=== PATIENT | male | born 1955 | race Caucasian/White ===

== ENCOUNTER → 2020-12-30 14:44 | Outpatient (BNVA) | payer OTHER, SELFPAY | PROVIDERS: PCP Internal Medicine; Visit Provider Urology ==

== ENCOUNTER → 2021-05-04 08:29 | Outpatient (BNVA) | payer OTHER, SELFPAY | PROVIDERS: PCP Internal Medicine; Visit Provider Urology ==

== ENCOUNTER → 2022-08-09 11:35 | Outpatient (BNVA) | payer OTHER, SELFPAY | PROVIDERS: PCP Internal Medicine; Visit Provider Psychiatry & Neurology Psychiatry | DX: Z13.89 Encounter for screening for other disorder (principal) ==

== ENCOUNTER 2022-09-06 22:18 | Emergency (ER) | payer OTHER, SELFPAY ==
--- NOTE | ~2022-09-06 | XR_ITS ---
EXAMINATION: XR HAND, LEFT CLINICAL INFORMATION: Trauma. COMPARISON: None available. TECHNIQUE: PA, lateral, and oblique views of the left hand. FINDINGS: Comminuted fracture of the first distal phalanx. Surrounding soft tissue thickening. No other fractures. No unexpected radiopaque foreign bodies. XR/XR hand LT min 3V IMPRESSION: Comminuted fracture of the first distal phalanx.
[2022-09-06 22:27] VITALS: BP 149/75; PULSE 84; RESP 16; TEMP 37.2; O2SAT 98; BMI 23.6
--- NOTE | 2022-09-07 00:47 | ED.EXTPRO ---
HPI - Extremity Problem General Chief complaint: Extremity Injury, Upper Stated complaint: left thumb injury Time Seen by Provider: 09/07/22 00:46 Source: patient Mode of arrival: ambulatory Limitations: no limitations History of Present Illness HPI Narrative: Patient accidentally smashed his left thumb and trunk door comes here with subungual hematoma and swelling of the left thumb no other injury patient is on aspirin Related Data Home Medications Medication Instructions Recorded Confirmed dexlansoprazole 60 mg 60 mg PO DAILY 11/02/21 08/09/22 capsule,biphase delayed release (Dexilant) ketoconazole 2 % topical cream 1 appl topical 11/02/21 08/09/22 lidocaine 5 % topical patch 1 patch topical DAILY 11/02/21 08/09/22 nortriptyline 10 mg capsule 10 mg PO BID 11/02/21 08/09/22 atorvastatin 10 mg tablet 10 mg PO DAILY 08/09/22 08/09/22 rimegepant 75 mg disintegrating 75 mg PO Q OTHER DAY 08/09/22 08/09/22 tablet (Nurtec ODT) tizanidine 2 mg capsule 2 mg PO DAILY 08/09/22 08/09/22 topiramate 50 mg tablet 50 mg PO DAILY 08/09/22 08/09/22 Previous Rx's Medication Instructions Recorded trazodone 100 mg tablet 100 mg PO BEDTIME #90 tabs 04/16/22 duloxetine 30 mg capsule,delayed 30 mg PO BID #14 caps 08/15/22 release Allergies Allergy/AdvReac Type Severity Reaction Status Date / Time No Known Allergies Allergy Verified 09/07/22 00:28 Review of Systems Review of Systems: Yes all other systems are reviewed and are negative PMFSH Social History Social History Smoked in Last 30 Days: No Use of substances other than those prescribed or required for medical reasons: No Advance Directives: No Advance Directives Information Provided: Yes Physical Exam Vital Signs: Vital Signs: Last Vital Signs Temp 98.9 F 09/06/22 22:27 Pulse 84 09/06/22 22:27 Resp 20 09/07/22 01:58 BP 149/75 H 09/06/22 22:27 Pulse Ox 98 09/06/22 22:27 O2 Del Method Room Air 04/20/23 22:27 BMI result Body Mass Index 23.6 Extrem: Hand/finger images: 1. Subungual hematoma with swelling of the thumb neurovascular intact Procedures Nail Trephination Location (finger): left and thumb Method of drainage: nail cautery Procedure successful: Yes Patient tolerated procedure: No Complications Discharge Plan Discharge Clinical Impression: Fracture of thumb, left, closed, Hematoma, subungual, thumb, left Patient Disposition: Home, Self-Care Instructions: Finger Fracture (ED) Additional Instructions: Local care as advised Wear the splint for support for 4-6 weeks Follow-up with orthopedic Ibuprofen of pain Prescriptions: No Action trazodone 100 mg tablet 100 mg PO BEDTIME Qty: 90 1RF duloxetine 30 mg capsule,delayed release(DR/EC) 30 mg PO BID Qty: 14 0RF lidocaine 5 % adhesive patch,medicated 1 patch topical DAILY nortriptyline 10 mg capsule 10 mg PO BID ketoconazole 2 % cream 1 appl topical dexlansoprazole [Dexilant] 60 mg capsule,biphase delayed releas 60 mg PO DAILY atorvastatin 10 mg tablet 10 mg PO DAILY topiramate 50 mg tablet 50 mg PO DAILY Nurtec ODT 75 mg tablet,disintegrating 75 mg PO Q OTHER DAY tizanidine 2 mg capsule 2 mg PO DAILY Referrals: Karen Trujillo MD [Physician] - 1 week Interventions: ED Discharge Assessment Last Done: 09/07/22 02:00 Discharge Date/Time: 09/07/22 02:01
[2022-09-07 01:58] VITALS: RESP 20
--- NOTE | 2022-09-07 01:58 | PC.NURSE ---
Pt a&o, no sob or chest pain, reviewed discharge instructions with pt, pt verbalized understanding, finger wrapped, positive cms, pulses.
== END 2022-09-07 02:01 | disposition home or self-care (01) ==
PROVIDERS: Emergency Provider Internal Medicine; PCP Internal Medicine
DX: S60.112A Contusion of left thumb with damage to nail, initial encounter (principal); S62.522A Displaced fracture of distal phalanx of left thumb, initial encounter for closed fracture; W23.0XXA Caught, crushed, jammed, or pinched between moving objects, initial encounter; Y93.9 Activity, unspecified; Y92.9 Unspecified place or not applicable; Y99.9 Unspecified external cause status
CPT/HCPCS: 11740; 73130; 99283; 99284

== ENCOUNTER 2022-09-11 07:10 | Outpatient (REF) | payer OTHER, SELFPAY ==
--- NOTE | ~2022-09-11 | XR_ITS ---
EXAMINATION: XR HAND, LEFT CLINICAL INFORMATION: Pain COMPARISON: Hand radiographs 09/07/2022 TECHNIQUE: PA, lateral, and oblique views of the left hand. FINDINGS: Again seen is a comminuted minimally displaced fracture of the first proximal phalanx, with minimal volar angulation. No new fracture or dislocation. Similar soft tissue swelling about the first digit. Joint spaces are maintained. XR/XR hand LT min 3V IMPRESSION: Again seen is a comminuted minimally displaced fracture of the first proximal phalanx, with minimal volar angulation. Similar soft tissue swelling about the first digit.
== END 2022-09-11 07:11 | disposition home or self-care (01) ==
LOC: HO.HOSX 07:10
PROVIDERS: Visit Provider Physician Assistant
DX: S62.522B Displaced fracture of distal phalanx of left thumb, initial encounter for open fracture (principal)
CPT/HCPCS: 73130

== ENCOUNTER → 2022-11-02 10:26 | Outpatient (BNVA) | payer MEDICARE, SELFPAY | PROVIDERS: PCP Internal Medicine; Visit Provider Urology | DX: R97.20 Elevated prostate specific antigen [PSA] (principal) | CPT/HCPCS: 51798; 99212 ==

== ENCOUNTER 2022-12-04 17:07 | Emergency (ER) | payer MEDICARE, SELFPAY ==
--- NOTE | ~2022-12-04 | XR_ITS ---
EXAMINATION: XR HAND, LEFT CLINICAL INFORMATION: Injury left fifth digit. COMPARISON: None available. TECHNIQUE: PA, lateral, and oblique views of the left hand. FINDINGS: Comminuted fracture of the distal tuft of the fifth finger. Fracture fragments mildly displaced. Associated soft tissue laceration and bandage over the distal fifth finger. No radiopaque foreign body. XR/XR hand LT 2V IMPRESSION: Comminuted fracture of the distal tuft of the fifth finger.
--- NOTE | 2022-12-04 17:51 | ED_ITS ---
HPI - Extremity Injury (Upper) General Chief Complaint: Extremity Injury, Upper Stated Complaint: left hand finger injury Time Seen by Provider: 12/04/22 19:11 Source: patient Mode of arrival: ambulatory History of Present Illness HPI narrative: 67-year-old male up-to-date on tetanus crush his left 5th finger tip between 2 logs. Related Data Home Medications Medication Instructions Recorded Confirmed dexlansoprazole 60 mg 60 mg PO DAILY 11/02/21 11/02/22 capsule,biphase delayed release (Dexilant) ketoconazole 2 % topical cream 1 appl topical 11/02/21 11/02/22 lidocaine 5 % topical patch 1 patch topical DAILY 11/02/21 11/02/22 nortriptyline 10 mg capsule 10 mg PO BID 11/02/21 11/02/22 atorvastatin 10 mg tablet 10 mg PO DAILY 08/09/22 11/02/22 tizanidine 2 mg capsule 2 mg PO DAILY 08/09/22 11/02/22 topiramate 50 mg tablet 50 mg PO DAILY 08/09/22 11/02/22 Previous Rx's Medication Instructions Recorded trazodone 100 mg tablet 100 mg PO BEDTIME #90 tabs 09/27/22 duloxetine 30 mg capsule,delayed 30 mg PO BID #14 caps 11/26/22 release amoxicillin 875 mg-potassium 1 tab PO BID 5 days #10 tabs 12/04/22 clavulanate 125 mg tablet Allergies Allergy/AdvReac Type Severity Reaction Status Date / Time No Known Allergies Allergy Verified 11/02/22 10:34 Review of Systems Review of Systems: Pertinent positives and negatives as stated in HPI [facility] Past Medical History Source: nursing notes reviewed Medical History Chronic headache disorder Dysthymia (or depressive neurosis) Generalized anxiety disorder History of GI bleed Social History Social History Advance Directives: No Advance Directives Information Provided: No Current occupational status: employed 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 GENERAL: Well developed, well nourished, in no acute distress. HEAD: Normocephalic/atraumatic EYES: PERRLA, EOMI LUNGS: Normal breath sounds. No adventitious sounds or accessory muscle use. SpO2<99> CARDIOVASCULAR: Regular rate and rhythm without noted murmurs ABDOMEN: Soft, non-tender, non-distended with bowel sounds. MUSCULOSKELETAL: No tenderness, deformities, or effusions noted on gross inspection. EXTREMITIES: No cyanosis, clubbing or edema; LEFT 5TH DIGIT: There is crust tissue but tip of finger is intact, there does not appear to be any nail involvement. SKIN: Inspection of the skin reveals no rashes NEUROLOGIC: Alert and oriented x 4. Strength and sensation to light touch were grossly intact x 4. Course Course Course Narrative: This is a rapid medical exam. Deferred additional HPI, ROS, PE to primary provider. 67 yo male right hand dominant here with complaints of crush injury to left 5th finger which occurred while working. On exam patient has a laceration to the distal volar aspect of the 5th digit on the left hand that will need suture repair. Will check x-ray due to crush injury. His tetanus up-to-date. Vital stable Reevaluation(s) Reevaluation #1: This laceration was closed in conjunction with [facility]. See procedure note. Medical Decision Making Medical Decision Making MDM Narrative: 67-year-old male with history and clinical presentation consistent with crush laceration to the distal tip of the left 5th digit, on review of x-ray there is a small tuft fracture, will close with sutures and discharged with a short course of antibiotics, no tetanus vaccine at this time as patient is up-to-date. Procedures Laceration Laceration 1: Site: hand (left 5th digit ) Side (If applicable): left Size (cm): 2 Description: flap and irregular Pre-repair: wound explored and irrigated extensively (1L NS ) Skin layer closed with: vicryl Size (cm): 5-0 Number of sutures: 6 Technique: simple, interrupted Laceration 2: Site: hand (left 5th digit ) Side (If applicable): left Size (cm): 1.5 Description: flap and irregular Depth: simple, single layer Pre-repair: wound explored and irrigated extensively (1L NS) Skin layer closed with: vicryl Size (cm): 5-0 Number of sutures: 3 Technique: simple, interrupted Nerve Block Nerve Block 1: Time out performed: Yes Local Anesthetic: lidocaine 1% Amount of anesthesia used (mL): 4 Side: left Nerve Blocks: digital Procedure Successful: Yes Patient Tolerated Procedure: well Complications: none Discharge Plan Discharge Clinical Impression: Laceration of finger of left hand, Closed fracture of tuft of distal phalanx of finger Patient Disposition: Home, Self-Care Instructions: Care For Your Stitches (ED), Laceration (ED), Finger Fracture (ED) Additional Instructions: 1. Resume all home medications as prescribed. Complete the course of antibiotics as prescribed. 2. Recommend [id number] Tylenol/ibuprofen as needed for pain control. Keep finger elevated when possible. 3. Return for suture removal in 7 days Return to the ER for any worsening symptoms. Prescriptions: New amoxicillin-pot clavulanate 875-125 mg tablet 1 tab PO BID 5 Days Qty: 10 0RF No Action trazodone 100 mg tablet 100 mg PO BEDTIME Qty: 90 1RF duloxetine 30 mg capsule,delayed release(DR/EC) 30 mg PO BID Qty: 14 0RF lidocaine 5 % adhesive patch,medicated 1 patch topical DAILY nortriptyline 10 mg capsule 10 mg PO BID ketoconazole 2 % cream 1 appl topical dexlansoprazole [Dexilant] 60 mg capsule,biphase delayed releas 60 mg PO DAILY atorvastatin 10 mg tablet 10 mg PO DAILY topiramate 50 mg tablet 50 mg PO DAILY tizanidine 2 mg capsule 2 mg PO DAILY Referrals: Nawaf Willams MD [Primary Care Provider] -
[2022-12-04 17:52] VITALS: BP 155/99; PULSE 68; RESP 18; TEMP 36.6; O2SAT 99; BMI 25.1
[2022-12-04 19:20] VITALS: BP 144/87; PULSE 66; RESP 14
--- NOTE | 2022-12-04 19:28 | PC.NURSE ---
Patient presents to ED with complaints of left 5th digit pain. Around 17:00 patient was chopping wood and dropped a log on his left hand. Patient states that his finger feels cold. Bandage removed by this nurse, bleeding has stopped at this time, lacerations to medial and lateral sides of finger. +sensation and movement. Alert and oriented x3, speaking clear full sentences, resp even and unlabored, skin warm dry intact.
--- OUTSIDE RECORDS SUMMARY | 2022-12-04 19:33 | XMS_ITS | Patient Health Record ---
Author Name Unknown Organization [facility] Address [address] [place] [address] Care Team Providers Care Infantryman Name Role Phone Arnaldo Archer Primary Care Provider Nawaf Willams Unavailable Unavailable Lauren Tomlin Unavailable Slime Churchill Unavailable [phone] ALLERGIES No Known Allergies REASON FOR REFERRAL No Information MEDICATIONS Medication SIG (Take, Route, Frequency, Duration) Notes Start Date End Date Status Ubrelvy 100 MG 1 tab along with 2 ibuprofen Orally at onset of migraine. May repeat once after 2 hrs if headache returns. for 30 days 10/23/2022 04/20/2023 Active Vitamin B-2 100 MG 2 tablets Orally Twice a day with meals for 30 days 04/29/[address] 30 MG CAP 60 1 qam 04/28/2020 Not-Taking Eletriptan Hydrobromide 40 MG 1 tablet Orally at onset of migraine. May repeat dose after 2 hours if migraine recurs. for 30 days Active Sildenafil Citrate 50 MG 1 tablet as nee ded Orally Once a day for 30 days 04/28/2020 Active GLUCOSAMINE-CHONDROITIN LIQ 1,500-1,200 MG/30 ML 0 1 qhs for 30 04/28/[address] 60 MG CAPSULE 0 1 qam for 30 0 Active Nurtec 75 MG 1 tablet on the tongue and allow to dissolve Orally Not-Taking tiZANidine HCl 2 MG 1 capsule as needed Orally At time of sleep for 90 days Active traZODone HCl 100 MG 1 tablet at bedtime Orally Once a day Active DULoxetine HCl 30 MG 2 capsules Orally a t bedtime for 30 days 03/08/2022 Active LOMOTIL 2.5-0.025 MG TABLET 0 1 tab prn for 30 04/28/2020 Active VITAMIN D3 1,000 UNIT SOFTGEL 25 MCG (1,000 UNIT) 0 1 qam for 30 04/28/2020 Active ring relief 0 1 qhs for tinnitus for 30 04/28/2020 Active Nortriptyline HCl 10 MG 2 capsule by daniel th at bedtime for 30 days Active Topiramate 50 MG 1 tablet Orally Once a day for 90 days Active SOCIAL HISTORY Sex Assigned At : Social History Observation Description Sex Assigned At Unknown PROBLEMS Problem Type ICD Code Onset Dates Problem Status W/U Status Risk SNOMED Code Notes Problem Chronic migraine without aura, not intractable, without status migrainosus (G43.709) Active confirmed Problem Chronic migraine without aura, intractable, with status migrainosus (G43.711) Active confirmed Chronic intractable migraine without aura ([id number]) VITAL SIGNS Heart Rate 66 /min 10/23/2022 Blood pressure diastolic 87 mm Hg 10/23/2022 Weight-kg 76.79 kg 10/23/2022 Height 69 in 10/23/2022 Blood pressure systolic 133 mm Hg 10/23/2022 Weight 169.3 lbs 10/23/2022 BMI 25 kg/m2 10/23/2022 Encounters Encounter Location Date [facility] [address] [place] [id number] 03/08/2022 Lauren Tomlin Chronic migrai ne without aura, intractable, with status migrainosus G43.711 [facility] [address] [address] 08/20/2022 Slime Zhao Chronic migraine without aura, intractable, with status migrainosus G43.711 [facility] [address] [address] 10/23/2022 Slime Zhao Chronic migraine without aura, not intractable, without status migrainosus G43.709 [facility] [address] [place] [id number] 12/05/2021 Arnaldo Méndezley [facility] [address] [address] 12/28/2021 Arnaldo Archer [facility] [address] [address] 11/19/2022 Slime Churchill [facility] [address] [address] 12/03/2022 Slime Churchill ASSESSMENTS Encounter Date Diagnosis Assessment Notes Treatment Notes Treatment Clinical Notes 03/08/2022 Chronic migraine without aura, intractable, with status migrainosus (ICD-10 - G43.711) Increase Duloxetine, 30mg tablets sent, take total of 90mg a day for 1 week, then increase to 120mg a day. Follow up in 3-4 months or sooner as needed Patient agrees with the plan. All questions were answered. Patient instructed to call with any questions or concerns. Patient instructed to keep headache logs. Reviewed worrisome signs and when to call- change in headache pattern, worsening headache, headache that awakens, dizziness, vision changes, balance changes, changes with speech, worst headache of life. Medication reconciliation completed. Previous office visit note reviewed. 08/20/2022 Chronic migraine without aura, intractable, with status migrainosus (ICD-10 - G43.711) Patient given Ublelvy samples in office to trial. Continue current medications as prescribed. Follow up in 2 months or sooner as needed. Patient agrees with plan. All questions and concerns addressed. Patient instructed to maintain headache logs. Patient advised to contact office for any change in headache pattern, increase in frequency, duration, or severity of headaches. Medication reconciliation completed. Previous office visit note reviewed. 10/23/2022 Chronic migraine without aura, not intractable, without status migrainosus (ICD-10 - G43.709) Continue current medications as prescribed. Follow up in 4 months or sooner as needed. Patient agrees with plan. All questions and concerns addressed. Patient instructed to maintain headache logs. Patient advised to contact office for any change in headache pattern, increase in frequency, duration, or severity of headaches. Medication reconciliation completed. Previous office visit note reviewed. PLAN OF TREATMENT Next Appt Details Provider Name:Slime Huston is, 02/20/2023 09:00:00 AM, [address], [address], [place], [address], Insurance Providers Payer Name Payer Address Payer Phone Subscriber Number Group Number Insured Name Patient Relationship to Insured Coverage Start Date Coverage End Date [facility] [address] [place] [id number] Samuel Mcdonnell Self - patient is the insured 3 MEDICAL (GENERAL) HISTORY Medical History History ICD Code Headaches Anxiety GERD GI bleed Erectile Dysfunction Sleep disturbance HLD Surgical History Surgery Date(Month/Year) left elbow surgery appendectomy Hospitalization History Reason Date(Month/Year) Broken left hand 09/2022
== END 2022-12-04 21:47 | disposition home or self-care (01) ==
PROVIDERS: Emergency Provider Student in an Organized Health Care Education/Training Program; PCP Internal Medicine
DX: S62.637B Displaced fracture of distal phalanx of left little finger, initial encounter for open fracture (principal); W23.0XXA Caught, crushed, jammed, or pinched between moving objects, initial encounter; Y93.9 Activity, unspecified; Y92.9 Unspecified place or not applicable; Y99.9 Unspecified external cause status
CPT/HCPCS: 12002; 73120; 99283

== ENCOUNTER 2023-01-23 11:42 | Outpatient (AMB) | payer MEDICARE, SELFPAY ==
--- NOTE | 2023-01-23 11:51 | MHC.OFFVISPS ---
Intake Intake Visit Reasons: depression Allergies No Known Allergies Allergy (Verified 11/02/22 10:34) Medication List - Last Reconciled 01/23/23 by Ricky Meraz MD amoxicillin-pot clavulanate 875-125 mg 1 tab PO BID 5 days atorvastatin 10 mg PO DAILY dexlansoprazole (Dexilant) 60 mg PO DAILY duloxetine 30 mg PO BID ketoconazole 2% 1 appl topical lidocaine 5% 1 patch topical DAILY nortriptyline 10 mg PO BID tizanidine 2 mg PO DAILY topiramate 50 mg PO DAILY trazodone 100 mg PO BEDTIME HPI- Psychiatric Chief Complaint: depression HPI Narrative: Pt seen in f/u has some degree chronic anxiety can get quite stressed long hx of chronic daily [facility] in [place] does pressure pt relaxation skills on nortrip 10 bid cymbalta 30 bid topamax 50 mg . Quality of life generally okay does have chronic mild anxiety dysphoria seems to do better when stays on Cymbalta Past Psychiatric History: hyx chronic anxiety and depression Mental Status Exam Mental Status Exam Narrative: Mental Status Exam Narrative: Appearance: Casually dressed Behavior: Cooperative appropriate psychomotor: Within normal limits Speech: Normal volume and prosody Thought proccess logical and goal-directed Thought content: Future oriented focused on mother aging issues Mood: Some anxiety mild dysphoria Affect: Appropriate to mood full affect SI:denies HI:denies VH/AH:none Delusions: None Insight/judgment: Good insight and judgment Memory/cog: Intact Assessment and Plan Assessment & Plan (1) Generalized anxiety disorder: Status: Acute Code(s): F41.1 - Generalized anxiety disorder (2) Dysthymia (or depressive neurosis): Status: Acute Code(s): F34.1 - Dysthymic disorder (3) Chronic headache disorder: Status: Acute Code(s): R51.9 - Headache, unspecified; G89.29 - Other chronic pain Plan Generally improved on duloxetine does better on 60 mg dose continue trazodone chronic recommendations for stress management relaxation techniques breathing Medications: Changed From duloxetine 30 mg PO BID 14 caps 0RF To duloxetine 30 mg PO BID 180 caps 1RF 3 months Refilled trazodone 100 mg PO BEDTIME 90 tabs 1RF Counseling and coordination of Care Details-Self Mgmt counseling: Issues related to chronic headache and management aging issues intermediate issues related to his mother and other aging process Details: I spent [] minutes reviewing the record, seeing the patient and documenting in the medical record. Counseling provided to the patient/caregiver as outlined below. Addressed patient/caregiver concerns regarding current medication regime including effective adherence. Addressed patient/caregiver concerns regarding diagnosis and prognosis including accuracy of diagnosis, prognosis over time, impact of diagnosis. Addressed patient/caregiver concerns regarding impact of recent stressors. 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
== END 2023-01-23 12:11 | disposition home or self-care (01) ==
LOC: HO.HOP 11:42
PROVIDERS: PCP Internal Medicine; Visit Provider Psychiatry & Neurology Psychiatry
DX: F41.1 Generalized anxiety disorder (principal); F34.1 Dysthymic disorder; R51.9 Headache, unspecified; G89.29 Other chronic pain
CPT/HCPCS: 99214

== ENCOUNTER → 2023-01-23 11:42 | Outpatient (BNVA) | payer MEDICARE, SELFPAY | PROVIDERS: PCP Internal Medicine; Visit Provider Psychiatry & Neurology Psychiatry | DX: F34.1 Dysthymic disorder (principal); F41.1 Generalized anxiety disorder; G89.29 Other chronic pain; R51.9 Headache, unspecified; Z79.899 Other long term (current) drug therapy | CPT/HCPCS: 99212 ==

== ENCOUNTER 2023-07-02 12:01 | Outpatient (AMB) | payer MEDICARE, SELFPAY ==
--- NOTE | 2023-07-02 11:26 | MHC.OFFVISPS ---
Intake Intake Visit Reasons: depression Allergies No Known Allergies Allergy (Verified 11/02/22 10:34) HPI- Psychiatric Chief Complaint: depression HPI Narrative: Pt decreased cymbalta to 30 mg secondary to sexual side effects he has not noticed a significant difference regarding his mood or headaches patient has a general chronic low level of dissatisfaction he does continue to work some difficulty dealing with the aging process and issues related to pain lack of energy at times Past Psychiatric History: hyx chronic anxiety and depression Mental Status Exam Mental Status Exam Narrative: Mental Status Exam Narrative: Appearance: Casually dressed Behavior: Cooperative appropriate psychomotor: Within normal limits Speech: Normal volume and prosody Thought proccess logical and goal-directed Thought content: Future oriented focused on aging issues Mood: Some anxiety mild dysphoria Affect: Appropriate to mood full affect SI:denies HI:denies VH/AH:none Delusions: None Insight/judgment: Good insight and judgment patient knows that he needs to maintain some structure would have difficulty with full group home Memory/cog: Intact Assessment and Plan Assessment & Plan (1) Dysthymia (or depressive neurosis): Status: Acute Code(s): F34.1 - Dysthymic disorder (2) Chronic headache disorder: Status: Acute Code(s): R51.9 - Headache, unspecified; G89.29 - Other chronic pain (3) Generalized anxiety disorder: Status: Acute Code(s): F41.1 - Generalized anxiety disorder Plan Patient has been having some degree of erectile dysfunction discuss discussed with him that this could be a sign vascular disease we discussed trying to taper off of Cymbalta and see if that has been a significant contributing factor. Patient has already decreased Cymbalta to 30 mg will try in use every other day for a few weeks and then discontinue. Patient explained possibility of withdrawal symptoms and possible need to lowered at 20 mg. We also discussed option to try an alternative with less propensity for erectile dysfunction. Also discussed use of Flomax possibly for improvement of sleep with question of prostatic hypertrophy patient to discuss this with his primary care or with Dr. White he continues on Topamax 50 mg trazodone 100 mg at bedtime patient does use light box follow-up 3-4 months patient call if withdrawal symptoms were worsening depressive symptoms Counseling and coordination of Care Pt. Self Management counseling: Breathing, Exercise and Behavior activation Medication management counseling: Effectiveness and Side effects Diagnosis and Prognosis Counseling: Impact of diagnosis on life functions and Adequacy of current interventions Details: I spent [42] minutes reviewing the record, seeing the patient and documenting in the medical record. Counseling provided to the patient/caregiver as outlined below. Addressed patient/caregiver concerns regarding current medication regime including effective adherence. Addressed patient/caregiver concerns regarding diagnosis and prognosis including accuracy of diagnosis, prognosis over time, impact of diagnosis. Addressed patient/caregiver concerns regarding impact of recent stressors. 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
== END 2023-07-02 15:32 | disposition home or self-care (01) ==
LOC: HO.HOP 12:01
PROVIDERS: PCP Internal Medicine; Visit Provider Psychiatry & Neurology Psychiatry
DX: F34.1 Dysthymic disorder (principal); R51.9 Headache, unspecified; G89.29 Other chronic pain; F41.1 Generalized anxiety disorder
CPT/HCPCS: 90833; 99213

== ENCOUNTER → 2023-07-02 12:01 | Outpatient (BNVA) | payer MEDICARE, SELFPAY | PROVIDERS: PCP Internal Medicine; Visit Provider Psychiatry & Neurology Psychiatry | DX: F34.1 Dysthymic disorder (principal); F41.1 Generalized anxiety disorder; R51.9 Headache, unspecified; G89.29 Other chronic pain | CPT/HCPCS: 99212 ==

== ENCOUNTER 2023-10-30 08:14 | Outpatient (AMB) | payer MEDICARE, SELFPAY ==
--- NOTE | 2023-10-30 08:21 | MHC.OFFVIS ---
Intake Visit Reasons: 1y PSA(Set) Intake Note: Patient is Present for Follow Up PSA Urology Medication: None Antibiotic Allergies:None Blood Thinners:None Last PVR: Low 11ml Patient denies any urinary issues at this time. Hedge Fund Principal Required: No Allergies No Known Allergies Allergy (Verified 10/30/23 08:22) HPI Comments Details: Samuel is a pleasant male. He is a patient of Dr. Willams. He is referred for the following urologic conditions - elevated PSA - erectile dysfunction - hot flashes Yearly review Stable PSA GLORIA normal Effective voiding parameters with good emptying and stream PCPT 6% high risk - at threshold for MRI/biopsy Erectile dysfunction Progressive Has been on SSRIs Noted to have hot flashes 03:00 in the morning Trial daily tadalafil with three-month follow-up testosterone and estrogen labs - Neurologist called william moon Elevated PSA Reports prior PSA had been upper end normal range Minimal issues with urination GLORIA normal No family history prostate cancer Has been given instructions optimized PSA testing PSA 03/09 3.9, 10/08 3.6, 10/09 3.6, 08/10 4.1 Repeat in 12 months [facility] Medical History Generalized anxiety disorder Dysthymia (or depressive neurosis) History of GI bleed Chronic headache disorder Social History Current occupational status: employed 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 Review of Systems Const Denies chills and Denies fever(s) Card Reports no additional complaints and Denies syncope Resp Denies cough GI Denies abdominal pain and Denies heartburn Reports as per HPI and Denies change in libido Neuro Denies syncope Psych Denies change in libido Endo Denies change in libido Physical Exam Const General: cooperative, healthy appearing, comfortable and no acute distress Orientation/consciousness: patient oriented x3 HEENT Face and sinus: Yes normal facial exam Mouth: moist mucous membranes Neck Neck: Yes normal visual inspection, Yes full ROM and Yes trachea midline Chest Chest palpation & inspection: normal inspection of the chest Resp Effort & Inspection: normal respiratory effort, able to speak in complete sentences and no respiratory distress GI Inspection: Yes normal to inspection Back/Spine/Pelvis Cervical Spine: normal cervical lordosis Thoracic/Lumbar Spine: thoracic and lumbar spine normal to inspection Skin General skin exam: no rashes or lesions noted Neuro General: patient oriented x3, gait normal, tone normal and moves all extremities Extrem General: Yes normal to inspection and Yes capillary refill normal Assessment & Plan Assessment & Plan (1) Hot flashes: Code(s): R23.2 - [place] Category: Medical (2) Erectile dysfunction: Code(s): N52.9 - Male erectile dysfunction, unspecified Category: Medical (3) Elevated PSA: Code(s): R97.20 - Elevated prostate specific antigen [PSA] Category: Medical Plan Three-month follow-up labs Trial tadalafil Orders: Orders Estradiol Ultra Sensitive 3 Months E29.1 - Testicular hypofunction, R23.2 - [place] Prostate Specific Antigen 3 Months R97.20 - Elevated prostate specific antigen [PSA] Testosterone, Free/Total 3 Months R23.2 - [place] Medications: New tadalafil 5 mg PO DAILY 90 days 90 tabs 0RF sexual activity N52.9 - Male erectile dysfunction, unspecified Patient Instructions: Imaging studies, laboratory and physical exam results were discussed and reviewed in detail. No major barriers to patient understanding were identified. An opportunity to ask questions regarding the treatment plan was provided. All questions were answered. The patient expressed understanding and agreement with the above treatment plan. The patient is aware they should contact our office by phone for worsening of their current condition or the appearance of new urologic symptoms. Compliance is encouraged with any medications and followup testing that is ordered. It is a privilege to participate in the urologic care of your patient. If you have any questions or concerns regarding treatment for the above conditions, or other urologic issues, please do not hesitate to contact me. The office telephone contact is [phone]. This note is constructed using voice recognition software. While every effort has been made to ensure accuracy city supervisor errors may have been included. Yours sincerely, Dr Johnny White MD, [facility] - Urology Providers of Expert, Compassionate Care for the Genitourinary System Coding Level of Care Code Est Pt Level 4 (92834) Diagnoses Hot flashes R23.2 Erectile dysfunction N52.9 Elevated PSA R97.20
== END 2023-10-30 08:50 | disposition home or self-care (01) ==
PROVIDERS: PCP Internal Medicine; Visit Provider Urology
DX: R23.2 Flushing (principal); N52.9 Male erectile dysfunction, unspecified; R97.20 Elevated prostate specific antigen [PSA]
CPT/HCPCS: 99213

== ENCOUNTER → 2023-10-30 08:14 | Outpatient (BNVA) | payer MEDICARE, SELFPAY | PROVIDERS: PCP Internal Medicine; Visit Provider Urology | DX: R23.2 Flushing (principal); N52.9 Male erectile dysfunction, unspecified; R97.20 Elevated prostate specific antigen [PSA] | CPT/HCPCS: 99212 ==

== ENCOUNTER 2023-12-19 11:37 | Outpatient (AMB) | payer MEDICARE, SELFPAY ==
--- NOTE | 2023-12-19 11:39 | A.OFFPSYCH_ITS ---
Intake Intake Visit Reasons: depression Allergies No Known Allergies Allergy (Verified 10/30/23 08:22) HPI- Psychiatric Chief Complaint: depression HPI Narrative: Pt is a 68 yo male mother 97 yo living [place] she grew up with certain level of desperation mother worked many hrs in the past .Pt has been dealing with stress related to dealing with his mother's demands lack of appreciation and difficulty that he has in setting limits feeling somewhat guilty at times and how he is feeling. Patient did go off duloxetine did not feel significantly better Past Psychiatric History: hyx chronic anxiety and depression Mental Status Exam Mental Status Exam Narrative: Mental Status Exam Narrative: Appearance: Casually dressed Behavior: Cooperative appropriate psychomotor: Within normal limits Speech: Normal volume and prosody Thought proccess logical and goal-directed Thought content: Future oriented focused on issues with his mother aging issues Mood: Some anxiety Affect: Appropriate to mood full affect SI:denies HI:denies VH/AH:none Delusions: None Insight/judgment: Good insight and judgment patient knows that he needs to maintain some structure would have difficulty with full senior living Memory/cog: Intact Assessment and Plan Assessment & Plan (1) Dysthymia (or depressive neurosis): Status: Acute Code(s): F34.1 - Dysthymic disorder (2) Chronic headache disorder: Status: Acute Code(s): R51.9 - Headache, unspecified; G89.29 - Other chronic pain Plan Continue trazodone duloxetine discontinued monitor response to duloxetine discontinuation would consider spravato TMS continue trazodone patient with chronic tension/migraine headache he is being followed by a specialty Center have discussed his overuse of nonnarcotic pain medication and risks there of Medications: Refilled trazodone 100 mg PO BEDTIME 90 tabs 1RF Discontinued duloxetine Discontinued Reason: Change Referral Type 30 mg PO BID 3 months 180 caps 1RF Counseling and coordination of Care Details-Self Mgmt counseling: Issues related to aging issues related to dealing with narcissistic parent Details: I spent [] minutes reviewing the record, seeing the patient and documenting in the medical record. Counseling provided to the patient/caregiver as outlined below. Addressed patient/caregiver concerns regarding current medication regime including effective adherence. Addressed patient/caregiver concerns regarding diagnosis and prognosis including accuracy of diagnosis, prognosis over time, impact of diagnosis. Addressed patient/caregiver concerns regarding impact of recent stressors. 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
== END 2023-12-19 12:15 | disposition home or self-care (01) ==
LOC: HO.HOP 11:37
PROVIDERS: PCP Internal Medicine; Visit Provider Psychiatry & Neurology Psychiatry
DX: F34.1 Dysthymic disorder (principal); R51.9 Headache, unspecified; G89.29 Other chronic pain
CPT/HCPCS: 99213

== ENCOUNTER → 2023-12-19 11:37 | Outpatient (BNVA) | payer MEDICARE, SELFPAY | PROVIDERS: PCP Internal Medicine; Visit Provider Psychiatry & Neurology Psychiatry ==

== ENCOUNTER 2024-01-27 09:33 | Outpatient (REF) | payer MEDICARE, SELFPAY ==
[2024-01-27 14:10] LABS: Prostate Specific Antigen 3.66 ng/mL (<0.05-4.0)
[2024-01-31 21:28] LABS: Testosterone, Free 19.8 pg/mL (35.0-155.0); Testosterone, Total 367 ng/dL (250-1100)
[2024-02-04 23:38] LABS: Estradiol Ultra Sensitive 13 pg/mL (< OR = 29)
== END 2024-01-27 09:34 | disposition home or self-care (01) ==
LOC: HO.HMGCLDS 09:33
PROVIDERS: PCP Internal Medicine; Visit Provider Urology
DX: E29.1 Testicular hypofunction (principal); R23.2 Flushing; R97.20 Elevated prostate specific antigen [PSA]; Z12.5 Encounter for screening for malignant neoplasm of prostate
CPT/HCPCS: 36415; 82670; 84153; 84402; 84403

== ENCOUNTER 2024-02-27 10:26 | Outpatient (AMB) | payer MEDICARE, SELFPAY ==
--- NOTE | 2024-02-27 10:28 | A.OFFVIS_ITS ---
Intake Visit Reasons: PSA/Testosterone(set) Intake Note: Patient is Present for Telephone Follow Up PSA/Testosterone Urology Med: Tadalafil Antibiotic Allergy:None Blood Thinner:None Allergies No Known Allergies Allergy (Verified 10/30/23 08:22) HPI Comments Details: Samuel is a pleasant male. He is a patient of Dr. Willams. He is referred for the following urologic conditions - elevated PSA - erectile dysfunction - hot flashes Telemedicine Evaluation 15 min Consultation [employer] [facility] Video Three-month follow-up Still with hot flashes Did not notice much benefit with 5 mg tadalafil Testosterone total normal however free is low Estradiol 13 which is a little low for males Increase tadalafil daily to 10 mg and repeat lab work in 2 months Stable PSA GLORIA normal Effective voiding parameters with good emptying and stream PCPT 6% high risk - at threshold for MRI/biopsy Erectile dysfunction Progressive - Has been on SSRIs Noted to have hot flashes 03:00 in the morning Trial daily tadalafil with three-month follow-up testosterone and estrogen labs - Neurologist called william moon Elevated PSA Reports prior PSA had been upper end normal range Minimal issues with urination GLORIA normal No family history prostate cancer Has been given instructions optimized PSA testing PSA 03/09 3.9, 10/08 3.6, 10/09 3.6, 08/10 4.1, 02/10 T 367 F 19 Repeat in 12 months [facility] Medical History Generalized anxiety disorder Dysthymia (or depressive neurosis) History of GI bleed Chronic headache disorder Social History Current occupational status: employed 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 Review of Systems Const All systems reviewed & are unremarkable except as noted in HPI and below Reports no additional complaints Resp Reports no additional complaints GI Reports no additional complaints Reports as per HPI Musc Reports no additional complaints Physical Exam Telemedicine evaluation Appropriate responses Regular breathing rate and rhythm HEENT Head: Yes normal to inspection Ears: hearing grossly normal bilaterally Eyes General: appearance normal, both eyes and all related structures Neck Neck: Yes normal visual inspection Chest Chest palpation & inspection: normal inspection of the chest Resp Effort & Inspection: normal respiratory effort and able to speak in complete sentences Telehealth Telehealth Location of provider rendering services: practice address Location of patient: address on file Patient Identification confirmed using: Name, : Yes Telehealth method: voice only Patient verbally consented to treatment: Yes Patient verbally consented to billing insurance company: Yes Patient informed of any privacy concerns related to visit: Yes Assessment & Plan Assessment & Plan (1) Hot flashes: Code(s): R23.2 - [place] Category: Medical (2) Erectile dysfunction: Code(s): N52.9 - Male erectile dysfunction, unspecified Category: Medical Plan Increased tadalafil 10 mg Consider progesterone Repeat lab work Orders: Orders Sex Hormone Binding Globulin 2 Months N52.9 - Male erectile dysfunction, unspecified Follicle Stimulating Hormone 2 Months N52.9 - Male erectile dysfunction, unspecified Estradiol Ultra Sensitive 2 Months E29.1 - Testicular hypofunction, N52.9 - Male erectile dysfunction, unspecified Testosterone, Free/Total 2 Months N52.9 - Male erectile dysfunction, unspecified TSH reflex Free T4 2 Months N52.9 - Male erectile dysfunction, unspecified Lutenizing Hormone 2 Months N52.9 - Male erectile dysfunction, unspecified Medications: Changed From tadalafil 5 mg PO DAILY 90 days 90 tabs 0RF sexual activity N52.9 - Male erectile dysfunction, unspecified To tadalafil 10 mg PO DAILY 90 tabs 0RF sexual activity 90 days N52.9 - Male erectile dysfunction, unspecified Patient Instructions: Imaging studies, laboratory and physical exam results were discussed and reviewed in detail. No major barriers to patient understanding were identified. An opportunity to ask questions regarding the treatment plan was provided. All questions were answered. The patient expressed understanding and agreement with the above treatment plan. The patient is aware they should contact our office by phone for worsening of their current condition or the appearance of new urologic symptoms. Compliance is encouraged with any medications and followup testing that is ordered. It is a privilege to participate in the urologic care of your patient. If you have any questions or concerns regarding treatment for the above conditions, or other urologic issues, please do not hesitate to contact me. The office telephone contact is [phone]. This note is constructed using voice recognition software. While every effort has been made to ensure accuracy hotel or motel cleaning supervisor errors may have been included. Yours sincerely, Dr Johnny White MD, [facility] - Urology Providers of Expert, Compassionate Care for the Genitourinary System Coding Level of Care Code Tele Est Pt Level 3 (02003) Diagnoses Hot flashes R23.2 Erectile dysfunction N52.9
== END 2024-02-27 11:02 | disposition home or self-care (01) ==
LOC: HO.HUSH 10:26
PROVIDERS: PCP Internal Medicine; Visit Provider Urology
DX: R23.2 Flushing (principal); N52.9 Male erectile dysfunction, unspecified
CPT/HCPCS: 99442

== ENCOUNTER → 2024-02-27 10:26 | Outpatient (BNVA) | payer MEDICARE, SELFPAY | PROVIDERS: PCP Internal Medicine; Visit Provider Urology ==

== ENCOUNTER 2024-03-26 12:56 | Outpatient (AMB) | payer MEDICARE, SELFPAY ==
--- NOTE | 2024-03-26 13:12 | A.OFFPSYCH_ITS ---
Intake Intake Visit Reasons: depression Allergies No Known Allergies Allergy (Verified 10/30/23 08:22) HPI- Psychiatric Chief Complaint: depression HPI Narrative: Pt seen in psych f/u mood has been down has been off cymbalta taking trazadone 100 hs .Pt has chronic manning bilateral goes to [facility] headaches last all day x days often topamax depakote not helpful has tinnitus takes riboflavin has been off cymbalta x 6 months seems like he may be in more of a low mood lack of energy tends to cycle down this time your unclear if related to being off of Cymbalta . Patient with chronic daily headache Past Psychiatric History: hyx chronic anxiety and depression Mental Status Exam Mental Status Exam Narrative: Mental Status Exam Narrative: Appearance: Casually dressed Behavior: Cooperative appropriate psychomotor: Within normal limits Speech: Normal volume and prosody Thought proccess logical and goal-directed Thought content: Future oriented focused on issues with his work possibly cutting back issues regarding to having chronic headache Mood: Some anxiety dysphoria Affect: Appropriate to mood full affect SI:denies HI:denies VH/AH:none Delusions: None Insight/judgment: Good insight and judgment patient knows that he needs to maintain some structure would have difficulty with full usp This continues to be true Memory/cog: Intact Assessment and Plan Assessment & Plan (1) Dysthymia (or depressive neurosis): Status: Acute Code(s): F34.1 - Dysthymic disorder (2) Generalized anxiety disorder: Status: Acute Code(s): F41.1 - Generalized anxiety disorder (3) Chronic headache disorder: Status: Acute Code(s): R51.9 - Headache, unspecified; G89.29 - Other chronic pain Plan restart light box muse headband recommended [facility] headache ctr migralief restart duloxetine 30 mg daily encourage daily meditation question of chronic tension headache patient also remains on nortriptyline 25 b.i.d. by has headache specialist Counseling and coordination of Care Pt. 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 Counseling provided to the patient/caregiver as outlined below. Addressed patient/caregiver concerns regarding current medication regime including effective adherence. Addressed patient/caregiver concerns regarding diagnosis and prognosis including accuracy of diagnosis, prognosis over time, impact of diagnosis. Addressed patient/caregiver concerns regarding impact of recent stressors. 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
== END 2024-03-26 13:41 | disposition home or self-care (01) ==
LOC: HO.HOP 12:56
PROVIDERS: PCP Internal Medicine; Visit Provider Psychiatry & Neurology Psychiatry
DX: F34.1 Dysthymic disorder (principal); F41.1 Generalized anxiety disorder; R51.9 Headache, unspecified; G89.29 Other chronic pain
CPT/HCPCS: 90833; 99213

== ENCOUNTER → 2024-03-26 12:56 | Outpatient (BNVA) | payer MEDICARE, SELFPAY | PROVIDERS: PCP Internal Medicine; Visit Provider Psychiatry & Neurology Psychiatry | DX: R51.9 Headache, unspecified (principal); G89.29 Other chronic pain; F34.1 Dysthymic disorder; F41.1 Generalized anxiety disorder | CPT/HCPCS: 99212 ==

== ENCOUNTER 2024-05-21 13:55 | Outpatient (REF) | payer MEDICARE, SELFPAY ==
--- OUTSIDE RECORDS SUMMARY | 2024-05-21 15:18 | XMS_ITS ---
[facility] Address [address] [place] [address] Care Team Providers Care Formula Checker Name Role Phone Arnaldo Archer Primary Care [...] Ubrelvy 100 MG TAKE 1 TABLET BY ALONG WITH 2 IBUPROFEN AT ONSET OF [...] 08/29/2023 Encounters Encounter Location Date [facility] [address] [place] [address] 08/29/2023 Arnaldo Archer Chronic migraine wit hout [...] Notes * Samuel SPARKSDOB:1954 (69 yo M)Acc No.[id number]:08/29/2023 Progress Notes Patient:?Samuel SPARKS Provider:?Arnaldo Archer MD :1955???Age:68 Y???Sex:Male Francisco e:08/29/2023 Address:[address] [place] [address], [facility] Subjective: * Chief Complaints: * ??? * Medical History:? * Medications:?Taking traZODon e HCl 100 MG Tablet 1 tablet at [...] day , stop date 09/12/2023 Objective: * Vitals:?BP:120/80mm Hg, HR:7 0/min, Wt:170.4lbs, Wt-k.29 kg, Ht: 69 in, BMI:25.16Index, Body Surface Area: 1.94. Assessment: * Assessment: 1.?Chronic migraine without aura, intractable, without status migrainosus - G43.719 (Primary)??? Plan: * Treatment: * Follow Up:?2 Months * Billing Information: * Visit Code:? 54474 OFFICE VISIT,EST PT,LEVEL 4. * Procedure Codes:? * Electronic signature of Franco Archer MD on 05/21/2024 at 03:18 PM EST Sign off status: Pending * Provider:?Arnaldo Archer MD Date:?08/18 Generated for Rachelle guzman/Yannick/eTransmitting on:?05/21/2024 03:18 PM EST
--- OUTSIDE RECORDS SUMMARY | 2024-05-21 15:18 | XMS_ITS ---
[facility] Organization [facility] Address [address] [place] [address] Care Team Providers Care Automotive Sales Professional Name Role Phone Arnaldo Archer Primary Care [...] Encounter Location Date Provider Diagnosis [facility] [address] [place] [address] 10/31/2023 Arnaldo Archer Chronic migraine wit hout aura, intractable, without status migrainosus G43.719 Assessments Encounter Date Diagnosis (ICD Code) Assessment Notes Treatment Notes Treatment Clinical Notes Section Notes 10/31/2023 Chronic migraine without aura, intractable, without status migrainosus (ICD-10 - G43.719) Plan Of Treatment No Information Progress Notes * Samuel SPARSKDOB:1954 (69 yo M)Acc No.[id number]:10/31/2023 Progress Notes Patient:?Samuel SPARKS Provider:?Arnaldo Archer MD :1955???Age:68 Y???Sex:Male Francisco e:10/31/2023 Address:[address] [place] [address], [facility] Subjective: * Chief Complaints: * ??? * Medical History:? * Medications:?Taking Cialis 1 0 MG Tablet 1 tablet Orally Once a [...] and allow to dissolve Orally Objective: * Vitals:?BP:135/85mm Hg, HR:6 5/min, Wt:166.5lbs, Wt-k.52 kg, Ht: 69 in, BMI:24.59Index, Body Surface Area: 1.92. Assessment: * Assessment: 1.?Chronic migraine without aura, intractable, without status migrainosus - G43.719 (Primary)??? Plan: * Treatment: * Billing Information: * Visit Code:? 05162 OFFICE VISIT,EST PT,LEVEL 4. * Procedure Codes:? * Electronic signature of Franco Archer MD on 05/21/2024 at 03:18 PM EST Sign off status: Pending * Provider:?Arnaldo Archer MD Date:?10/18 Generated for Rachelle guzman/Yannick/eTalexismitting on:?05/21/2024 03:18 PM EST
--- OUTSIDE RECORDS SUMMARY | 2024-05-21 15:19 | XMS_ITS ---
Author Organization [facility] Address [address] [facility] [place] [address] Care Team Providers Care Bulk Sealer Name Role Phone Nawaf Willams MD Primary Care Provider UnavailClaudia Salgado [phone] REASON FOR VISIT Formula 7 Encounters Encounter Location Date Provider Diagnosis [address] [place] [address] 04/22/2023 Claudia Osei Plan Of Treatment No Information Progress Notes * Samuel SPARKS TDOB:[birth year] (68 yo M)Acc No.[id number]:04/22/2023 Patient:?Samuel Sparks :1955???Age:68 Y???Sex:Male Address:[address] [place], [place] [address] [address] * true * Date:? Generated for Rachelle guzman/Yannick/eTransmitting on:?05/21/2024 03:18 PM EST
--- OUTSIDE RECORDS SUMMARY | 2024-05-21 15:19 | XMS_ITS | Patient Health Record ---
Author Organization [facility] [place] Address [address] [facility] [place] [address] Care Team Providers Care Scientific Informatics Project Leader Name Role Phone Nawaf Willams MD Primary Care Provider Claudia Griffin Unavailable [phone] Allergies No Known Allergies Reason For Referral No Information Medications Medication SIG (Take, Route, Frequency, Duration) Notes Start Date End Date Status Topamax 50 MG 1 tablet Orally Once a day Active tiZANidine HCl 2 MG 1 tablet as needed O rally Three times a day Active traZODone HCl 100 MG 1 tablet at bedtime Orally Once a day Active Dexilant 60 MG 1 capsule Orally Onc e a day Active Cymbalta 30 MG 1 capsule Orally Onc e a day for 30 day(s) 02/15/2023 Active Sildenafil Citrate 100 MG 1 tablet as ne eded Orally Once a day Active Relpax 40 MG 1 tablet Orally Once a day Active Nortriptyline HCl Ac tive Social History Tobacco Use: Social History Observation Description Date Details (start date - stop date) Never Smoker NA - NA Tobacco Use/Smoking Question Answer Notes Are you a: nonsmoker Additional Findings: Tobacco Non-User Current no n-smoker Alcohol Screen Question Answer Notes Did you have a drink contain ing alcohol in the past year? Yes How often did you have a dri nk containing alcohol in the past year? 2 to 3 times a week (3 points) Points 3 Interpretation Negative Tobacco use other than smoking: Question Answer Notes Are you an other tobacco user? No Encounters Encounter Location Date Provider Diagnosis [facility] [address] [place] [address] 01/22/2024 Claudia Farnaz Plan Of Treatment No Information Insurance Providers Payer Name Payer Address Payer Phone Subscriber Number Group Number Insured Name Patient Relationship to Insured Coverage Start Date Coverage End Date [facility] [address] [place] [address] [id number] Samuel Mcdonnell Self - patient is the insured 3 [employer] [address] [facility] [place] [address] [id number] Samuel Mcdonnell Self - patient is the insured 3 Medical (General) History Medical History History ICD Code Anxiety CAD (Cholesterol) covid-19 Headaches Stomach ulcer Joint implants/screws Surgical History Surgery Date(Month/Year) tendon 2012 & 2022
--- OUTSIDE RECORDS SUMMARY | 2024-05-21 15:19 | XMS_ITS ---
[facility] Address [address] [facility] [place] [address] Care Team Providers Care Revenue Integrity Analyst Name Role Phone Imer SYLVESTER, Nawaf Primary Care Provider Claudia Griffin [phone] REASON FOR VISIT r/s for sooner apt Encounters Encounter Location Date Provider Diagnosis [facility] [address] [place] [address] 03/12/2023 Claudia Osei Plan Of Treatment No Information Progress Notes * Samuel SPARKS TDOB:[birth year] (69 yo M)Acc No.[id number]:03/12/2023 Progress Notes Patient:?Samuel SPARKS Provider:?Claudia Osei DPM :1955???Age:68 Y???Sex:Male Francisco e:03/12/2023 Address:[address] [place] [address], [id number] Pcp:Nawaf Willams MD Subjective: * Chief Complaints: * ???1. R/s for sooner apt. * Medical History:? Objective: * Vitals:? Assessment: Plan: * Treatment: * Images: * The named appointment provid er may or may not be the originator of this progress note, and it is not deemed complete until electronically signed by the appointment provider. Sign off status: Pending * Provider:?Claudia Osei DPM Date:? Generated for Rachelle guzman/Yannick/Ortega on:?05/21/2024 03:19 PM EST
--- OUTSIDE RECORDS SUMMARY | 2024-05-21 15:19 | XMS_ITS ---
Author Organization [facility] Address [address] [facility] [place] [address] Care Team Providers Care Vehicle Assembler Name Role Phone Nawaf Willams MD Primary Care Provider Unavaila Claudia Queen Unavailable [phone] REASON FOR VISIT BUY Formula 7 Encounters Encounter Location Date Provider Diagnosis [address] [place] [address] 01/22/2024 Claudia Osei Plan Of Treatment No Information Progress Notes * Samuel SPARKS TDOB:[birth year] (69 yo M)Acc No.[id number]:01/22/2024 Patient:?Samuel Sparks :1955???Age:69 Y???Sex:Male Address:[address] [place], [place] [address] [address] * Addendum: * ? true * Date:? Generated for Rachelle guzman/Yannick/eTransmitting on:?05/21/2024 03:18 PM EST
--- OUTSIDE RECORDS SUMMARY | 2024-05-21 15:19 | XMS_ITS | Patient Health Record ---
Author Organization [facility] Address [address] [place] [address] Care Team Providers Care Acid Polymerization Operator Name Role Phone Arnaldo Archer Primary Care Provider Nawaf Willams Unavailable Unavailable Slime Churchill Unavailable [phone] Allergies No Known Allergies Reason For Referral No Information Medications Medication SIG (Take, Route, Frequency, Duration) Notes Start Date End Date Status Cialis 10 MG 1 tablet Orally Once a day 10/31/[address] 30 MG CAP 60 1 qam 04/28/2020 Not-Taking Nurtec 75 MG 1 tablet on the [...] if migraine recurs. for 30 days Active GLUCOSAMINE-CHONDROITIN LIQ 1,500-1,200 MG/30 ML 0 1 qhs for 30 04/28/2020 A ctive ring relief 0 1 qhs for tinnitus for 30 04/28/2020 Active traZODone HCl 100 MG 1 tablet at bedtime Orally Once a day Active DEXILANT DR 60 MG CAPSULE 0 1 qam for 30 0 Active Ubrelvy 100 MG TAKE 1 TABLET BY SOURAV ALONG WITH 2 IBUPROFEN AT ONSET OF MIGRAINE. MAY REPEAT 1 TIME AFTER 2 HOURS IF HEADACHE RETURNS for 90 days Active Problems Problem Type SNOMED Code ICD Code Onset Dates Problem Status W/U Status Risk Notes Problem Chronic migraine without aura, non-intractable (270515560050342 ) Chronic migraine without aura, not intractable, without status migrainosus (G43.709) Active confirmed Problem Chronic intractable migraine without aura (340960861751309 ) Chronic migraine without aura, intractable, with status migrainosus (G43.711) Active confirmed Problem Chronic intractable migraine without aura (089841395548605 ) Chronic migraine without aura, intractable, without status migrainosus (G43.719) Active confirmed Vital Signs Heart Rate 65 /min 10/31/2023 Blood pressure diastolic 85 mm Hg 10/31/2023 Weight-kg 75.52 kg 10/31/2023 Height 69 in 10/31/2023 Blood pressure systolic 135 mm Hg 10/31/2023 Weight 166.5 lbs 10/31/2023 BMI 24.59 kg/m2 10/31/2023 Encounters Encounter Location Date Provider Diagnosis [facility] [address] [place] [phone] 08/29/2023 Arnaldo Archer Chronic migraine wit hout aura, intractable, without status migrainosus G43.719 [facility] [address] [place] [phone] 10/31/2023 Arnaldo Archer Chronic migraine wit hout aura, intractable, without status migrainosus G43.719 [facility] [address] [place] [phone] 05/29/2023 Slime [place] Chronic migraine wit hout aura, intractable, without status migrainosus G43.719 [facility] [address] [place] [phone] 05/27/2023 Arnaldo Archer [facility] [address] [place] [phone] 02/13/2024 Arnaldo Archer Chronic migraine wit h aura, intractable, without status migrainosus G43.E19 Assessments Encounter Date Diagnosis (ICD Code) Assessment Notes Treatment Notes Treatment Clinical Notes Section Notes 05/29/2023 Chronic migraine without aura, intractable, without status migrainosus (ICD-10 - G43.719) Continue current medications as prescribed. Patient will resume Qulipta daily fo prevention. We will evaluate headache journals for efficacy at next visit. Follow up in 3 months or sooner as needed. Patient agrees with plan. All questions and concerns addressed. Patient instructed to maintain headache logs. Patient advised to contact office for any change in headache pattern, increase in frequency, duration, or severity of headaches. Medication reconciliation completed. Previous office visit note reviewed. 08/29/2023 Chronic migraine without aura, intractable, without status migrainosus (ICD-10 - G43.719) 10/31/2023 Chronic migraine without aura, intractable, without status migrainosus (ICD-10 - G43.719) 02/13/2024 Chronic migraine with aura, intractable, without status migrainosus (ICD-10 - G43.E19) Plan Of Treatment No Information Insurance Providers Payer Name Payer Address Payer Phone Subscriber Number Group Number Insured Name Patient Relationship to Insured Coverage Start Date Coverage End Date [facility] [address] [place], [place] [id number] Samuel Mcdonnell Self - patient is the insured 4 Medical (General) History Medical History History ICD Code Headaches Anxiety GERD GI bleed Erectile Dysfunction Sleep disturbance HLD Tinnitus Surgical History Surgery Date(Month/Year) left elbow surgery appendectomy Bilat elbow surgery 12/11/22 Hospitalization History Reason Date(Month/Year) Stitches L hand Broken left hand 09/2022
[2024-05-21 16:49] LABS: Prostate Specific Antigen 3.73 ng/mL (<0.05-4.0)
[2024-05-21 16:50] LABS: TSH reflex Free T4 0.99 uIU/mL (0.32-4.0)
[2024-05-22 20:13] LABS: Sex Hormone Binding Globulin 92 nmol/L (22-77)
[2024-05-22 20:24] LABS: Follicle Stimulating Hormone 26.4 mIU/mL (1.4-12.8); Lutenizing Hormone 38.6 mIU/mL (1.6-15.2)
[2024-05-25 03:39] LABS: Estradiol Ultra Sensitive 12 pg/mL (< OR = 29)
[2024-05-28 16:48] LABS: Testosterone, Free 18.1 pg/mL (35.0-155.0); Testosterone, Total 255 ng/dL (250-1100)
== END 2024-05-21 13:56 | disposition home or self-care (01) ==
LOC: HO.HMGCLDS 13:55
PROVIDERS: PCP Internal Medicine; Visit Provider Urology
DX: E29.1 Testicular hypofunction (principal); N52.9 Male erectile dysfunction, unspecified; R97.20 Elevated prostate specific antigen [PSA]; Z12.5 Encounter for screening for malignant neoplasm of prostate
CPT/HCPCS: 36415; 82670; 83001; 83002; 84153; 84270; 84402; 84403; 84443

== ENCOUNTER 2024-05-29 09:59 | Outpatient (AMB) | payer MEDICARE, SELFPAY ==
--- OUTSIDE RECORDS SUMMARY | 2024-05-29 10:09 | XMS_ITS ---
[facility] Organization [facility] Address [address] [place] [address] Care Team Providers Care Wet Process Assistant Head Miller Name Role Phone Arnaldo Archer Primary Care [...] 08/29/2023 Encounters Encounter Location Date [facility] [address] [place] [address] 08/29/2023 Arnaldo Archer Chronic migraine wit hout [...] Notes * Samuel SPARKSDOB:1954 (69 yo M)Acc No.[id number]:08/29/2023 Progress Notes Patient:?Samuel SPARKS Provider:?Arnaldo Archer MD :1955???Age:68 Y???Sex:Male Francisco e:08/29/2023 Address:[address] [place] [address], [facility] Subjective: * Chief Complaints: * ??? * [...] Months * Billing Information: * Visit Code:? 37786 OFFICE VISIT,EST PT,LEVEL 4. * Procedure Codes:? * Electronic signature of Franco Archer MD on 05/29/2024 at 10:09 AM EST Sign off status: Pending * Provider:?Arnaldo Archer MD Date:?08/18 Generated for Rachelle guzman/Yannick/eTransmitting on:?05/29/2024 10:09 AM EST
--- OUTSIDE RECORDS SUMMARY | 2024-05-29 10:09 | XMS_ITS ---
Author Organization [facility] Address [address] [place] [address] Care Team Providers Care Engraver Steel Plate Name Role Phone Arnaldo Archer Primary Care Provider Nawaf Willams Unavailable Unavailable Medications Medication SIG (Take, Route, Fr equency, Duration) Notes Start Date End Date Status Ubrelvy 100 MG TAKE 1 TABLET BY SOURAV TH ALONG WITH 2 IBUPROFEN AT ONSET OF MIGRAINE. MAY REPEAT 1 TIME AFTER 2 HOURS IF HEADACHE RETURNS for 90 days Act david Encounters Encounter Location Date Provider Diagnosis [facility] [address] [place] [phone] 02/13/2024 Arnaldo Archer Chronic migraine wit h aura, intractable, without status migrainosus G43.E19 Assessments Encounter Date Diagnosis (ICD Code) Assessment Notes Treatment Notes Treatment Clinical Notes Section Notes 02/13/2024 Chronic migraine with aura, intractable, without status migrainosus (ICD-10 - G43.E19) Plan Of Treatment Medication Medication Name Sig Start Date Stop Date Notes Ubrelvy 100 MG TAKE 1 TABLET BY SOURAV TH ALONG WITH 2 IBUPROFEN AT ONSET OF MIGRAINE. MAY REPEAT 1 TIME AFTER 2 HOURS IF HEADACHE RETURNS for 90 days Progress Notes * Samuel SPARKSDOB:1954 (69 yo M)Acc No.[id number]:02/13/2024 Patient:?Samuel SPARKS :1955???Age:69 Y???Sex:Male Address:[address] [place] [address], [facility] [place], [address] * Refills? Refill Ubrelvy Tablet, 100 MG, 48 Tablet, TAKE 1 TABLET BY MOUTH ALONG WITH 2 IBUPROFEN AT ONSET OF MIGRAINE. MAY REPEAT 1 TIME AFTER 2 HOURS IF HEADACHE RETURNS, 90 days, Refills=3 * true * Date:? Generated for Rachelle guzman/Yannick/Justineitting on:?05/29/2024 10:09 AM EST
--- OUTSIDE RECORDS SUMMARY | 2024-05-29 10:09 | XMS_ITS ---
Author Organization [facility] Address [address] [place] [address] Care Team Providers Care Audit Machine Operator Name Role Phone Arnaldo Archer Primary [...] Encounter Location Date Provider Diagnosis [facility] [address] [place] [address] 10/31/2023 Arnaldo Archer Chronic migraine wit hout aura, intractable, without status migrainosus G43.719 Assessments Encounter Date Diagnosis (ICD Code) Assessment Notes Treatment Notes Treatment Clinical Notes Section Notes 10/31/2023 Chronic migraine without aura, intractable, without status migrainosus (ICD-10 - G43.719) Plan Of Treatment No Information Progress Notes * Samuel SPARKSDOB:1954 (69 yo M)Acc No.[id number]:10/31/2023 Progress Notes Patient:?Samuel SPARKS Provider:?Arnaldo Archer MD :1955???Age:68 Y???Sex:Male Francisco e:10/31/2023 Address:[address] [place] [address], [facility] Subjective: * Chief Complaints: * ??? * [...] Treatment: * Billing Information: * Visit Code:? 77410 OFFICE VISIT,EST PT,LEVEL 4. * Procedure Codes:? * Electronic signature of Franco Archer MD on 05/29/2024 at 10:09 AM EST Sign off status: Pending * Provider:?Arnaldo Archer MD Date:?10/18 Generated for Rachelle guzman/Yannick/eTalexismitting on:?05/29/2024 10:09 AM EST
--- OUTSIDE RECORDS SUMMARY | 2024-05-29 10:10 | XMS_ITS | Patient Health Record ---
Author Organization [facility] Keagan clari Champlain Address [address] [place] [address] Care Team Providers Care High School Social Science Teacher Name Role Phone Nawaf Willams MD Primary Care Provider Claudia Griffin Unavailable [phone] Allergies No Known Allergies Reason For Referral [...] No Encounters Encounter Location Date Provider Diagnosis [facility] [address] [place] [address] 01/22/2024 Claudia Farnaz Plan Of Treatment No Information Insurance Providers Payer Name Payer Address Payer Phone Subscriber Number Group Number Insured Name Patient Relationship to Insured Coverage Start Date Coverage End Date [facility] [address] [place] [address] [phone] [id number] Samuel Mcdonnell Self - patient is the insured 3 [employer] [address] [place] [address] [id number] Samuel Mcdonnell Self - patient is the insured 3 Medical (General) History Medical History History ICD Code Anxiety CAD (Cholesterol) covid-19 Headaches Stomach ulcer Joint implants/screws Surgical History Surgery Date(Month/Year) tendon 2012 & 2022
--- OUTSIDE RECORDS SUMMARY | 2024-05-29 10:10 | XMS_ITS ---
Author Organization [facility] Priyasai Mccainley Address [address] [facility] [place] [address] Care Team Providers Care Talent Recruiter Name Role Phone Nawaf Willams MD Primary Care Provider Unavaila Claudia Queen [phone] REASON FOR VISIT BUY Formula 7 Encounters Encounter Location Date Provider Diagnosis [address] [place] [address] 01/22/2024 Claudia Osei Plan Of Treatment No Information Progress Notes * Samuel SPARKS TDOB:[birth year] (69 yo M)Acc No.[id number]:01/22/2024 Patient:?Samuel Sparks :1955???Age:69 Y???Sex:Male Address:[address] [place], [place] [address] [address] * Addendum: * ? true * Date:? Generated for Rachelle guzman/Yannick/eTransmitting on:?05/29/2024 10:09 AM EST
--- OUTSIDE RECORDS SUMMARY | 2024-05-29 10:10 | XMS_ITS ---
[facility] Address [address] [facility] [place] [address] Care Team Providers Care Appliance Service Representative Name Role Phone Imer SYLVESTER, Nawaf Primary Care Provider Claudia Griffin [phone] REASON FOR VISIT r/s for sooner apt Encounters Encounter Location Date Provider Diagnosis [facility] [address] [place] [address] 03/12/2023 Claudia Osei Plan Of Treatment No Information Progress Notes * Samuel SPARKS TDOB:[birth year] (69 yo M)Acc No.[id number]:03/12/2023 Progress Notes Patient:?Samuel SPARKS Provider:?Claudia Osei DPM :1955???Age:68 Y???Sex:Male Francisco e:03/12/2023 Address:[address] [place] [address], [place] Pcp:Nawaf Willams MD Subjective: * Chief Complaints: [...] Osei DPM Date:? Generated for Rachelle guzman/Yannick/Ortega on:?05/29/2024 10:09 AM EST
--- OUTSIDE RECORDS SUMMARY | 2024-05-29 10:10 | XMS_ITS | Patient Health Record ---
Author Organization [facility] Address [address] [place] [address] Care Team Providers Care Drying And Winding Supervisor Name Role Phone Arnaldo Archer Primary Care Provider [phone] Nawaf Willams Unavailable Unavailable Slime Churchill Unavailable [phone] Allergies No Known Allergies Reason For Referral [...] Notes Problem Chronic migraine without aura, non-intractable (677587084995583 ) Chronic migraine without aura, not intractable, without status migrainosus (G43.709) Active confirmed Problem Chronic intractable migraine without aura (500121127214121 ) Chronic migraine without aura, intractable, with status migrainosus (G43.711) Active confirmed Problem Chronic intractable migraine without aura (683116631320718 ) Chronic migraine without aura, intractable, without status migrainosus (G43.719) Active confirmed Vital Signs Heart Rate 65 /min 10/31/2023 Blood pressure diastolic 85 mm Hg 10/31/2023 Weight-kg 75.52 kg 10/31/2023 Height 69 in 10/31/2023 Blood pressure systolic 135 mm Hg 10/31/2023 Weight 166.5 lbs 10/31/2023 BMI 24.59 kg/m2 10/31/2023 Encounters Encounter Location Date [facility] [address] [place] [phone] 08/29/2023 Arnaldo Méndezley Chronic migraine wit hout aura, intractable, without status migrainosus G43.719 [facility] [address] [place] [address] 10/31/2023 Arnaldo Archer Chronic migraine wit hout aura, intractable, without status migrainosus G43.719 [facility] [address] [place] [address] 05/29/2023 Slime Estelline Chronic migraine wit hout aura, intractable, without status migrainosus G43.719 [facility] [address] [place] [phone] 02/13/2024 Arnaldo Archer Chronic migraine wit h [...] Insured Coverage Start Date Coverage End Date [facility] [address] [place] [id number] Samuel Mcdonnell Self - patient is the insured 4 Medical (General) History Medical History History ICD Code Headaches Anxiety GERD GI bleed Erectile Dysfunction Sleep disturbance HLD Tinnitus Surgical History Surgery Date(Month/Year) left elbow surgery appendectomy Bilat elbow surgery 12/11/22 Hospitalization History Reason Date(Month/Year) Stitches L hand Broken left hand 09/2022
--- OUTSIDE RECORDS SUMMARY | 2024-05-29 10:10 | XMS_ITS ---
Author Organization [facility] [place] Address [address] [facility] [place] [address] Care Team Providers Care Reserve Operator Name Role Phone Nawaf Willams MD Primary Care Provider UnavailClaudia Salgado [phone] REASON FOR VISIT Formula 7 Encounters Encounter Location Date Provider Diagnosis [address] [place] [address] 04/22/2023 Claudia Osei Plan Of Treatment No Information Progress Notes * Samuel SPARKS TDOB:[birth year] (68 yo M)Acc No.[id number]:04/22/2023 Patient:?Samuel Sparks :1955???Age:68 Y???Sex:Male Address:[address] [place], [place] [address] [address] * true * Date:? Generated for Rachelle guzman/Yannick/eTransmitting on:?05/29/2024 10:09 AM EST
--- NOTE | 2024-05-29 10:12 | MHC.OFFVIS ---
Intake Visit Reasons: Labs(Pending) Intake Note: Pt presents to the office today for a 3 month follow up labs. Allergies No Known Allergies Allergy (Verified 05/29/24 10:12) HPI Comments Details: Samuel is a pleasant male. He is a patient of Dr. Willams. He is referred for the following urologic conditions - elevated PSA - erectile dysfunction - hot flashes Two month follow-up Repeat lab work shows borderline to low total testosterone Low free testosterone Elevated FSH and LH consistent with testicular failure Suggest initiating testosterone Prescription provided Stable PSA GLORIA normal Effective voiding parameters with good emptying and stream PCPT 6% high risk - at threshold for MRI/biopsy Erectile dysfunction Progressive - Has been on SSRIs Noted to have hot flashes 03:00 in the morning Trial daily tadalafil with three-month follow-up testosterone and estrogen labs - Neurologist called william - sarai Elevated PSA Reports prior PSA had been upper end normal range Minimal issues with urination GLORIA normal No family history prostate cancer Has been given instructions optimized PSA testing PSA 03/09 3.9, 10/08 3.6, 10/09 3.6, 08/10 4.1, 02/10 T 367 F 19 Repeat in 12 months [facility] Medical History Generalized anxiety disorder Dysthymia (or depressive neurosis) History of GI bleed Chronic headache disorder Social History Current occupational status: employed 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 Review of Systems Const Denies chills and Denies fever(s) Card Reports no additional complaints and Denies syncope Resp Denies cough GI Denies abdominal pain and Denies heartburn Reports as per HPI and Denies change in libido Neuro Denies syncope Psych Denies change in libido Endo Denies change in libido Physical Exam Const General: cooperative, healthy appearing, comfortable and no acute distress Orientation/consciousness: patient oriented x3 HEENT Face and sinus: Yes normal facial exam Mouth: moist mucous membranes Neck Neck: Yes normal visual inspection, Yes full ROM and Yes trachea midline Chest Chest palpation & inspection: normal inspection of the chest Resp Effort & Inspection: normal respiratory effort, able to speak in complete sentences and no respiratory distress GI Inspection: Yes normal to inspection Back/Spine/Pelvis Cervical Spine: normal cervical lordosis Thoracic/Lumbar Spine: thoracic and lumbar spine normal to inspection Skin General skin exam: no rashes or lesions noted Neuro General: patient oriented x3, gait normal, tone normal and moves all extremities Extrem General: Yes normal to inspection and Yes capillary refill normal Assessment & Plan Assessment & Plan (1) Hypogonadism in male: Code(s): E29.1 - Testicular hypofunction Category: Medical (2) Acquired testicular failure: Code(s): E29.1 - Testicular hypofunction Category: Medical Plan Trial testosterone replacement Orders: Orders Testosterone, Total 3 Months E29.1 - Testicular hypofunction Medications: New testosterone Apply to shoulder and rub in until dry 1 packet transdermal DAILY 30 days 150 grams 5RF E29.1 - Testicular hypofunction Patient Instructions: Imaging studies, laboratory and physical exam results were discussed and reviewed in detail. No major barriers to patient understanding were identified. An opportunity to ask questions regarding the treatment plan was provided. All questions were answered. The patient expressed understanding and agreement with the above treatment plan. The patient is aware they should contact our office by phone for worsening of their current condition or the appearance of new urologic symptoms. Compliance is encouraged with any medications and followup testing that is ordered. It is a privilege to participate in the urologic care of your patient. If you have any questions or concerns regarding treatment for the above conditions, or other urologic issues, please do not hesitate to contact me. The office telephone contact is [phone]. This note is constructed using voice recognition software. While every effort has been made to ensure accuracy cooker cleaner errors may have been included. Yours sincerely, Dr Johnny White MD, [facility] - Urology Providers of Expert, Compassionate Care for the Genitourinary System Coding Level of Care Code Est Pt Level 4 (49272) Diagnoses Hypogonadism in male E29.1 Acquired testicular failure E29.1
== END 2024-05-29 10:33 | disposition home or self-care (01) ==
PROVIDERS: PCP Internal Medicine; Visit Provider Urology
DX: E29.1 Testicular hypofunction (principal)
CPT/HCPCS: 99214

== ENCOUNTER → 2024-05-29 09:59 | Outpatient (BNVA) | payer MEDICARE, SELFPAY | PROVIDERS: PCP Internal Medicine; Visit Provider Urology | DX: E29.1 Testicular hypofunction (principal) | CPT/HCPCS: 99212 ==

== ENCOUNTER 2024-08-04 11:45 | Outpatient (AMB) | payer MEDICARE, SELFPAY ==
--- NOTE | 2024-08-04 12:12 | A.OFFPSYCH_ITS ---
Intake Intake Visit Reasons: DEPRESSION Allergies No Known Allergies Allergy (Verified 05/29/24 10:12) Medication List - Last Reconciled 08/09/24 by Ricky Meraz MD atorvastatin 10 mg PO DAILY dexlansoprazole (Dexilant) 60 mg PO DAILY duloxetine 60 mg PO DAILY ketoconazole 2% 1 appl topical lidocaine 5% 1 patch topical DAILY nortriptyline 10 mg PO BID tacrolimus 0.1% 1 appl topical BID tadalafil 10 mg PO DAILY 90 days testosterone 1 packet transdermal DAILY 30 days tizanidine 2 mg PO DAILY topiramate 50 mg PO DAILY trazodone 100 mg PO BEDTIME ubrogepant (Ubrelvy) mg PO HPI- Psychiatric Chief Complaint: DEPRESSION HPI Narrative: Pt seen in f/u mood flat brother had foot eventually removed sec to diabetes the patient generally has been doing okay chronic low-level dysthymia chronic intermittent headaches this has been longstanding problem. He is looking again at doing some Botox injections. 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 No new medical concerns he continues on Cymbalta 60 mg daily does get nortriptyline 10 b.i.d. from his headache neurologist no complaints of side effects Past Psychiatric History: hyx chronic anxiety and depression Mental Status Exam Mental Status Exam Narrative: Mental Status Exam Narrative: Appearance: Casually dressed Behavior: Cooperative appropriate psychomotor: Within normal limits Speech: Normal volume and prosody Thought proccess logical and goal-directed Thought content: Future oriented focused on issues with his work possibly cutting back issues regarding to having chronic headache This continues some concerns about slowing down Mood: Some anxiety mild dysphoria Affect: Appropriate to mood full affect SI:denies HI:denies VH/AH:none Delusions: None Insight/judgment: Good insight and judgment patient knows that he needs to maintain some structure would have difficulty with full shelter discontinues to be true ongoing Memory/cog: Intact Assessment and Plan Assessment & Plan (1) Dysthymia (or depressive neurosis): Status: Acute Code(s): F34.1 - Dysthymic disorder (2) Generalized anxiety disorder: Status: Acute Code(s): F41.1 - Generalized anxiety disorder (3) Chronic headache disorder: Status: Acute Code(s): R51.9 - Headache, unspecified; G89.29 - Other chronic pain Plan Continue plan of care no change indicated at this time patient stable on Cymbalta 60 mg trazodone at HS does not feel overly sedated in the morning Medications: New duloxetine 60 mg PO DAILY 90 caps 1RF Refilled trazodone 100 mg PO BEDTIME 90 tabs 1RF Counseling and coordination of Care Details-Self Mgmt counseling: Discussed issues related to work dealing with chronic headache issues related to transition Medication management counseling: Effectiveness, Side effects and Dosing range Diagnosis and Prognosis Counseling: Impact of diagnosis on life functions and Adequacy of current interventions Details: I spent [] minutes reviewing the record, seeing the patient and documenting in the medical record. Counseling provided to the patient/caregiver as outlined below. Addressed patient/caregiver concerns regarding current medication regime including effective adherence. Addressed patient/caregiver concerns regarding diagnosis and prognosis including accuracy of diagnosis, prognosis over time, impact of diagnosis. Addressed patient/caregiver concerns regarding impact of recent stressors. 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
--- OUTSIDE RECORDS SUMMARY | 2024-08-04 14:13 | XMS_ITS ---
Author Organization [facility] Keagan clari MccainIdeal Address [address] [place] [address] Care Team Providers Care Teacher Education Instructor Name Role Phone Nawaf Willams MD Primary Care Provider Unavaila Claudia Queen [phone] REASON FOR VISIT BUY Formula 7 Encounters Encounter Location Date Provider Diagnosis [address] [place] [address] 07/31/2024 Claudia Osei Plan Of Treatment No Information Progress Notes * Samuel SPARKS TDOB:[birth year] (69 yo M)Acc No.[id number]:07/31/2024 Patient:?Samuel SPARKS :1955???Age:69 Y???Sex:Male Address:[address] [place], [place] [address] [address] * true * Date:? Generated for Rachelle guzman/Yannick/eTransmitting on:?08/04/2024 02:13 PM EDT
--- OUTSIDE RECORDS SUMMARY | 2024-08-04 14:13 | XMS_ITS | Patient Health Record ---
Author Organization [facility] Keagan [place] Address [address] [place] [address] Care Team Providers Care Communications Technologist Name Role Phone Nawaf Willams MD Primary Care Provider Claudia Griffin Unavailable [phone] Allergies No Known Allergies Reason For Referral No Information Medications Medication SIG (Take, Route, Frequency, Duration) Notes Start Date End Date Status Dexilant 60 MG 1 capsule Orally Onc e a day Active Cymbalta 30 MG 1 capsule Orally Onc e a day for 30 day(s) 02/15/2023 Active Sildenafil Citrate 100 MG 1 tablet as ne eded Orally Once a day Active Relpax 40 MG 1 tablet Orally Once a day Active traZODone HCl 100 MG 1 tablet at bedtime Orally Once a day Active Topamax 50 MG 1 tablet Orally Once a day Active Nortriptyline HCl Ac tive tiZANidine HCl 2 MG 1 tablet as needed O rally Three times a day Active Testosterone Active Social History Tobacco Use: Social History Observation [...] Are you an other tobacco user? No Vital Signs Blood pressure diastolic 78 mm Hg 07/31/2024 Height 5ft9in in 07/31/2024 Blood pressure systolic 120 mm Hg 07/31/2024 Weight 172 lbs 07/31/2024 BMI 25.4 kg/m2 07/31/2024 Encounters Encounter Location Date Provider Diagnosis [address] [address] 07/31/2024 Claudia Osei Ingrown nail L60.0 ; Fungal infection of nail B35.1 ; Pain in toe of left foot M79.675 and Pain in toe of right foot M79.[address] [address] 01/22/2024 Claudia Osei [address] [address] 07/31/2024 Claudia Osei Assessments Encounter Date Diagnosis (ICD Code) Assessment Notes Treatment Notes Treatment Clinical Notes Section Notes 07/31/2024 Ingrown nail (ICD-10 - L60.0) 07/31/2024 Fungal infection of nail (ICD-10 - B35.1) 07/31/2024 Pain in toe of left foot (ICD-10 - M79.675) 07/31/2024 Pain in toe of right foot (ICD-10 - M79.674) Plan Of Treatment No Information Insurance Providers Payer Name Payer Address Payer Phone Subscriber Number Group Number Insured Name Patient Relationship to Insured Coverage Start Date Coverage End Date [facility] [address] [place] [address] [id number] Samuel Mcdonnell Self - patient is the insured 3 [employer] [address] [place] [address] [id number] Samuel Mcdonnell Self - patient is the insured 3 Medical (General) History Medical History History ICD Code Anxiety CAD (Cholesterol) covid-19 Headaches Stomach ulcer Joint implants/screws Surgical History Surgery Date(Month/Year) tendon 2012 & 2022
--- OUTSIDE RECORDS SUMMARY | 2024-08-04 14:13 | XMS_ITS | Clinical Summary ---
Author Organization [address] [address] Phone Care Team Providers Care Piece Marker Small Arms Name Role Phone Unavailable Primary Care Provider Unavailabl e Social History Tobacco Use Types Packs/Day Years Used Date Smoking Tobacco: Never Assessed Sex and Gender Information Value Date Recorded Sex Assigned at Not on file Legal Sex Male 1:17 PM EDT Gender Identity Not on file Sexual Orientation Not on file Plan of Treatment Health Maintenance Due Date Last Done Comments HIV screening 1970 Hepatitis C screening 1975 Tetanus adult (Td q 10,TDAP once) 1977 Lipid disorder screening 1997 Colon cancer screening, Colonoscopy 2002 Diabetes screening 2002 Shingles vaccine (Shingrix) (1 of 2 - Shingrix (RZV) 2 Dose Standard Series) 2007 Pneumococcal Vaccine (50+ ye ars) (1 of 1 - PCV) 2022 Influenza vaccine 12/19/2023 Covid-19 vaccine series ( - season) 2024 RSV Discussion (1 - 1-dose 7 5+ series) 01/13/2032 Meningococcal Vaccine Aged Out No yaneli jesica eligible based on patient's age to complete this topic
--- OUTSIDE RECORDS SUMMARY | 2024-08-04 14:13 | XMS_ITS | Patient Health Record ---
Author Organization [facility] Address [address] [place] [address] Care Team Providers Care Computer Systems Auditor Name Role Phone Arnaldo Archer Primary Care Provider Nawaf Willams Unavailable Unavailable Allergies No Known Allergies Reason For Referral No Information Medications Medication SIG (Take, Route, Frequency, Duration) Notes Start Date End Date Status Cialis 10 MG 1 tablet Orally Once a day 10/31/[address] 30 MG CAP 60 1 qam 04/28/2020 Not-Taking Nurtec 75 MG 1 tablet on the tongue and allow to dissolve Orally Not-Taking Ubrelvy 100 MG TAKE 1 TABLET BY MOUTH ALONG WITH 2 IBUPROFEN AT ONSET OF MIGRAINE. MAY REPEAT 1 TIME AFTER 2 HOURS IF HEADACHE RETURNS for 90 days 05/29/2025 Active Nortriptyline HCl 10 MG TAKE 2 CAPSULES BY MOUTH AT BEDTIME for 90 days Active Topiramate 50 MG TAKE 1 TABLET BY MOUTH ONCE DAILY for 90 Active VITAMIN D3 1,000 UNIT SOFTGEL 25 [...] 0 1 qam for 30 0 Active Problems Problem Type SNOMED Code ICD Code Onset Dates Problem Status W/U Status Risk Notes Problem Chronic migraine without aura, non-intractable (508405296178842 ) Chronic migraine without aura, not intractable, without status migrainosus (G43.709) Active confirmed Problem Chronic intractable migraine without aura (474928501337190 ) Chronic migraine without aura, intractable, with status migrainosus (G43.711) Active confirmed Problem Chronic intractable migraine without aura (119755606422211 ) Chronic migraine without aura, intractable, without status migrainosus (G43.719) Active confirmed Vital Signs Heart Rate 65 /min 10/31/2023 Blood pressure diastolic 85 mm Hg 10/31/2023 Weight-kg 75.52 kg 10/31/2023 Height 69 in 10/31/2023 Blood pressure systolic 135 mm Hg 10/31/2023 Weight 166.5 lbs 10/31/2023 BMI 24.59 kg/m2 10/31/2023 Encounters Encounter Location Date [email or web address] [address] [place] [address] 08/29/2023 Arnaldo Méndezley Chronic migraine wit hout aura, intractable, without status migrainosus G43.719 [facility]aging[facility] [address] [place] [address] 10/31/2023 Arnaldo Archer Chronic migraine wit hout aura, intractable, without status migrainosus G43.719 [facility] [address] [place] [address] 02/13/2024 Arnaldo Archer Chronic migraine wit h aura, intractable, without status migrainosus G43.E19 [facility] [address] [place] [address] 06/03/2024 Arnaldo Archer Chronic migraine wit h aura, intractable, without status migrainosus G43.E19 Assessments Encounter Date Diagnosis (ICD Code) Assessment Notes Treatment Notes Treatment Clinical Notes Section Notes 08/29/2023 Chronic migraine without aura, intractable, without status migrainosus (ICD-10 - G43.719) 10/31/2023 Chronic migraine without aura, intractable, without status migrainosus (ICD-10 - G43.719) 02/13/2024 Chronic migraine with aura, intractable, without status migrainosus (ICD-10 - G43.E19) 06/03/2024 Chronic migraine with aura, intractable, without status migrainosus (ICD-10 - G43.E19) Plan Of Treatment No Information Insurance Providers Payer Name Payer Address Payer Phone Subscriber Number Group Number Insured Name Patient Relationship to Insured Coverage Start Date Coverage End Date [facility] [address] [place], [place] [id number] Samuel Mcdonnell Self - patient is the insured 4 Medical (General) History Medical History History ICD Code Headaches Anxiety GERD GI bleed Erectile Dysfunction Sleep disturbance HLD Tinnitus Surgical History Surgery Date(Month/Year) left elbow surgery appendectomy Bilat elbow surgery 12/11/22 Hospitalization History Reason Date(Month/Year) Stitches L hand Broken left hand 09/2022
--- OUTSIDE RECORDS SUMMARY | 2024-08-04 14:13 | XMS_ITS ---
Author Organization [facility] Priyasai Mccainley Address [address] [facility] [place] [address] Care Team Providers Care Supervisor Particleboard Name Role Phone Nawaf Willams MD Primary Care Provider Unavaila Claudia Queen [phone] REASON FOR VISIT BUY Formula 7 Encounters Encounter Location Date Provider Diagnosis [facility] [address] [place] [address] 01/22/2024 Claudia Osei Plan Of Treatment No Information Progress Notes * Samuel SPARKS TDOB:[birth year] (69 yo M)Acc No.[id number]:01/22/2024 Patient:?Samuel Sparks :1955???Age:69 Y???Sex:Male Address:[address] [place], [place] [address] [address] * Addendum: * ? true * Date:? Generated for Meccai megan/Yannick/eTransmitting on:?08/04/2024 02:13 PM EDT
--- OUTSIDE RECORDS SUMMARY | 2024-08-04 14:13 | XMS_ITS ---
Author Organization [facility] Address [address] [place] [address] Care Team Providers Care Postpartum Nurse Name Role Phone Arnaldo Archer Primary Care Provider Nawaf Willams Unavailable Unavailable REASON FOR VISIT Refills Medications Medication SIG (Take, Route, Fr equency, Duration) Notes Start Date End Date Status Ubrelvy 100 MG TAKE 1 TABLET BY SOURAV TH ALONG WITH 2 IBUPROFEN AT ONSET OF MIGRAINE. MAY REPEAT 1 TIME AFTER 2 HOURS IF HEADACHE RETURNS for 90 days 05/29/2025 Act david Encounters Encounter Location Date [facility] [address] [place] [phone] 06/03/2024 Arnaldo Archer Chronic migraine wit h aura, intractable, without status migrainosus G43.E19 Assessments Encounter Date Diagnosis (ICD Code) Assessment Notes Treatment Notes Treatment Clinical Notes Section Notes 06/03/2024 Chronic migraine with aura, intractable, without status migrainosus (ICD-10 - G43.E19) Plan Of Treatment Medication Medication Name Sig Start Date Stop Date Notes Ubrelvy 100 MG TAKE 1 TABLET BY SOURAV TH ALONG WITH 2 IBUPROFEN AT ONSET OF MIGRAINE. MAY REPEAT 1 TIME AFTER 2 HOURS IF HEADACHE RETURNS for 90 days 05/29/2025 Progress Notes * Samuel SPARKSDOB:1954 (69 yo M)Acc No.[id number]:06/03/2024 Patient:?Samuel SPARKS :1955???Age:69 Y???Sex:Male Address:[address] [place] [address], [facility] [place], [address] * Refills? Refill Ubrelvy Tablet, 100 MG, 48 Tablet, TAKE 1 TABLET BY MOUTH ALONG WITH 2 IBUPROFEN AT ONSET OF MIGRAINE. MAY REPEAT 1 TIME AFTER 2 HOURS IF HEADACHE RETURNS, 90 days, Refills=3 * true * Date:? Generated for Rachelle guzman/Yannick/Monicasmitting on:?08/04/2024 02:12 PM EDT
--- OUTSIDE RECORDS SUMMARY | 2024-08-04 14:13 | XMS_ITS ---
Author Organization [facility] [place] Address [address] [place] [address] Care Team Providers Care Assessment Director Name Role Phone Nawaf Willams MD Primary Care Provider Claudia Griffin Unavailable [phone] Allergies No Known Allergies REASON FOR VISIT Ingrown Nail, Fungal Nails Medications Medication SIG (Take, Route, Frequency, Duration) Notes Start Date End Date Status Dexilant 60 MG 1 capsule Orally Onc e a day Active Cymbalta 30 MG 1 capsule Orally Onc e a day for 30 day(s) 02/15/2023 Active Sildenafil Citrate 100 MG 1 tablet as ne eded Orally Once a day Active Relpax 40 MG 1 tablet Orally Once a day Active Topamax 50 MG 1 tablet Orally Once a day Active traZODone HCl 100 MG 1 tablet at bedtime Orally Once a day Active Nortriptyline HCl Ac tive tiZANidine HCl 2 MG 1 tablet as needed O rally Three times a day Active Testosterone Active Social History Tobacco Use: Social History Observation Description Date Details (start date - stop date) Never Smoker NA - NA Tobacco Use/Smoking Question Answer Notes Are you a: nonsmoker Additional Findings: Tobacco Non-User Current no n-smoker Tobacco use other than smoking: Question Answer Notes Are you an other tobacco user? No Vital Signs Height 5ft9in in 07/31/2024 Weight 172 lbs 07/31/2024 BMI 25.4 kg/m2 07/31/2024 Blood pressure systolic 120 mm Hg 08/01/19 25 Blood pressure diastolic 78 mm Hg 025 Encounters Encounter Location Date Provider Diagnosis [facility] [address] [place] [address] 07/31/2024 Claudia Farnaz Ingrown nail L60.0 ; Fungal infection of nail B35.1 ; Pain in toe of left foot M79.675 and Pain in toe of right foot M79.674 Assessments Encounter Date Diagnosis (ICD Code) Assessment Notes Treatment Notes Treatment Clinical Notes Section Notes 07/31/2024 Ingrown nail (ICD-10 - L60.0) 07/31/2024 Fungal infection of nail (ICD-10 - B35.1) 07/31/2024 Pain in toe of left foot (ICD-10 - M79.675) 07/31/2024 Pain in toe of right foot (ICD-10 - M79.674) Plan Of Treatment Next Appt Details Follow Up: prn, Reason: Procedure Notes * Category Sub-Category Detail Notes Nail Avulsion Procedure A fine sterile e levator was placed between the eponychium, nail fold, and nail plate to separate the the structures. A sterile nail splitter, and/or sterile 316 blade, was then used to longitudinally section the nail along its entire length through the eponychium to the area under the nail fold. The offending portion of each nail was from the nail bed with a rolling action and then removed with a hemostat. No underlying bone was identified. There was minimal bleeding as hemostasis was achieved through use of either a digital tournaquet or the aforementioned local with epinephrine. A bacitracin sterile dressing was applied. Local wound aftercare instructions were discussed and dispensed. The patient was informed of both conservative and future surgical procedures to prevent recurrence - 18125/32 Anesthesia 6cc of 1 percent Lid ocaine Plain local anesthesic utilizing aseptic technique Location Medial nail border, T5, Lateral nail border, TA Progress Notes * Samuel SPARKS TDOB:[birth year] (69 yo M)Acc No.[id number]:07/31/2024 Progress Note Patient:?Samuel SPARKS T Provider:?Claudia Osei DPM :1955???Age:69 Y???Sex:Male Francisco e:07/31/2024 Address:[address] [place] [address] Rd, [facility] [place], [id number] Pcp:Nawaf Willams MD Subjective: * Chief Complaints: * ???Ingrown NailFungal Nails * HPI: ???Painful Nails:?Nature:?aching, tender, discolored, thick.?Location:?Great toe , Both feet.?Course:?, improved.?Aggravated by:?shoegear causing difficulty standing/walking.?Treatments:?, Formula 7 topical solution.? * ROS:?General/Constitutional:?Nausea?denies.?Vomiting?denies.?Hunger Thirst?denies.?Loss appetite?denies.?Chills?denies.?Fatigue?denies.?Fever?denies.?Night Sweats?denies.?Unexplained weight loss?denies.?Unexplained weight gain?denies.?HEENTM:?Dentures?denies.?Dizziness?denies.?Glasses/contacts?admits.?Retinopathy?de nies.?Blurred/double vision?denies.?TMJ?denies.?Discharge/drainage?denies.?Implants?denies.?Sore throat?denies.?Dental implants?denies.?Hard of hearing ?denies.?Difficulty chewing/swallowing/speaking?denies.?Nose bleeds?denies.?Sore mouth?denies.?Respiratory:?On Oxygen?denies.?Pneumonia/pleurisy?denies.?Bronchitis?denies.?Emphysema?denies.?C oughing?denies.?Cough blood?denies.?Shortness of breath?denies.?Wheezing?denies.?Cardiovascular:?Pacemaker?denies.?MVP?denies.?WPW?denies.?CHF?denies.?Heart attack?denies.?Septal defect?denies.?Rapid beat?denies.?Chest pain ?denies.?Atrial Fib.?denies.?Murmur/Palpitations?denies.?Gastrointestinal:?Hemorrhoids?admits.?Stomach/Abdominal pain?denies.?Dark blood stool?denies.?Irritable bowel ?admits.?Constipation?admits.?Diarrhea?denies.?Hematology:?Swelling?denies.?Clots?denies.?Varicose Veins?denies.?Bruising?denies.?Bleeding problem?denies.?Genitourinary:?Blood urine?denies.?Frequent/Painfu/urination/bladder control?denies.?Kidney stones?denies.?Infection (UTI)?denies.?Nephropathy?denies.?sex trans dis (STD)?denies.?Prostate?denies.?Musculoskeletal:?Hammertoes?denies.?Bunions?denies.?Back Pain?admits.?Muscle Cramps/ Resting?denies.?Muscle cramps / walking?denies.?Generalized aches and pains?denies.?Weakness?denies.?Integ.:?Rivera?denies.?Scars?denies.?Corns/calluses?denies.?Ingrown nails?admits.?Painful nails?denies.?Open Sores?denies.?Rashes?denies.?Neurologic:?Difficulty sleeping?denies.?Brain disorder?denies.?Numbness?denies.?Balance trouble?denies.?Confusion?denies.?Fainting/blackouts?denies.?Tingling?denies.?Tr emors?denies.? * Medical History:? * Surgical History:?tendon 201 & 2022 * Hospitalization/Major Diagno stic Procedure:?Denies Past Hospitalization * Family History:?Mother: dece ased.?Father: alive, stroke, foot problems.? * Social History:?Tobacco Use:?Tobacco Use/Smoking?Are you a:?nonsmoker ?Additional Findings: Tobacco Non-User?Current non-smoker ?Tobacco use other than smoking?Are you an other tobacco user??No ???Miscellaneous:?Caffeine: no. ?Children: no. ?Exercise: no. ?Marital status: . 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 * Medications:?TakingTestoster one Nortriptyline HCl tiZANidine HCl 2 MG Tablet 1 tablet as needed Orally Three times a day traZODone HCl 100 MG Tablet 1 tablet at bedtime Orally Once a day Topamax 50 MG Tablet 1 tablet Orally Once a day Sildenafil Citrate 100 MG Tablet 1 tablet as needed Orally Once a day Relpax 40 MG Tablet 1 tablet Orally Once a day Dexilant 60 MG Capsule Delayed Release 1 capsule Orally Once a day Cymbalta 30 MG Capsule Delayed Release Particles 1 capsule Orally Once a day Medication List reviewed and reconciled with the patientTaking Testosterone Taking Nortriptyline HCl Taking tiZANidine HCl 2 MG Tablet 1 tablet as needed Orally Three times a day Taking traZODone HCl 100 MG Tablet 1 tablet at bedtime Orally Once a day Taking Topamax 50 MG Tablet 1 tablet Orally Once a day Taking Sildenafil Citrate 100 MG Tablet 1 tablet as needed Orally Once a day Taking Relpax 40 MG Tablet 1 tablet Orally Once a day Taking Dexilant 60 MG Capsule Delayed Release 1 capsule Orally Once a day Taking Cymbalta 30 MG Capsule Delayed Release Particles 1 capsule Orally Once a day Medication List reviewed and reconciled with the patient * Allergies:?N.K.D.A.yes[Aller gies Verified] Objective: * Vitals:?Ht: 5ft9in, Wt:172, BMI:25.4, Shoe size: 10, BP:120/78mm Hg, Ht-cm: 175.26 cm, Wt-k.02 kg. * Examination: ???Ingrown Nail: ?INSPECTION:?Reveals nail incurvation, pain on palpation, groove hypertrophy , Reveals mild nail incurvation, minimal pain on palpation, groove hypertrophy , Medial nail border, T5, Lateral nail border, TA.?Nails: ?NAILS are:?Elongated, overgrown, dystrophic, lytic, greater than 3mm thick, discolored and friable with crumbly malodorous subungual debris, with pain on palpation, proximal clearing of nail approximately 90 percent.?General Examination: ?GENERAL APPEARANCE:?Reveals a pleasant, alert, well-nourished, well- developed, well hydrated individual, who demonstrates proper attention to hygiene/body habitus, and is in no acute distress, Pt serves as own?historian for office visit today.?ORIENTED:?person, place, and time.?Neurological: ?SENSORY:?Neurological exam reveals intact sensorium, pain sensation normal, vibration sensation intact, pinprick sensation is normal in the lower extremities, Pt denies, anesthesia, burning, paresthesia, tingling, B/L.?Vascular: ?DP PULSES (B):?3/4, B/L.?PT PULSES (B):?3/4, B/L.?CAPILLARY FILL TIME:?immediate, all digits, B/L.?TROPHIC CONDITION-TEXTURE/ELASTICITY/TURGOR/HAIR GROWTH (B):?normal, B/L.?TEMPERTURE GRADIENT (C):?warm to cool, proximal to distal, B/L.?PIGMENTATION:?normal, B/L.?EDEMA (C):?absent, B/L.?Dermatologic: ?SKIN FINDINGS:?Skin exam reveals normal texture, elasticity, and turgor. There are no masses. The interspaces are clear.?Orthopedic: ?MUSCLE STRENGTH:?5/5 all groups in a symmetrical fashion , B/L.? Assessment: * Assessment: 1.?Ingrown nail - L60.0 (Diamond ferrer)???2.?Fungal infection of nail - B35.1???3.?Pain in toe of left foot - M79.675???4.?Pain in toe of right foot - M79.674??? Plan: * Treatment: * Procedures:?Nail Avulsion:?Location?Medial nail border, T5, Lateral nail border, TA.?Anesthesia?6cc of 1 percent Lidocaine Plain local anesthesic utilizing aseptic technique.?Procedure?A fine sterile elevator was placed between the eponychium, nail fold, and nail plate to separate the the structures. A sterile nail splitter, and/or sterile 316 blade, was then used to longitudinally section the nail along its entire length through the eponychium to the area under the nail fold. The offending portion of each nail was from the nail bed with a rolling action and then removed with a hemostat. No underlying bone was identified. There was minimal bleeding as hemostasis was achieved through use of either a digital tournaquet or the aforementioned local with epinephrine. A bacitracin sterile dressing was applied. Local wound aftercare instructions were discussed and dispensed. The patient was informed of both conservative and future surgical procedures to prevent recurrence - 66082/32.? * Procedure Codes:?19472 Avuls ion Plate, Modifiers: XS , [id number] Avulsion Plate Each Additional, Modifiers: XS , TA * Preventive Medicine:? ??Counseling:?Discussion:?-13: Office or other outpatient visit for the evaluation and management of an established patient, which required a medically appropriate history and/or examination and LOW level of DECISION MAKING for: 1 STABLE ACUTE UNCOMPLICATED PROBLEM, 2 OR MORE MINOR PROBLEMS, OR 1 STABLE CHRONIC PROBLEM, THAT POSE(S) A LOW RISK FOR MORBIDITY/MORTALITY. The visit on the day of the encounter encompassed interpreting the data and educating the patient as to the nature of their condition, treatment options available according to their individual PMH, meds, allergies, and overall health/living conditions, as well as any potential risks or complications that may occur from a failure to adhere to, and participate in, the recommended course of therapy. The discussion included a complete verbal, and/or written explanation of the examination results, any x-rays taken, the proposed diagnosis, and outline of the treatment plan. A schedule for future care needs was also explained. The patient verbalized an understanding of the instructions at this time and agreed to be an active participant in their treatment. If the patient should think of any questions or concerns after the visit, I have encouraged the patient to call the office, .?F/U Fungal nails:?Reviewed with the patient the time needed before we start seeing results with the topical medication. Discussed the results that we hope to see . We discussed the duration of time needed to see results..? * Follow Up:?prn * Images: * Sign off status: Completed true * Provider:?Claudia Osei DPM Date:? Generated for Rachelle guzman/Yannick/Ortega on:?08/04/2024 02:13 PM EDT History and Physical Notes * HPI (History of Present Illness) Category Sub-Category Detail Notes Category Not es Painful Nails Aggravated by: shoegear causing difficulty standing/walking Course: , improved Location: Great toe , Both fee t Nature: aching, tender, disc olored, thick Treatments: , Formula 7 topical solution Examination Category Sub-Category Detail Notes Category Not es Ingrown Nail INSPECTION: Reveals nail inc urvation, pain on palpation, groove hypertrophy , Reveals mild nail incurvation, minimal pain on palpation, groove hypertrophy , Medial nail border, T5, Lateral nail border, TA Neurological SENSORY: Neurological exa m reveals intact sensorium, pain sensation normal, vibration sensation intact, pinprick sensation is normal in the lower extremities, Pt denies, anesthesia, burning, paresthesia, tingling, B/L Dermatologic SKIN FINDINGS: Skin exam reveal s normal texture, elasticity, and turgor. There are no masses. The interspaces are clear Orthopedic MUSCLE STRENGTH: 5/5 all groups in a symmetrical fashion , B/L General Examination GENERAL APPEARANCE: Reveals a pleasant, alert, well-nourished, well-developed, well hydrated individual, who demonstrates proper attention to hygiene/body habitus, and is in no acute distress, Pt serves as own historian for office visit today ORIENTED: person, place, and t kaylene Vascular DP PULSES (B): 3/4, B/L PT PULSES (B): 3/4, B/L CAPILLARY FILL TIME: immediate, all digi ts, B/L TEMPERTURE GRADIENT (C): warm to cool, p roximal to distal, B/L TROPHIC CONDITION-TEXTURE/ELASTICITY/TURGOR/HAIR GROWTH (B): normal, B/L EDEMA (C): absent, B/L PIGMENTATION: normal, B/L Nails NAILS are: Elongated, overg rown, dystrophic, lytic, greater than 3mm thick, discolored and friable with crumbly malodorous subungual debris, with pain on palpation, proximal clearing of nail approximately 90 percent
--- OUTSIDE RECORDS SUMMARY | 2024-08-04 14:13 | XMS_ITS ---
Author Organization [facility] Address [address] [place] [address] Care Team Providers Care Lookback Coordinator Name Role Phone Arnaldo Archer Primary Care Provider [phone] Nawaf Willams Unavailable Unavailable Medications Medication SIG (Take, Route, Fr equency, Duration) Notes Start Date End Date Status Ubrelvy 100 MG TAKE 1 TABLET BY SOURAV TH ALONG WITH 2 IBUPROFEN AT ONSET OF MIGRAINE. MAY REPEAT 1 TIME AFTER 2 HOURS IF HEADACHE RETURNS for 90 days Act david Encounters Encounter Location Date Provider Diagnosis [facility] [address] [place] [address] 02/13/2024 Arnaldo Archer Chronic migraine wit h [...] Notes * Samuel SPARKSDOB:1954 (69 yo M)Acc No.[id number]:02/13/2024 Patient:?Samuel SPARKS :1955???Age:69 Y???Sex:Male Address:[address] [place] [address], [facility] [place], [address] * Refills? Refill Ubrelvy Tablet, 100 MG, 48 Tablet, TAKE 1 TABLET BY MOUTH ALONG WITH 2 IBUPROFEN AT ONSET OF MIGRAINE. MAY REPEAT 1 TIME AFTER 2 HOURS IF HEADACHE RETURNS, 90 days, Refills=3 * true * Date:? Generated for Rachelle guzman/Yannick/Justineitting on:?08/04/2024 02:12 PM EDT
--- OUTSIDE RECORDS SUMMARY | 2024-08-04 14:13 | XMS_ITS | Encounter Summary ---
Author Organization [facility] Address [address] [place] [address] Care Team Providers Care White Washer Piler Name Role Phone Unavailable Primary Care Provider Unavailabl e Reason for Referral * Consultation (Routine) - Closed Specialty Diagnoses / Procedures Referred By Contac t Referred To Contact Neurology Diagnoses Intractable chronic migraine without aura and with status migrainosus Mckenzie Gooden MD [address] [place] [address] [place] [address] Phone: tel: fax: Neurology at [address] [address] Phone: tel: fax: Referral ID Status Reason Start Date Expiration Date V isits Requested Visits Authorized [id number] Closed Specialty Services Required 03/03/2020 03/03/2021 1 1 Encounter Details Date Type Department Care Team (Late st Contact Info) Description 03/03/2020 Transcribed Orders [facility] SCHEDULING [address] [place], [place] [address] Mckenzie Gooden MD [address] [place] [address] [place] [address] Intractable chronic migraine without aura and with status migrainosus (Primary Dx) Social History Tobacco Use Types Packs/Day Years Used Date Smoking Tobacco: Never Assessed Sex and Gender Information Value Date Recorded Sex Assigned at Not on file Legal Sex Male 1:17 PM EDT Gender Identity Not on file Sexual Orientation Not on file documented as of this encounter Plan of Treatment Scheduled Referrals Name Type Priority Associated Diagnoses Orde r Schedule Ambulatory referral to Neurology Outpatient Referral Routine Intractable chronic migraine without aura and with status migrainosus Ordered: 03/03/2020 documented as of this encounter Visit Diagnoses Diagnosis Intractable chronic migraine without aura and with status migrainosus- Primary Chronic migraine without aura, with intractable migraine, so stated, with status migrainosus documented in this encounter
--- OUTSIDE RECORDS SUMMARY | 2024-08-04 14:13 | XMS_ITS ---
Author Organization [facility] Address [address] [place] [address] Care Team Providers Care Set Up And Charger Name Role Phone Arnaldo Archer Primary Care [...] Hg 024 Heart Rate 65 /min 10/31/2023 Weight 166.5 lbs 10/31/2023 Weight-kg 75.52 kg 10/31/2023 Height 69 in 10/31/2023 BMI 24.59 kg/m2 10/31/2023 Encounters Encounter Location Date Provider Diagnosis [facility] [address] [place] [address] 10/31/2023 Arnaldo Archer Chronic migraine wit hout aura, intractable, without status migrainosus G43.719 Assessments Encounter Date Diagnosis (ICD Code) Assessment Notes Treatment Notes Treatment Clinical Notes Section Notes 10/31/2023 Chronic migraine without aura, intractable, without status migrainosus (ICD-10 - G43.719) Plan Of Treatment No Information Progress Notes * Samuel SPARKSDOB:1954 (69 yo M)Acc No.[id number]:10/31/2023 Progress Notes Patient:?Samuel SPARKS Provider:?Arnaldo Archer MD :1955???Age:68 Y???Sex:Male Francisco e:10/31/2023 Address:[address] [place] [address], [id number] Subjective: * Chief Complaints: * ??? * [...] Treatment: * Billing Information: * Visit Code:? 10530 OFFICE VISIT,EST PT,LEVEL 4. * Procedure Codes:? * Electronic [place], [id number] on 08/04/2024 at 02:13 PM EDT Sign off status: Pending * Provider:?Arnaldo Archer MD Date:?10/18 Generated for Rachelle guzman/Yannick/eTransmitting on:?08/04/2024 02:13 PM EDT
== END 2024-08-04 12:32 | disposition home or self-care (01) ==
LOC: HO.HOP 11:45
PROVIDERS: PCP Internal Medicine; Visit Provider Psychiatry & Neurology Psychiatry
DX: F34.1 Dysthymic disorder (principal); F41.1 Generalized anxiety disorder; R51.9 Headache, unspecified; G89.29 Other chronic pain
CPT/HCPCS: 99213

== ENCOUNTER → 2024-08-04 11:45 | Outpatient (BNVA) | payer MEDICARE, SELFPAY | PROVIDERS: PCP Internal Medicine; Visit Provider Psychiatry & Neurology Psychiatry | DX: F34.1 Dysthymic disorder (principal); F41.1 Generalized anxiety disorder; R51.9 Headache, unspecified; G89.29 Other chronic pain; Z71.89 Other specified counseling | CPT/HCPCS: 99212 ==

== ENCOUNTER 2024-08-10 15:01 | Outpatient (REF) | payer MEDICARE, SELFPAY | END 2024-08-10 15:02 | disposition home or self-care (01) | LOC: HO.HMGCLDS 15:01 | PROVIDERS: PCP Internal Medicine; Visit Provider Urology | DX: E29.1 Testicular hypofunction (principal) | CPT/HCPCS: 36415; 84403 ==

== ENCOUNTER 2024-08-25 09:04 | Outpatient (AMB) | payer MEDICARE, SELFPAY ==
--- NOTE | 2024-08-25 09:04 | MHC.OFFVIS ---
Intake Visit Reasons: 3m/Testo Intake Note: Patient is present for 3M/TESTO Urology Medication:TADALAFIL,TESTOSTERONE Antibiotic Allergy:NONE Blood Thinner:NONE Head Sulfide Operator Required: No Allergies No Known Allergies Allergy (Verified 08/25/24 09:06) HPI Comments Details: Samuel is a pleasant male. He is a patient of Dr. Willams. He is referred for the following urologic conditions - elevated PSA - erectile dysfunction - hot flashes Telemedicine Evaluation 15 min Consultation [employer] T followup 3 months Total increased to 450 Review in 4 months Stable PSA GLORIA normal Effective voiding parameters with good emptying and stream PCPT 6% high risk - at threshold for MRI/biopsy Hypogonadism 06/13 T 225 FT 18 LH 38 P 3.7 Started T 06/13 - 1 packet per day 08/11 451 Erectile dysfunction Progressive - Has been on SSRIs Noted to have hot flashes 03:00 in the morning Trial daily tadalafil with three-month follow-up testosterone and estrogen labs - Neurologist called william - sarai Elevated PSA Reports prior PSA had been upper end normal range Minimal issues with urination GLORIA normal No family history prostate cancer Has been given instructions optimized PSA testing PSA 03/09 3.9, 10/08 3.6, 10/09 3.6, 08/10 4.1, 02/10 T 367 F 19 Repeat in 12 months [facility] Medical History Generalized anxiety disorder Dysthymia (or depressive neurosis) History of GI bleed Chronic headache disorder Social History Current occupational status: employed 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 Review of Systems Const All systems reviewed & are unremarkable except as noted in HPI and below Reports no additional complaints Resp Reports no additional complaints GI Reports no additional complaints Reports as per HPI Musc Reports no additional complaints Physical Exam Telemedicine evaluation Appropriate responses Regular breathing rate and rhythm HEENT Head: Yes normal to inspection Ears: hearing grossly normal bilaterally Eyes General: appearance normal, both eyes and all related structures Neck Neck: Yes normal visual inspection Chest Chest palpation & inspection: normal inspection of the chest Resp Effort & Inspection: normal respiratory effort and able to speak in complete sentences Telehealth Telehealth Location of provider rendering services: practice address Location of patient: address on file Patient Identification confirmed using: Name, : Yes Telehealth method: voice only Patient verbally consented to treatment: Yes Patient verbally consented to billing insurance company: Yes Patient informed of any privacy concerns related to visit: Yes Assessment & Plan Assessment & Plan (1) Erectile dysfunction: Code(s): N52.9 - Male erectile dysfunction, unspecified Category: Medical (2) Hypogonadism in male: Code(s): E29.1 - Testicular hypofunction Category: Medical Plan Continue gel Offered injectable saline 4 month follow-up Orders: Orders Testosterone, Total 4 Months E29.1 - Testicular hypofunction Medications: Refilled testosterone Apply to shoulder and rub in until dry 1 packet transdermal DAILY 30 days 150 grams 5RF E29.1 - Testicular hypofunction Patient Instructions: This note is constructed using voice recognition software. While every effort has been made to ensure accuracy histological illustrator errors may have been included. Imaging studies, laboratory and physical exam results were discussed and reviewed in detail. No major barriers to patient understanding were identified. An opportunity to ask questions regarding the treatment plan was provided. All questions were answered. The patient expressed understanding and agreement with the above treatment plan. The patient is aware they should contact our office by phone for worsening of their current condition or the appearance of new urologic symptoms. Compliance is encouraged with any medications and followup testing that is ordered. It is a privilege to participate in the urologic care of your patient. If you have any questions or concerns regarding treatment for the above conditions, or other urologic issues, please do not hesitate to contact me. The office telephone contact is [phone]. Sincerely, Dr Johnny White MD, [facility] - Urology Compassionate Specialist Care for the Genitourinary System Coding Level of Care Code Tele Est Pt Level 3 (49877) Diagnoses Erectile dysfunction N52.9 Hypogonadism in male E29.1
--- OUTSIDE RECORDS SUMMARY | 2024-08-25 09:56 | XMS_ITS | Patient Health Record ---
Author Organization [facility] Address [address] [place] [address] Care Team Providers Care Office Machines Teacher Name Role Phone Arnaldo Archer Primary Care [...] Notes Problem Chronic migraine without aura, non-intractable (341572382055228 ) Chronic migraine without aura, not intractable, without status migrainosus (G43.709) Active confirmed Problem Chronic intractable migraine without aura (652495374667885 ) Chronic migraine without aura, intractable, with status migrainosus (G43.711) Active confirmed Problem Chronic intractable migraine without aura (044883998912093 ) Chronic migraine without aura, intractable, without status migrainosus (G43.719) Active confirmed Vital Signs Heart Rate 65 /min 10/31/2023 Blood pressure diastolic 85 mm Hg 10/31/2023 Weight-kg 75.52 kg 10/31/2023 Height 69 in 10/31/2023 Blood pressure systolic 135 mm Hg 10/31/2023 Weight 166.5 lbs 10/31/2023 BMI 24.59 kg/m2 10/31/2023 Encounters Encounter Location Date [facility] [address] [place] [address] 08/29/2023 Arnaldo Méndezley Chronic migraine wit hout aura, intractable, without status migrainosus G43.719 [facility] [address] [place] [address] 10/31/2023 Arnaldo Archer Chronic migraine wit hout aura, intractable, without status migrainosus G43.719 [facility] [address] [place] [address] 02/13/2024 Arnaldo Archer Chronic migraine wit h aura, intractable, without status migrainosus G43.E19 [facility] [address] [place] [address] 06/03/2024 Arnaldo Archer Chronic migraine wit h [...] Insured Coverage Start Date Coverage End Date [facility] [address] [place], [place] [id number] Samuel Mcdonnell Self - patient is the insured 4 Medical (General) History Medical History History ICD Code Headaches Anxiety GERD GI bleed Erectile Dysfunction Sleep disturbance HLD Tinnitus Surgical History Surgery Date(Month/Year) left elbow surgery appendectomy Bilat elbow surgery 12/11/22 Hospitalization History Reason Date(Month/Year) Stitches L hand Broken left hand 09/2022
--- OUTSIDE RECORDS SUMMARY | 2024-08-25 09:56 | XMS_ITS ---
Author Organization [facility] Priyasai Mccainley Address [address] [facility] [place] [address] Care Team Providers Care Ferris Wheel Operator Name Role Phone Nawaf Willams MD Primary Care Provider UnavailClaudia Salgado [phone] REASON FOR VISIT BUY Formula 7 Encounters Encounter Location Date Provider Diagnosis [address] [place] [address] 01/22/2024 Claudia Osei Plan Of Treatment No Information Progress Notes * Samuel SPARKS TDOB:[birth year] (69 yo M)Acc No.[id number]:01/22/2024 Patient:?Samuel Sparks :1955???Age:69 Y???Sex:Male Address:[address] [place], [place] [address] [address] * Addendum: * ? true * Date:? Generated for Printi megan/Yannick/eTransmitting on:?08/25/2024 09:56 AM EDT
--- OUTSIDE RECORDS SUMMARY | 2024-08-25 09:56 | XMS_ITS | Clinical Summary ---
Author Organization [address] [address] Phone Care Team Providers Care Automatic Coin Machine Mechanic Name Role Phone Unavailable Primary Care Provider [...] 2022 Influenza vaccine 12/19/2023 Covid-19 vaccine series (1 - season) 2024 RSV Immunization (1 - 1-dose 75+ series) 01/13/2032 Meningococcal Vaccine Aged Out No yaneli jesica eligible based on patient's age to complete this topic
--- OUTSIDE RECORDS SUMMARY | 2024-08-25 09:56 | XMS_ITS ---
Author Organization [facility] [place]agan [place] Address [address] [place] [address] Care Team Providers Care Battery Charger Name Role Phone Nawaf Willams MD Primary Care Provider Claudia Griffin Unavailable [phone] Allergies No Known Allergies REASON FOR VISIT [...] 025 Encounters Encounter Location Date Provider Diagnosis [facility] [place] [address] [place] [address] 07/31/2024 Claudia Farnaz Ingrown nail L60.0 ; [...] future surgical procedures to prevent recurrence - 01610/32 Anesthesia 6cc of 1 percent Lid ocaine Plain local anesthesic utilizing aseptic technique Location Medial nail border, T5, Lateral nail border, TA Progress Notes * Samuel SPARKS TDOB:[birth year] (69 yo M)Acc No.[id number]:07/31/2024 Progress Note Patient:?Samuel SPARKS T Provider:?Claudia Osei DPM :1955???Age:69 Y???Sex:Male Francisco e:07/31/2024 Address:[address] [place] [address] Rd, [facility] [place], [place] Pcp:Nawaf Willams MD Subjective: * Chief Complaints: [...] no. ?Exercise: no. ?Marital status: . 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 * Medications:?TakingTestoster one Nortriptyline HCl tiZANidine [...] future surgical procedures to prevent recurrence - 90584/32.? * Procedure Codes:?66041 Avuls ion Plate, Modifiers: XS , [id number] Avulsion Plate Each Additional, Modifiers: XS , [...] Osei DPM Date:? Generated for Rachelle guzman/Yannick/Ortega on:?08/25/2024 09:56 AM EDT History and Physical Notes * HPI [...]
--- OUTSIDE RECORDS SUMMARY | 2024-08-25 09:56 | XMS_ITS ---
Author Organization [facility] Address [address] [place] [address] Care Team Providers Care Cognos Architect Name Role Phone Arnaldo Archer Primary Care Provider [phone] Nawaf Willams Unavailable Unavailable Medications Medication SIG [...] Encounter Location Date Provider Diagnosis [facility] [address] [place] [address] 10/31/2023 Arnaldo Archer Chronic migraine wit hout aura, intractable, without status migrainosus G43.719 Assessments Encounter Date Diagnosis (ICD Code) Assessment Notes Treatment Notes Treatment Clinical Notes Section Notes 10/31/2023 Chronic migraine without aura, intractable, without status migrainosus (ICD-10 - G43.719) Plan Of Treatment No Information Progress Notes * Samuel SPARKSDOB:1954 (69 yo M)Acc No.[id number]:10/31/2023 Progress Notes Patient:?Samuel SPARKS Provider:?Arnaldo Archer MD :1955???Age:68 Y???Sex:Male Francisco e:10/31/2023 Address:[address] [place] [address], [facility] Subjective: * Chief Complaints: * ??? * [...] Treatment: * Billing Information: * Visit Code:? 64895 OFFICE VISIT,EST PT,LEVEL 4. * Procedure Codes:? * Electronic [place], [id number] on 08/25/2024 at 09:56 AM EDT Sign off status: Pending * Provider:?Arnaldo Archer MD Date:?10/18 Generated for Rachelle guzman/Yannick/eTalexismitting on:?08/25/2024 09:56 AM EDT
--- OUTSIDE RECORDS SUMMARY | 2024-08-25 09:56 | XMS_ITS | Patient Health Record ---
Author Organization [facility] [place] Address [address] [place] [address] Care Team Providers Care Construction Stonemason Name Role Phone Nawaf Willams MD Primary Care Provider Claudia Griffin Unavailable [phone] Allergies No Known Allergies Reason For Referral [...] 07/31/2024 Encounters Encounter Location Date Provider Diagnosis [address] [address] 07/31/2024 Claudia Osei Ingrown nail L60.0 ; Fungal infection of nail B35.1 ; Pain in toe of left foot M79.675 and Pain in toe of right foot M79.[address] [address] 01/22/2024 Claudia Osei [address] [address] 07/31/2024 Claudia Osei Assessments Encounter Date Diagnosis [...] Insured Coverage Start Date Coverage End Date [facility] [address] [place] [address] [phone] [id number] Samuel Mcdonnell Self - patient is the insured 3 [employer] [address] [place] [address] [id number] Samuel Mcdonnell Self - patient is the insured 3 Medical (General) History Medical History History ICD Code Anxiety CAD (Cholesterol) covid-19 Headaches Stomach ulcer Joint implants/screws Surgical History Surgery Date(Month/Year) tendon 2012 & 2022
--- OUTSIDE RECORDS SUMMARY | 2024-08-25 09:56 | XMS_ITS | Patient Health Record ---
Author Organization [facility] Address [address] [place] [address] Care Team Providers Care Colorist Name Role Phone Nawaf Willams MD Primary Care Provider Unavaila Fredis Moya Jr [phone] Reason For Referral No Information Medications Medication SIG (Take, Route, Frequency, Duration) Notes Start Date End Date Status Lomotil Active traZODone HCl 100 MG Orally Active Cymbalta 30 MG 1 capsule Orally Twi ce a day Active Topamax 100 MG 1 tablet Orally Once a day Active Dexilant 60 MG 1 capsule Orally Onc e a day Active Glucosamine Chondr 1500 Complx 1500 mg 1 Orally QD Active Relpax 40 MG 1 tablet as needed o ne time Orally Once a day Active Problems Problem Type SNOMED Code ICD Code Onset Dates Problem Status W/U Status Risk Notes Problem 793977974 Loss of weight (783.21) Active confirmed Problem 79935583 Rectal bleeding (569.3) Active confirmed Problem 55057638 Rectal bleeding (K62.5) Active confirmed Plan Of Treatment Future Test Test Name Order Date COLONOSCOPY 08/25/2014 Next Appt Details Provider Name:Fredis caldwell Jr, 12/02/2024 09:40:00 AM, [address], [address], [place], [address], Insurance Providers Payer Name Payer Address Payer Phone Subscriber Number Group Number Insured Name Patient Relationship to Insured Coverage Start Date Coverage End Date [facility] [address] [place] [phone] [id number] REGULO ESTRADA Self - patient is the insured Medical (General) History Medical History History ICD Code Colonoscopy, 2007, diverticulosis IBS Headaches Depression Stress Peptic disease Denies [place],DM,CVA,Lung disease,renal dise ase Surgical History Surgery Date(Month/Year) Appendectomy
--- OUTSIDE RECORDS SUMMARY | 2024-08-25 09:56 | XMS_ITS ---
Author Organization [facility] Priyasai Mccainley Address [address] [facility] [place] [address] Care Team Providers Care Stapler Coil Unit Name Role Phone Nawaf Willams MD Primary Care Provider Unavaila Claudia Queen [phone] REASON FOR VISIT BUY Formula 7 Encounters Encounter Location Date Provider Diagnosis [address] [place] [address] 07/31/2024 Claudia Osei Plan Of Treatment No Information Progress Notes * Samuel SPARKS TDOB:[birth year] (69 yo M)Acc No.[id number]:07/31/2024 Patient:?Samuel SPARKS :1955???Age:69 Y???Sex:Male Address:[address] [place], [place] [address] [address] * true * Date:? Generated for Meccai megan/Yannick/eTransmitting on:?08/25/2024 09:56 AM EDT
--- OUTSIDE RECORDS SUMMARY | 2024-08-25 09:56 | XMS_ITS ---
Author Organization [facility] Address [address] [place] [address] Care Team Providers Care Cloth Grader Name Role Phone Arnaldo Archer Primary Care [...] david Encounters Encounter Location Date [facility] [address] [place] [address] 06/03/2024 Arnaldo Archer Chronic migraine wit h [...] Notes * Samuel SPARKSDOB:1954 (69 yo M)Acc No.[id number]:06/03/2024 Patient:?Samuel SPARKS :1955???Age:69 Y???Sex:Male Address:[address] [place] [address], [facility] [place], [address] * Refills? Refill Ubrelvy Tablet, 100 MG, 48 Tablet, TAKE 1 TABLET BY MOUTH ALONG WITH 2 IBUPROFEN AT ONSET OF MIGRAINE. MAY REPEAT 1 TIME AFTER 2 HOURS IF HEADACHE RETURNS, 90 days, Refills=3 * true * Date:? Generated for Rachelle guzman/Yannick/Monicasmitting on:?08/25/2024 09:56 AM EDT
--- OUTSIDE RECORDS SUMMARY | 2024-08-25 09:56 | XMS_ITS ---
Author Organization [facility] Address [address] [place] [address] Care Team Providers Care Auto Self Service Station Attendant Name Role Phone Arnaldo Archer Primary Care Provider [phone] Nawaf Willams Unavailable Unavailable Medications Medication SIG (Take, Route, Fr equency, Duration) Notes Start Date End Date Status Ubrelvy 100 MG TAKE 1 TABLET BY SOURAV TH ALONG WITH 2 IBUPROFEN AT ONSET OF MIGRAINE. MAY REPEAT 1 TIME AFTER 2 HOURS IF HEADACHE RETURNS for 90 days Act david Encounters Encounter Location Date Provider Diagnosis [facility] [address] [place] [address] 02/13/2024 Arnaldo Archer Chronic migraine wit h [...] Notes * Samuel SPARKSDOB:1954 (69 yo M)Acc No.[id number]:02/13/2024 Patient:?Samuel SPARKS :1955???Age:69 Y???Sex:Male Address:[address] [place] [address], [facility] [place], [address] * Refills? Refill Ubrelvy Tablet, 100 MG, 48 Tablet, TAKE 1 TABLET BY MOUTH ALONG WITH 2 IBUPROFEN AT ONSET OF MIGRAINE. MAY REPEAT 1 TIME AFTER 2 HOURS IF HEADACHE RETURNS, 90 days, Refills=3 * true * Date:? Generated for Rachelle guzman/Yannick/Justineitting on:?08/25/2024 09:55 AM EDT
--- OUTSIDE RECORDS SUMMARY | 2024-08-25 09:56 | XMS_ITS | Encounter Summary ---
Author Organization [facility] Address [address] [place] [address] Care Team Providers Care Educational Specialist Name Role Phone Unavailable Primary Care Provider Unavailabl e Reason for Referral * Consultation (Routine) - Closed Specialty Diagnoses / Procedures Referred By Contac t Referred To Contact Neurology Diagnoses Intractable chronic migraine without aura and with status migrainosus Mckenzie Gooden MD [address] [place] [address] [place] [address] Phone: tel: fax: Neurology at [address] [address] Phone: tel: fax: Referral ID Status Reason Start Date Expiration Date V isits Requested Visits Authorized [id number] Closed Specialty Services Required 03/03/2020 03/03/2021 1 1 Encounter Details Date Type Department Care Team (Late st Contact Info) Description 03/03/2020 Transcribed Orders [facility] SCH[facility]UL[facility] [address] [place], [place] [address] Mckenzie Gooden MD [address] [place] [address] [place] [address] Intractable chronic migraine [...]
== END 2024-08-25 10:00 | disposition home or self-care (01) ==
LOC: HO.HUSH 09:04
PROVIDERS: PCP Internal Medicine; Visit Provider Urology
DX: N52.9 Male erectile dysfunction, unspecified (principal); E29.1 Testicular hypofunction
CPT/HCPCS: 99213

== ENCOUNTER 2024-12-02 10:28 | Outpatient (AMB) | payer MEDICARE, SELFPAY ==
--- OUTSIDE RECORDS SUMMARY | 2023-08-29 05:00 | XMS_ITS ---
Author Organization [facility] Address [address] [place] [address] Care Team Providers Care Silverer Name Role Phone Arnaldo Archer Primary Care Provider Nawaf Willams Unavailable Unavailable Medications Medication SIG (Take, Route, Frequency, Duration) Notes Start Date End Date Status ring relief 0 1 qhs for tinnitus for 30 04/28/2020 Active Eletriptan Hydrobromide 40 MG 1 tablet Orally at onset of migraine. May repeat dose after 2 hours if migraine recurs. for 30 days Active VITAMIN D3 1,000 UNIT SOFTGEL 25 MCG (1,000 UNIT) 0 1 qam for 30 04/28/2020 Active GLUCOSAMINE-CHONDROITIN LIQ 1,500-1,200 MG/30 ML 0 1 qhs for 30 04/28/2020 A ctive Sildenafil Citrate 100 MG 1 tablet as needed Orally Once a day for 30 days As needed 04/28/[address] 60 MG CAPSULE 0 1 qam for 30 0 Active traZODone HCl 100 MG 1 tablet at bedtime Orally Once a day Active Nurtec 75 MG 1 tablet on the tong ue and allow to dissolve Orally Not-Taking Nortriptyline HCl 10 MG TAKE 2 CAPSULES BY MOUTH AT BEDTIME for 90 days Active Ubrelvy 100 MG TAKE 1 TABLET BY SOURAV ALONG WITH 2 IBUPROFEN AT ONSET OF MIGRAINE. MAY REPEAT 1 TIME AFTER 2 HOURS IF HEADACHE RETURNS for [address] 30 MG CAP 60 1 qam 04/28/2020 Not-Taking tiZANidine HCl 2 MG 1 capsule Orally roshan ry morning for 90 days Active Vital Signs Blood pressure systolic 120 mm Hg 08/29/19 24 Blood pressure diastolic 80 mm Hg 024 Heart Rate 70 /min 08/29/2023 Height 69 in 08/29/2023 Weight 170.4 lbs 08/29/2023 BMI 25.16 kg/m2 08/29/2023 Weight-kg 77.29 kg 08/29/2023 Encounters Encounter Location Date Provider Diagnosis [facility] [address] [place] [address] 08/29/2023 Arnaldo Archer Chronic migraine wit hout aura, intractable, without status migrainosus G43.719 Assessments Encounter Date Diagnosis (ICD Code) Assessment Notes Treatment Notes Treatment Clinical Notes Section Notes 08/29/2023 Chronic migraine without aura, intractable, without status migrainosus (ICD-10 - G43.719) Plan Of Treatment Medication Medication Name Sig Start Date Stop Date Notes Nortriptyline HCl 10 MG TAKE 2 CAPSULES BY MOUTH AT BEDTIME for 90 days Next Appt Details Follow Up: 2 Months, Reason: Progress Notes * Samuel SPARKSDOB:1954 (69 yo M)Acc No.[id number]:08/29/2023 Progress Notes Patient: Samuel NIEVES Provider: Dorcas Archer MD :1955 A ge:68 Y S ex:Male Date:08/29/2023 Address:[address] [place], [place] [id number] Subjective: * Chief Complaints: * * Medical History: * Medications: T aking traZODone HCl 100 MG Tablet 1 tablet at bedtime Orally Once a day , Taking Sildenafil Citrate 100 MG Tablet 1 tablet as needed Orally Once a day As needed, Taking DEXILANT DR [address] BP 0 1 qam , Taking GLUCOSAMINE- CHONDROITIN LIQ 1,500-1,200 MG/30 ML LIQUID 0 1 qhs , Taking ring relief 0 1 qhs for tinnitus , Taking VITAMIN D3 1,000 UNIT SOFTGEL 25 MCG (1,000 UNIT) CAPSULE 0 1 qam , Taking Eletriptan Hydrobromide 40 MG Tablet 1 tablet Orally at onset of migraine. May repeat dose after 2 hours if migraine recurs. , Taking Nortriptyline HCl 10 MG Capsule TAKE 2 CAPSULES BY MOUTH AT BEDTIME , Taking tiZANidine HCl 2 MG Capsule 1 capsule Orally every morning , Taking Ubrelvy 100 MG Tablet TAKE 1 TABLET BY MOUTH ALONG WITH 2 IBUPROFEN AT ONSET OF MIGRAINE. MAY REPEAT 1 TIME AFTER 2 HOURS IF HEADACHE RETURNS , Not-Taking DULOXETINE HCL DR 30 MG CAP 60 1 qam , Not-Taking Nurtec 75 MG Tablet Disintegrating 1 tablet on the tongue and allow to dissolve Orally , Discontinued LOMOTIL 2.5-0.025 MG TABLET TABLET 0 1 tab prn , stop date 08/29/2023, Discontinued DULoxetine HCl 30 MG Capsule Delayed Release Particles 1 capsule Orally at bedtime , stop date 09/12/2023, Notes to Pharmacist: reduced dose, Discontinued Topiramate 50 MG Tablet 1 tablet Orally Once a day , stop date 09/12/2023 Objective: * Vitals: B P:120/80mm Hg, HR:70/min, Wt:170.4lbs, Wt-k.29 kg, Ht: 69 in, BMI:25.16Index, Body Surface Area: 1.94. Assessment: * Assessment: 1. C hronic migraine without aura, intractable, without status migrainosus - G43.719 (Primary)? Plan: * Treatment: * Follow Up: 2 Months * Billing Information: * Visit Code: 78078 OFFICE VISIT,EST PT,LEVEL 4. * Procedure Codes: * Electronic signature [place], [id number] on 12/02/2024 at 11:03 AM EDT Sign off status: Pending * Provider: Dorcas Archer MD Date: 0 08/29/2023 Generated for Rachelle guzman/Yannick/Ortega on: 0 12/02/2024 11:03 AM EDT
--- NOTE | 2024-12-02 10:43 | A.OFFPSYCH_ITS ---
Intake Intake Visit Reasons: DEPRESSION Allergies No Known Allergies Allergy (Verified 08/25/24 09:06) Medication List - Last Reconciled 12/02/24 by Ricky Meraz MD atorvastatin 10 mg PO DAILY dexlansoprazole (Dexilant) 60 mg PO DAILY duloxetine 60 mg PO DAILY ketoconazole 2% 1 appl topical lidocaine 5% 1 patch topical DAILY nortriptyline 10 mg PO BID tacrolimus 0.1% 1 appl topical BID tadalafil 10 mg PO DAILY 90 days testosterone 1 packet transdermal DAILY 30 days tizanidine 2 mg PO DAILY topiramate 50 mg PO DAILY trazodone 100 mg PO BEDTIME ubrogepant (Ubrelvy) mg PO HPI- Psychiatric Chief Complaint: DEPRESSION HPI Narrative: Pt seen in f/u mood has generally been doing okay. Has issues with chronic daily headache.. The patient has been chronically on nortriptyline Cymbalta did not want higher doses of Cymbalta secondary to sexual side effects. 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 Patient does best when he has structure and stays busy. No new medical concerns. Some degree of worry Past Psychiatric History: hyx chronic anxiety and depression Mental Status Exam Mental Status Exam Narrative: Mental Status Exam Narrative: Appearance: Casually dressed Behavior: Cooperative appropriate psychomotor: Within normal limits Speech: Normal volume and prosody Thought proccess logical and goal-directed Thought content: Future oriented focused on issues with his work possibly cutting back issues regarding to having chronic headache ongoing concern This continues some concerns about slowing down ongoing concern Mood: Described as ?okay ? Affect: Appropriate to mood full affect SI:denies HI:denies VH/AH:none Delusions: None Insight/judgment: Good insight and judgment patient knows that he needs to maintain some structure would have difficulty with full prison Discontinues to be ongoing concern Memory/cog: Intact Assessment and Plan Assessment & Plan (1) Dysthymia (or depressive neurosis): Status: Acute Code(s): F34.1 - Dysthymic disorder (2) Generalized anxiety disorder: Status: Acute Code(s): F41.1 - Generalized anxiety disorder Plan Patient essentially stable understands what the chronic issues are in relationship to potential prison mood stable generally doing okay Continue duloxetine 60 mg trazodone 100 at bedtime patient is also on Topamax 50 mg nortriptyline 10 b.i.d. prescribed by his headache specialist Counseling and coordination of Care Medication management counseling: Effectiveness and Side effects Diagnosis and Prognosis Counseling: Impact of family relationship and Adequacy of current interventions Details: I spent [30] minutes reviewing the record, seeing the patient and documenting in the medical record. Counseling provided to the patient/caregiver as outlined below. Addressed patient/caregiver concerns regarding current medication regime including effective adherence. Addressed patient/caregiver concerns regarding diagnosis and prognosis including accuracy of diagnosis, prognosis over time, impact of diagnosis. Addressed patient/caregiver concerns regarding impact of recent stressors. 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
--- OUTSIDE RECORDS SUMMARY | 2024-12-02 11:03 | XMS_ITS | Patient Health Record ---
Author Organization [facility] Address [address] [place] [address] Care Team Providers Care Senior Actuarial Analyst Name Role Phone Nawaf Willams MD Primary Care Provider UnavailFredis Antunez Jr [phone] Reason For Referral No Information Medications Medication [...] Problem Status W/U Status Risk Notes Problem 304457722 Loss of weight (783.21) Active confirmed Problem 00996781 Rectal bleeding (569.3) Active confirmed Problem 46178112 Rectal bleeding (K62.5) Active confirmed Encounters Encounter Location Date Provider Diagnosis [facility] [address] [place] [address] 12/02/2024 Fredis Underwood Jr Plan Of Treatment Future Test Test Name Order Date COLONOSCOPY 08/25/2014 Insurance Providers Payer Name Payer Address Payer Phone Subscriber Number Group Number Insured Name Patient Relationship to Insured Coverage Start Date Coverage End Date [facility] [address] [place] [phone] [id number] REGULO ESTRADA Self - patient is the insured Medical (General) History Medical History History ICD Code Colonoscopy, 2007, diverticulosis IBS Headaches Depression Stress Peptic disease Denies [place],DM,CVA,Lung disease,renal dise ase Surgical History Surgery Date(Month/Year) Appendectomy
--- OUTSIDE RECORDS SUMMARY | 2024-12-02 11:03 | XMS_ITS | Patient Health Record ---
Author Organization [facility] Address [address] [place] [address] Care Team Providers Care State Highway Police Officer Name Role Phone Nawaf Willams MD Primary Care Provider Claudia Griffin Unavailable [phone] Allergies No Known Allergies Reason For Referral No Information Medications Medication SIG (Take, Route, Frequency, Duration) Notes Start Date End Date Status Dexilant 60 MG 1 capsule Orally Onc e a day Active Cymbalta 30 MG 1 capsule Orally Onc e a day; Duration: 30 day(s) 02/15/2023 Active Sildenafil Citrate 100 [...] 07/31/2024 Encounters Encounter Location Date Provider Diagnosis [address] [address] 07/31/2024 Claudia Osei Ingrown nail L60.0 ; Fungal infection of nail B35.1 ; Pain in toe of left foot M79.675 and Pain in toe of right foot M79.[address] [address] 01/22/2024 Claudia Osei [address] [address] 07/31/2024 Claudia Osei Assessments Encounter Date Diagnosis [...] Insured Coverage Start Date Coverage End Date [facility] [address] [place] [address] [phone] [id number] Samuel Mcdonnell Self - patient is the insured 3 Medical (General) History Medical History History ICD Code Anxiety CAD (Cholesterol) covid-19 Headaches Stomach ulcer Joint implants/screws Surgical History Surgery Date(Month/Year) tendon 2012 & 2022
--- OUTSIDE RECORDS SUMMARY | 2024-12-02 11:03 | XMS_ITS | Clinical Summary ---
Author Organization [address] [address] Phone Care Team Providers Care Interactive Media Marketing Director Name Role Phone Unavailable Primary Care Provider [...] cancer screening, Colonoscopy 2002 Diabetes screening 2002 Pneumococcal Vaccine (50+ ye ars) (1 of 1 - PCV) 2007 Shingles vaccine (Shingrix) (1 of 2 - Shingrix (RZV) 2 Dose Standard Series) 2007 Covid-19 vaccine series (1 - season) 2024 Influenza vaccine 01/18/2025 RSV Immunization (1 - 1-dose 75+ series) 01/13/2032 Meningococcal Vaccine Aged Out No yaneli jesica eligible based on patient's age to complete this topic
== END 2024-12-02 10:33 | disposition home or self-care (01) ==
LOC: HO.HOP 10:28
PROVIDERS: PCP Internal Medicine; Visit Provider Psychiatry & Neurology Psychiatry
DX: F34.1 Dysthymic disorder (principal); F41.1 Generalized anxiety disorder
CPT/HCPCS: 99214

== ENCOUNTER → 2024-12-02 10:28 | Outpatient (BNVA) | payer MEDICARE, SELFPAY | PROVIDERS: PCP Internal Medicine; Visit Provider Psychiatry & Neurology Psychiatry | DX: F34.1 Dysthymic disorder (principal); F41.1 Generalized anxiety disorder | CPT/HCPCS: 99212 ==

== ENCOUNTER 2024-12-10 08:28 | Outpatient (REF) | payer MEDICARE, SELFPAY ==
--- OUTSIDE RECORDS SUMMARY | 2023-10-31 05:00 | XMS_ITS ---
Author Organization [facility] Address [address] [place] [address] Care Team Providers Care Hydrogeology Professor Name Role Phone Arnaldo Archer Primary Care [...] 1 qhs for 30 04/28/2020 A ctive traZODone HCl 100 MG 1 tablet at bedtime Orally Once a day Active DEXILANT DR 60 MG CAPSULE 0 1 qam for 30 [address] 30 MG CAP 60 1 qam 04/28/2020 Not-Taking Ubrelvy 100 MG TAKE 1 TABLET BY SOURAV ALONG WITH 2 IBUPROFEN AT ONSET OF MIGRAINE. MAY REPEAT 1 TIME AFTER 2 HOURS IF HEADACHE RETURNS for 30 Active Nortriptyline HCl 10 MG TAKE 2 CAPSULES BY MOUTH AT BEDTIME for 90 days Active VITAMIN D3 1,000 UNIT SOFTGEL 25 MCG (1,000 UNIT) 0 1 qam for 30 04/28/2020 Active Eletriptan Hydrobromide 40 MG 1 tablet Orally at onset of migraine. May repeat dose after 2 hours if migraine recurs. for 30 days Active ring relief 0 1 qhs for tinnitus for 30 04/28/2020 Active Vital Signs Blood pressure systolic 135 mm Hg 10/31/19 24 Blood pressure diastolic 85 mm Hg 024 Heart Rate 65 /min 10/31/2023 Height 69 in 10/31/2023 Weight 166.5 lbs 10/31/2023 BMI 24.59 kg/m2 10/31/2023 Weight-kg 75.52 kg 10/31/2023 Encounters Encounter Location Date Provider Diagnosis [facility] [address] [place] [address] 10/31/2023 Arnaldo Archer Chronic migraine wit hout aura, intractable, without status migrainosus G43.719 Assessments Encounter Date Diagnosis (ICD Code) Assessment Notes Treatment Notes Treatment Clinical Notes Section Notes 10/31/2023 Chronic migraine without aura, intractable, without status migrainosus (ICD-10 - G43.719) Plan Of Treatment No Information Progress Notes * Samuel SPARKSDOB:1954 (69 yo M)Acc No.[id number]:10/31/2023 Progress Notes Patient: Samuel NIEVES Provider: Dorcas Archer MD :1955 A ge:68 Y S ex:Male Date:10/31/2023 Address:[address] [place] [address], [facility], [id number] Subjective: * Chief Complaints: * * Medical [...] Treatment: * Billing Information: * Visit Code: 97363 OFFICE VISIT,EST PT,LEVEL 4. * Procedure Codes: * Electronic signature [place], [id number] on 12/10/2024 at 08:48 AM EDT Sign off status: Pending * Provider: Dorcas Archer MD Date: 0 10/31/2023 Generated for Rachelle guzman/Yannick/Ortega on: 12/10/2024 08:48 AM EDT
--- OUTSIDE RECORDS SUMMARY | 2024-12-02 05:40 | XMS_ITS ---
Author Organization [facility] Address [address] [place] [address] Care Team Providers Care Ux Design Lead Name Role Phone Nawaf Willams MD Primary Care Provider Meghan Underwood Jr, Fredis Weber REASON FOR VISIT Patient presents today for a colon screening Encounters Encounter Location Date Provider Diagnosis [facility] [address] [facility] [address] [place] [address] 12/02/2024 Fredis Underwood Jr Plan Of Treatment Next Appt Details Provider Name:Rosendo Garner , 04/27/2025 09:50:00 AM, [address] [place] [address], [address], [place], [address], Progress Notes * REGULO SPARKSDOB:1954 (69 yo M)Acc No.[id number]:12/02/2024 Progress Notes Patient: Glenn AURORAREGULO Provider: Blair Underwood MD :1955 A ge:69 Y S ex:Male Date:12/02/2024 Address[facility] [facility] [place] Pcp:Nawaf Willams MD Subjective: * Chief Complaints: [...] Pending * Provider: Blair Underwood MD Date: 12/02/2024 Generated for Rachelle guzman/Yannick/Ortega on: 12/10/2024 08:48 AM EDT
--- OUTSIDE RECORDS SUMMARY | 2024-12-10 08:48 | XMS_ITS | Clinical Summary ---
Author Organization [facility] Address [address] [facility] [address] [place] [address] Phone Care Team Providers Care Sheetmetal Worker Name Role Phone Nawaf Willams MD Unavailable [phone] Nawaf Willams MD Primary Care Provider [phone] Allergies No known active allergies Medications topiramate (TOPAMAX) 50 MG tablet Take 1 tablet by mouth nightly. Active POLYETHYLENE GLYCOL 3350 (MIRALAX ORAL) Take by mouth daily. Active traZODone (DESYREL) 100 MG tablet Take 1 tablet by mouth daily. Active Medication-Free Text Glucosamine 1500 Complex 1500mg Capsule, Si tab Orally bid Active eletriptan (RELPAX) 40 MG tablet 1 tablet at onset of headache, may repeat after 2 hours if headache returns Orally Twice a day prn Active lidocaine (LIDODERM) 5 % Place 1 patch onto the skin daily. Elbow(dr see) 020 Active nortriptyline (PAMELOR) 10 MG capsule Take 20 mg by mouth nightly at bedtime. 021 Active ketoconazole 2 % cream Apply 1 application topically daily. 60 g 4 022 Active triamcinolone acetonide 0.1 % creamIndications:Rash and nonspecific skin eruption APPLY TOPICALLY TWO TIMES A DAY 45 g 023 Active Additional Information Patient taking differently: 1 application. Topical As needed, Reported on 11/08/2022 atorvastatin (LIPITOR) 10 MG tabletIndications:Pure hypercholesterolemia Take 1 tablet (10 mg total) by mouth daily. 90 tablet 3 023 Active ubrogepant (UBRELVY) 100 mg tablet Take 100 mg by mouth 2 (two) times a day as needed. Active sildenafiL (VIAGRA) 100 mg tabletIndications:Impot ence TAKE 1 TABLET BY MOUTH DAILY NEEDED 18 tablet 3 023 Active tacrolimus (PROTOPIC) 0.1 % ointment Apply 1 Application topically 2 (two) times a day. 024 Active dexlansoprazole delayed release (DEXILANT) 60 mg capsuleIndications:Delmy roesophageal reflux disease take 1 capsule by mouth daily 90 capsule 3 024 Active testosterone (ANDROGEL) 1 % (50 mg/5 gram) transdermal gel packet Place 50 mg of testosterone onto the skin daily. 025 Active tadalafiL (CIALIS) 10 MG tablet Take 10 mg by mouth nightly at bedtime. Active diphenoxylate-atropine (LOMOTIL) 2.5-0.025 mg per tabletIndications:Diarr hea, unspecified type Take 1 tablet by mouth 4 (four) times a day as needed for diarrhea. 40 tablet 1 025 Active Active Problems Problem Noted Date Diagnosed Date Allergic rhinitis 09/05/2017 Bilateral headaches 09/05/2017 Gastroesophageal reflux disease 09/05/2017 Headache 09/05/2017 Hyperlipidemia 09/05/2017 Irritable bowel 09/05/2017 Irritable bowel syndrome 09/05/2017 Osteoarthritis 09/05/2017 Pure hypercholesterolemia 09/05/2017 Tendonitis 09/05/2017 Migraine Immunizations Immunization Administration Dates Next Due COVID-19 (Pre-03/11) Moderna Vaccine, mRNA, PF 08/15/2020,07/17/2020 Influenza High-Dose Quadriva lent Preservative Free IM 04/17/2023,02/21/2022 Influenza Quadrivalent Prese rvative Free IM 03/02/2021,04/21/2019,03/11/2018,2015,03/08/2015 Influenza Recombinant Delmy valent Preservative Free IM 03/29/2020 Influenza Trivalent Preserva tive Free IM 02/04/2024 Influenza, Unspecified Formulation 02/02/2010, Pneumococcal conjugate PCV20 05/07/2022 Td (adult) 5 Lf Tetanus Toxo id, PF, Adsorbed 09/17/2006 Tdap 11/12/2022,07/08/2012 Zoster recombinant 04/08/2018,01/02/2018 Family History Medical History Relation Comments Diabetes Brother 2 Hip fracture Brother 2 Neuropathy Brother 2 Obesity Brother 2 Heart disease Father Heart failure Mother Relation Status Comments Brother 1 Brother 2 Alive frequent falls Father (Age 95) d/t old age Mother Alive Sister Alive Social History Tobacco Use Types Packs/Day Years Used Date Smoking Tobacco: Never Smokeless Tobacco: Never Tobacco Cessation:Counseling Given: Not Answered Alcohol Use Standard Drinks/Week Comments Yes 6 (1 standard drink = 0.6 oz pur e alcohol) Child or Family Care Answer Date Record ed Do you have problems with on e of the following making it difficult for you to work, study, or receive health care? Yes 05/07/2022 Education Answer Date Recorded Are you interested in more education? Not on ghassan e 05/12/2024 Are you concerned about learning? Not on file 05/12/2024 No 05/12/2024 No 05/12/2024 Food Answer Date Recorded Within the past 6 months we worried whether our food would run out before we got money to buy more. Never True 05/07/2022 Within the past 6 months the food we bought just didn't last and we didn't have enough money to get more. Never True Residential Stability Answer Date Recor ded What is your housing situation today? I have malik sing 05/07/2022 How many times have you move d in the past 12 months? Zero (I did not move) 05/07/2022 Paying for Meds Answer Date Recorded Do you have trouble paying for medicines? No 05/07/2022 Paying Utility Bills Answer Date Record ed Do you have trouble paying your heating or elect ricity bill? No 05/07/2022 Transportation Answer Date Recorded Has the lack of transportati on kept you from medical appointments or from getting medications? No 05/07/2022 Unemployment Answer Date Recorded Are you currently unemployed or working on a part-time or temporary basis, and looking for work? Yes 05/07/2022 Digital Access Answer Date Recorded No 10/13/2022 No 10/13/2022 Reliable internet access at home? Not on file 10/13/2022 Device with a working camera? Not on file Intimate Partner Violence Answer Date R ecorded Denied Basic Needs Not on file 07/27/2024 In the past 12 months have y ou been in a relationship with a person who hurts, threatens, or tries to control you? No 07/27/2024 Worried food would run out Not on file 07/27 In the past 12 months have y ou been in a relationship with a person who hurts, threatens, or tries to control you? No 07/27/2024 Sex and Gender Information Value Date Recorded Sex Assigned at Male 07/18/2020 2:36 PM EST Legal Sex Male 9:53 PM EDT Gender Identity Male 07/18/2020 2:36 PM EST Sexual Orientation Not on file Last Filed Vital Signs Vital Sign Reading Time Taken Comments Blood Pressure 124/77 07/30/2024 7:54 AM EDT Pulse 63 07/30/2024 7:54 AM EDT Temperature 36.1 C (97 F) 07/30/2024 7:54 AM EDT Respiratory Rate 22 07/30/2024 7:54 AM EDT Oxygen Saturation 100% 07/30/2024 7:54 AM EDT Inhaled Oxygen Concentration - - Weight 78.4 kg (172 lb 12.8 oz) 07/30/2024 7:54 AM EDT Height 173.8 cm (5' 8.43 ) 07/30/2024 7:54 AM ED T Body Mass Index 25.95 07/30/2024 7:54 AM EDT Plan of Treatment Upcoming Encounters Date Type Department Care Team (Late st Contact Info) Description 01/22/2025 8:30 AM EDT Office Visit [facility] [address] [place] [address] Nawaf Willams MD [address] [place] [address] Health Maintenance Due Date Last Done Comments COLOGUARD 2002 FOBT 2002 SIGMOIDOSCOPY 2002 VIRTUAL COLONOSCOPY 2002 RSV VACCINE (1 - Risk 60-74 years 1-dose series) 2017 FIT TEST 08/09/2017 08/09/2016 COVID-19 VACCINE ( - season) 2024 04/17/2021, 08/15/2020, 07/17/2020 COLONOSCOPY 11/26/2024 11/26/2014, 11/26/2014 COLORECTAL CANCER SCREENING 11/26/2024 DEPRESSION SCREENING 07/27/2025 07/27/2024 SCREENING FOR DIABETES 07/31/2027 07/30/2024, 2024 LIPID PANEL 07/30/2029 07/30/2024, 01/18, 07/19/2023, Additional history exists Adult Td,Tdap Booster 11/12/2032 11/12/2022 , 07/08/2012, 09/17/2006 ZOSTER VACCINES Completed 04/08/2018, 01/02/2018 HEPATITIS C SCREENING Completed 10/10/2018 PNEUMOCOCCAL VACCINES (50+ years) Completed 05/07/2022 SMOKING STATUS SCREENING (Once After 26 Yrs) Completed 07/30/2024 HEPATITIS A VACCINES Aged Out No long er eligible based on patient's age to complete this topic HIB VACCINES Aged Out No longer eligi ble based on patient's age to complete this topic MENINGOCOCCAL VACCINES (ACWY) Aged Out No longer eligible based on patient's age to complete this topic MENINGOCOCCAL VACCINES (B) Aged Out N o longer eligible based on patient's age to complete this topic Medical Devices Not on file Procedures Procedure Name Priority Date/Time Associated Diagnosis Comments LIPID PANEL Routine 07/30/2024 8:59 AM EDT Pure hypercholesterolemia HEPATITIS C ANTIBODY, QUALITATIVE Routine 10/10/2018 9:27 AM EDT Need for hepatitis C screening test HM COLONOSCOPY FOR RESULT ENTRY ONLY Routine 11/26/2014 10:35 AM EDT from Last 3 Months or Most Recently Relevant to Health Maintenance Results * (ABNORMAL) Lipid panel (07/30/2024 8:59 AM EDT) HDL 101 mg/dL [facility] Comment: Interpretation <40 mg/dL: Low HDL cholesterol (major risk factor for CHD) Greater than or equal to 60 mg/dL: High HDL cholesterol ( negative risk factor for CHD) HDL - cholesterol is affected by a number of factors, e.g. smoking, excerise, hormones, sex and age. CHOLESTEROL 275(H) 0 - 240 mg/dL [facility] TRIGLYCERIDES 52 30 - 160 mg/dL [facility] LDL 164(H) 50 - 129 mg/dL [facility] Comment: LDL levels in terms of risk for coronary heart disease: <100 mg/dL: Optimal 100-129 mg/dL: Near or above optimal 130-159 mg/dL: Borderline high 160-189 mg/dL: High >190 mg/dL: Very High CARDIAC RISK RATIO 2.7(L) 3.4 - 5.0 C [facility] Blood 07/30/2024 8:59 AM EDT 07/30/2024 9:03 AM EDT us Nawaf Willams MD LAB BLOOD ORDERABLES Final Re sult Performing Organization Address [facility] [address]/[facility] [employer] Phone Number [address] [address] * Hepatitis C antibody, qualitative (10/10/2018 9:27 AM EDT) HCV Negative Negative [facility] Comment: This is a screening test and should be confirmed with molecular testing Blood 10/10/2018 9:27 AM EDT 10/10/2018 9:32 AM EDT us Nawaf Willams MD LAB BLOOD ORDERABLES Final Re sult Performing Organization Address [facility] [address] [employer] Phone Number [address] [address] * HM COLONOSCOPY FOR RESULT ENTRY ONLY (11/26/2014 10:35 AM EDT) Adeola Rea MA - 11/26/2014 10:35 AM EDT Hyperplastic polyp us Historical Provider HEALTH MAINTENANCE Edited Result - Final from Last 3 Months or Most Recently Relevant to Health Maintenance Insurance [employer] [employer] POS PPO REPLACEMENT [employer] [place] [employer] PPO REPLACEMENT [employer] [place] [employer] PPO REPLACEMENT [employer] [place] [employer] PPO REPLACEMENT [employer] [place] [employer] PPO REPLACEMENT [employer] [place] [employer] PPO REPLACEMENT Member Subscriber Plan / Payer (Ef fective 2023-Present) Name:Samuel Dugan Relation to Subscriber:Self Name:Samuel Dugan Payer ID:Not on file Type:Medicare Address: [place] [id number] Care Teams Sheetmetal Worker Relationship Specialty Start Date End Date Nawaf Willams MD [address] [place] [address] PCP - General 04/18/17 Nawaf Willams MD [address] [place] [address] Historical LMR Provider 03/09/17 Additional Source Comments The information contained in this document represents components of the legal health record. It is not the complete legal health record.[facility]
--- OUTSIDE RECORDS SUMMARY | 2024-12-10 08:48 | XMS_ITS | Patient Health Record ---
Author Organization [facility] Address [address] [place] [address] Care Team Providers Care Clinical Resource Nurse Name Role Phone Nawaf Willams MD Primary Care Provider Claudia Griffin Unavailable [phone] Allergies No Known Allergies Reason For Referral [...] Encounters Encounter Location Date Provider Diagnosis [address] [address] 07/31/2024 Claudia Osei Ingrown nail L60.0 ; Fungal infection of nail B35.1 ; Pain in toe of left foot M79.675 and Pain in toe of right foot M79.[address] [address] 01/22/2024 Claudia Osei [address] [address] 07/31/2024 Claudia Osei Assessments Encounter Date Diagnosis [...] Insured Coverage Start Date Coverage End Date [facility] [address] [place] [address] [phone] [id number] Samuel Mcdonnell Self - patient is the insured 3 Medical (General) History Medical History History ICD Code Anxiety CAD (Cholesterol) covid-19 Headaches Stomach ulcer Joint implants/screws Surgical History Surgery Date(Month/Year) tendon 2012 & 2022
--- OUTSIDE RECORDS SUMMARY | 2024-12-10 08:48 | XMS_ITS | Encounter Summary ---
Author Organization [facility] Address [address] [place] [address] Care Team Providers Care Tool And Die Assembler Name Role Phone Unavailable Primary Care Provider Unavailabl e Reason for Referral * Consultation (Routine) - Closed Specialty Diagnoses / Procedures Referred By Contac t Referred To Contact Neurology Diagnoses Intractable chronic migraine without aura and with status migrainosus Mckenzie Gooden MD [address] [place] [address] [place] [address] Phone: tel: fax: Neurology at [address] [address] Phone: tel: fax: Referral ID Status Reason Start Date Expiration Date V isits Requested Visits Authorized [id number] Closed Specialty Services Required 03/03/2020 03/03/2021 1 1 Encounter Details Date Type Department Care Team (Late st Contact Info) Description 03/03/2020 Transcribed Orders [facility] SCH[facility] [address] [place], [place] [address] Mckenzie Gooden MD [address] [place] [address] [place] [address] Intractable chronic migraine [...]
== END 2024-12-10 08:29 | disposition home or self-care (01) ==
LOC: HO.HMGCLDS 08:28
PROVIDERS: PCP Internal Medicine; Visit Provider Urology
DX: E29.1 Testicular hypofunction (principal)
CPT/HCPCS: 36415; 84403

== ENCOUNTER 2024-12-25 10:09 | Outpatient (AMB) | payer MEDICARE, SELFPAY ==
--- OUTSIDE RECORDS SUMMARY | 2023-10-31 05:00 | XMS_ITS ---
Author Organization [facility] Address [address] [place] [address] Care Team Providers Care Stained Glass Glazier Helper Name Role Phone Arnaldo Archer Primary [...] 10/31/2023 Encounters Encounter Location Date [facility] [address] [place] [address] 10/31/2023 Arnaldo Archer Chronic migraine wit hout aura, intractable, without status migrainosus G43.719 Assessments Encounter Date Diagnosis (ICD Code) Assessment Notes Treatment Notes Treatment Clinical Notes Section Notes 10/31/2023 Chronic migraine without aura, intractable, without status migrainosus (ICD-10 - G43.719) Plan Of Treatment No Information Progress Notes * Samuel SPARKSDOB:1954 (69 yo M)Acc No.[id number]:10/31/2023 Progress Notes Patient: Glenn WANMICHELSamuel Provider: Dorcas Archer MD :1955 A ge:68 Y S ex:Male Date:10/31/2023 Address:[address] [place] [address], [facility] [id number] Subjective: * Chief Complaints: * * Medical [...] Treatment: * Billing Information: * Visit Code: 62776 OFFICE VISIT,EST PT,LEVEL 4. * Procedure Codes: * [place], [id number] on 12/25/2024 at 10:13 AM EDT Sign off status: Pending * Provider: Dorcas Archer MD Date: 0 10/31/2023 Generated for Rachelle guzman/Yannick/Ortega on: 0 12/25/2024 10:13 AM EDT
--- OUTSIDE RECORDS SUMMARY | 2024-12-02 05:40 | XMS_ITS ---
Author Organization [facility] Address [address] [place] [address] Care Team Providers Care Residence Life Coordinator Name Role Phone Nawaf Willams MD Primary Care Provider Meghan Underwood Jr, Fredis Weber REASON FOR VISIT Patient presents today for a colon screening Encounters Encounter Location Date Provider Diagnosis [facility] [address] [facility] [address] [place] [address] 12/02/2024 Fredis Underwood Jr Plan Of Treatment Next Appt Details Provider Name:Rosendo Garner , 04/27/2025 09:50:00 AM, [address] [place] [address], [address], [place], [address], Progress Notes * REGULO SPARKSDOB:1954 (69 yo M)Acc No.[id number]:12/02/2024 Progress Notes Patient: Glenn AURORAREGULO Provider: Blair Underwood MD :1955 A ge:69 Y S ex:Male Date:12/02/2024 [address] [facility] [id number] Pcp:Nawaf Willams MD Subjective: * Chief Complaints: * 1 . Patient presents today for a colon screening. * Medical History: Objective: * Vitals: Assessment: Plan: * Treatment: * * The named appointment provid er may or may not be the originator of this progress note, and it is not deemed complete until electronically signed by the appointment provider. Sign off status: Pending * Provider: Blair Underwood MD Date: 0 12/02/2024 Generated for Rachelle guzman/Yannick/Ortega on: 0 12/25/2024 10:13 AM EDT
--- OUTSIDE RECORDS SUMMARY | 2024-12-25 10:14 | XMS_ITS | Patient Health Record ---
Author Organization [facility] Address [address] [place] [address] Care Team Providers Care Relocation Services Specialist Name Role Phone Nawaf Willams MD Primary Care Provider Claudia Griffin Unavailable [phone] Allergies No Known Allergies Reason For Referral [...] 07/31/2024 Encounters Encounter Location Date Provider Diagnosis [address] [address] 07/31/2024 Claudia Osei Ingrown nail L60.0 ; Fungal infection of nail B35.1 ; Pain in toe of left foot M79.675 and Pain in toe of right foot M79.[address] [address] 01/22/2024 Claudia Osei [address] [address] 07/31/2024 Claudia Osei Assessments Encounter Date Diagnosis [...] Insured Coverage Start Date Coverage End Date [facility] [address] [facility] [place] [address] [phone] [id number] Samuel Mcdonnell Self - patient is the insured 3 Medical (General) History Medical History History ICD Code Anxiety CAD (Cholesterol) covid-19 Headaches Stomach ulcer Joint implants/screws Surgical History Surgery Date(Month/Year) tendon 2012 & 2022
--- OUTSIDE RECORDS SUMMARY | 2024-12-25 10:14 | XMS_ITS | Encounter Summary ---
Author Organization [facility] Address [address] [place] [address] Care Team Providers Care Food Preparation Supervisor Name Role Phone Unavailable Primary Care Provider Unavailabl e Reason for Referral * Consultation (Routine) - Closed Specialty Diagnoses / Procedures Referred By Contac t Referred To Contact Neurology Diagnoses Intractable chronic migraine without aura and with status migrainosus Mckenzie Gooden MD [address] [place] [address] [place] [address] Phone: tel: fax: Neurology at [address] [address] Phone: tel: fax: Referral ID Status Reason Start Date Expiration Date V isits Requested Visits Authorized [id number] Closed Specialty Services Required 03/03/2020 03/03/2021 1 1 Encounter Details Date Type Department Care Team (Late st Contact Info) Description 03/03/2020 Transcribed Orders [facility] SCHEDULING [address] [place], [place] [address] Mckenzie Gooden MD [address] [place] [address] [place] [address] Intractable chronic migraine [...]
--- OUTSIDE RECORDS SUMMARY | 2024-12-25 10:14 | XMS_ITS | Clinical Summary ---
Author Organization [facility] Address [address] [facility] [address] [place] [id number] Phone Care Team Providers Care Resource Recovery Specialist Name Role Phone Nawaf Willams MD Unavailable [phone] Nawaf Willams MD Primary Care Provider [phone] Allergies No known active allergies Medications topiramate [...] 09/05/2017 Pure hypercholesterolemia 09/05/2017 Tendonitis 09/05/2017 Migraine Encounters Date Type Department Care Team Description 12/14/2024 Orders Only [facility] [place] Internal [facility] [address] [facility] [place] [id number] Provider, MD Chris from Last 3 Months Immunizations Immunization Administration Dates Next Due COVID-19 (Pre-03/11) Moderna Vaccine, mRNA, PF 08/15/2020,07/17/2020 INFLUENZA, SPLIT VIRUS, TRIVALENT PF 02/04/2024 Influenza High-Dose Quadriva lent Preservative Free IM 04/17/2023,02/21/2022 Influenza Quadrivalent Prese rvative Free IM 03/02/2021,04/21/2019,03/11/2018,2015,03/08/2015 Influenza Recombinant Delmy valent Preservative Free IM 03/29/2020 Influenza, Unspecified Formulation 02/02/2010, Pneumococcal conjugate PCV20 [...] Description 01/22/2025 8:30 AM EDT Office Visit [facility] Internal Medicine [address] [facility] [place] [address] Nawaf Willams MD [address] [place] [address] [email or web address] Maintenance Due Date Last Done Comments COLOGUARD 2002 FOBT 2002 SIGMOIDOSCOPY 2002 VIRTUAL COLONOSCOPY 2002 RSV VACCINE (1 - Risk 60-74 years 1-dose series) 2017 FIT TEST 08/09/2017 08/09/2016 COVID-19 VACCINE ( season) 2024 04/17/2021, 08/15/2020, 07/17/2020 COLONOSCOPY 11/26/2024 [...] Procedure Name Priority Date/Time Associated Diagnosis Comments TESTOSTERONE, TOTAL AND FREE Routine 12/10/2024 11:16 AM EDT LIPID PANEL Routine 07/30/2024 8:59 AM EDT Pure hypercholesterolemia HEPATITIS C ANTIBODY, QUALITATIVE Routine 10/10/2018 9:27 AM EDT Need for hepatitis C screening test COLONOSCOPY FOR RESULT ENTRY ONLY Routine 11/26/2014 10:35 AM EDT from Last 3 Months or Most Recently Relevant to Health Maintenance Results * Testosterone, total and free (12/10/2024 11:16 AM EDT) us Historical Provider LAB BLOOD ORDERABLES Marlen l Result * (ABNORMAL) Lipid panel (07/30/2024 8:59 AM EDT) HDL 101 mg/dL [facility] Comment: Interpretation <40 mg/dL: Low HDL cholesterol (major risk factor for CHD) Greater than or equal to 60 mg/dL: High HDL cholesterol ( negative risk factor for CHD) HDL - cholesterol is affected by a number of factors, e.g. smoking, excerise, hormones, sex and age. CHOLESTEROL 275(H) 0 - 240 mg/dL [facility] TRIGLYCERIDES 52 30 - 160 mg/dL [facility] LDL 164(H) 50 - 129 mg/dL [facility] Comment: LDL levels in terms of risk for coronary heart disease: <100 mg/dL: Optimal 100-129 mg/dL: Near or above optimal 130-159 mg/dL: Borderline high 160-189 mg/dL: High >190 mg/dL: Very High CARDIAC RISK RATIO 2.7(L) 3.4 - 5.0 [facility] Blood 07/30/2024 8:59 AM EDT 07/30/2024 9:03 AM EDT us Nawaf Willams MD LAB BLOOD ORDERABLES Final Re sult [facility] [address] [place] [address] * Hepatitis C antibody, qualitative (10/10/2018 9:27 AM EDT) HCV Negative Negative [facility] Comment: This is a screening test and should be confirmed with molecular testing Blood 10/10/2018 9:27 AM EDT 10/10/2018 9:32 AM EDT us Nawaf Willams MD LAB BLOOD ORDERABLES Final Re sult [facility] [address] [place] [address] * COLONOSCOPY FOR RESULT ENTRY ONLY (11/26/2014 10:35 AM EDT) Impressions Adeola Feliciano [place] - 11/26/2014 10:35 AM EDT Hyperplastic polyp us Historical Provider HEALTH MAINTENANCE Edited Result - Final from Last 3 Months or Most Recently Relevant to Health Maintenance Insurance [employer] PPO REPLACEMENT Member Subscriber Plan / Payer (Ef fective 2023-Present) Name:Samuel Dugan Relation to Subscriber:Self Name:Samuel Dugan Payer ID:Not on file Type:Medicare Address: [place] [id number] [employer] POS PPO REPLACEMENT Member Subscriber Plan / Payer (Ef fective 2023-Present) Name:Samuel Dugan Relation to Subscriber:Self Name:Samuel Dugan Payer ID:Not on file Type:Medicare Address: [place] [id number] [place], [place] [employer] POS PPO REPLACEMENT [facility] MEDICARE POS PPO REPLACEMENT [employer] [place] [employer] POS PPO REPLACEMENT [facility] MEDICARE POS PPO REPLACEMENT Care Teams Resource Recovery Specialist Relationship Specialty Start Date End Date Nawaf Willams MD [address] [place] [address] [email or web address] PCP - General 04/18/17 Nawaf Willams MD [address] [place] [address] [email or web address] Historical LMR Provider 03/09/17 Additional Source Comments The information contained in this document represents components of the legal health record. It is not the complete legal health record.[facility]
--- NOTE | 2024-12-25 10:22 | A.OFFVIS_ITS ---
Intake Visit Reasons: 4m/Testo Intake Note: Patient is present for 4M/TESTO Urology Medication:TADALAFIL,TESTOSTERONE Antibiotic Allergy:NONE Blood Thinner:NONE LABS DONE: 12/10/2024 TOTAL PSA 462 Showcase Trimmer Required: No Accompanied by: Self / Same As Patient Allergies No Known Allergies Allergy (Verified 12/25/24 10:23) HPI Comments Details: Samuel is a pleasant male. He is a patient of Dr. Willams. He is referred for the following urologic conditions - elevated PSA - erectile dysfunction - hot flashes Four month follow-up T stable Is starting to have nocturnal erectile activity Suggest increasing on demand PDE5 to 2 tabs Continue with current dosing Six-month follow-up lab work Hypogonadism 06/13 T 225 FT 18 LH 38 P 3.7 Started T 06/13 - 1 packet per day 08/11 451, 2 Erectile dysfunction Progressive - Has been on SSRIs Noted to have hot flashes 03:00 in the morning Trial daily tadalafil with three-month follow-up testosterone and estrogen labs - Neurologist called william moon Elevated PSA Reports prior PSA had been upper end normal range Minimal issues with urination GLORIA normal No family history prostate cancer Has been given instructions optimized PSA testing PSA 03/09 3.9, 10/08 3.6, 10/09 3.6, 08/10 4.1, 02/10 T 367 F 19 PFSH Medical History Generalized anxiety disorder Dysthymia (or depressive neurosis) History of GI bleed Chronic headache disorder Social History Current occupational status: employed 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 Review of Systems Const Denies chills and Denies fever(s) Card Reports no additional complaints and Denies syncope Resp Denies cough GI Denies abdominal pain and Denies heartburn Reports as per HPI and Denies change in libido Neuro Denies syncope Psych Denies change in libido Endo Denies change in libido Physical Exam Const General: cooperative, healthy appearing, comfortable and no acute distress Orientation/consciousness: patient oriented x3 HEENT Face and sinus: Yes normal facial exam Mouth: moist mucous membranes Neck Neck: Yes normal visual inspection, Yes full ROM and Yes trachea midline Chest Chest palpation & inspection: normal inspection of the chest Resp Effort & Inspection: normal respiratory effort, able to speak in complete sen tences and no respiratory distress GI Inspection: Yes normal to inspection Back/Spine/Pelvis Cervical Spine: normal cervical lordosis Thoracic/Lumbar Spine: thoracic and lumbar spine normal to inspection Skin General skin exam: no rashes or lesions noted Neuro General: patient oriented x3, gait normal, tone normal and moves all extremities Extrem General: Yes normal to inspection and Yes capillary refill normal Assessment & Plan Assessment & Plan (1) Elevated PSA: Code(s): R97.20 - Elevated prostate specific antigen [PSA] Category: Medical (2) Erectile dysfunction: Code(s): N52.9 - Male erectile dysfunction, unspecified Category: Medical (3) Acquired testicular failure: Code(s): E29.1 - Testicular hypofunction Category: Medical (4) Hypogonadism in male: Code(s): E29.1 - Testicular hypofunction Category: Medical Plan Six-month follow-up lab work Orders: Orders Testosterone, Total 5 Months E29.1 - Testicular hypofunction Prostate Specific Antigen 5 Months E29.1 - Testicular hypofunction Hematocrit 5 Months E29.1 - Testicular hypofunction Medications: Refilled tadalafil 10 mg PO DAILY 90 tabs 1RF sexual activity 90 days N52.9 - Male erectile dysfunction, unspecified testosterone Apply to shoulder and rub in until dry 1 packet transdermal DAILY 150 grams 5RF 30 days E29.1 - Testicular hypofunction Patient Instructions: This note is constructed using voice recognition software. While every effort has been made to ensure accuracy capacity planning engineer errors may have been included. Imaging studies, laboratory and physical exam results were discussed and reviewed in detail. No major barriers to patient understanding were identified. An opportunity to ask questions regarding the treatment plan was provided. All questions were answered. The patient expressed understanding and agreement with the above treatment plan. The patient is aware they should contact our office by phone for worsening of their current condition or the appearance of new urologic symptoms. Compliance is encouraged with any medications and followup testing that is ordered. It is a privilege to participate in the urologic care of your patient. If you have any questions or concerns regarding treatment for the above conditions, or other urologic issues, please do not hesitate to contact me. The office telephone contact is [phone]. Sincerely, Dr Johnny White [email or web address] [facility] - Urology Compassionate Specialist Care for the Genitourinary System Coding Level of Care Code Est Pt Level 3 (38736) Complex EM visit Add On G2211 Diagnoses Elevated PSA R97.20 Erectile dysfunction N52.9 Acquired testicular failure E29.1 Hypogonadism in male E29.1
== END 2024-12-25 10:52 | disposition home or self-care (01) ==
LOC: HO.HUSH 10:09
PROVIDERS: PCP Internal Medicine; Visit Provider Urology
DX: R97.20 Elevated prostate specific antigen [PSA] (principal); N52.9 Male erectile dysfunction, unspecified; E29.1 Testicular hypofunction
CPT/HCPCS: 99213; G2211

== ENCOUNTER → 2024-12-25 10:09 | Outpatient (BNVA) | payer MEDICARE, SELFPAY | PROVIDERS: PCP Internal Medicine; Visit Provider Urology | DX: E29.1 Testicular hypofunction (principal); R97.20 Elevated prostate specific antigen [PSA]; N52.9 Male erectile dysfunction, unspecified | CPT/HCPCS: 99212 ==

== ENCOUNTER 2025-04-09 10:55 | Outpatient (AMB) | payer MEDICARE, SELFPAY ==
--- OUTSIDE RECORDS SUMMARY | 2023-10-31 04:00 | XMS_ITS ---
Author Organization [facility] Address [address] [place] [address] Care Team Providers Care Floor Helper Name Role Phone Arnaldo Archer Primary Care Provider Nawaf Willams Unavailable Unavailable Medications Medication SIG (Take, Route, Frequency, Duration) Notes Start Date End Date Status Cialis 10 MG 1 tablet Orally Once a day 10/31/2023 Active Nurtec 75 MG 1 tablet on the tong ue and allow to dissolve Orally Not-Taking GLUCOSAMINE-CHONDROITIN LIQ 1,500-1,200 MG/30 ML 0 1 qhs; Duration: 04/28/2020 Active traZODone HCl 100 MG 1 tablet at bedtime Orally Once a day Active DEXILANT DR 60 MG CAPSULE 0 1 qam; Duration: [address] 30 MG CAP 60 1 qam 04/28/2020 Not-Taking Ubrelvy 100 MG TAKE 1 TABLET BY SOURAV ALONG WITH 2 IBUPROFEN AT ONSET OF MIGRAINE. MAY REPEAT 1 TIME AFTER 2 HOURS IF HEADACHE RETURNS; Duration: 30 Active Nortriptyline HCl 10 MG TAKE 2 CAPSULES BY MOUTH AT BEDTIME; Duration: 90 days Active VITAMIN D3 1,000 UNIT SOFTGEL 25 MCG (1,000 UNIT) 0 1 qam; Duration: 30 04/28/2020 Active Eletriptan Hydrobromide 40 MG 1 tablet Orally at onset of migraine. May repeat dose after 2 hours if migraine recurs.; Duration: 30 days Active ring relief 0 1 qhs for tinnitus ; Duration: 30 04/28/2020 Active Vital Signs Blood pressure systolic 135 mm Hg 10/31/19 24 Blood pressure diastolic 85 mm Hg 024 Heart Rate 65 /min 10/31/2023 Height 69 in 10/31/2023 Weight 166.5 lbs 10/31/2023 BMI 24.59 kg/m2 10/31/2023 Weight-kg 75.52 kg 10/31/2023 Encounters Encounter Location Date Provider Diagnosis [facility] [address] [place] [address] 10/31/2023 Arnaldo Archer Chronic migraine wit hout aura, intractable, without status migrainosus G43.719 Assessments Encounter Date Diagnosis (ICD Code) Assessment Notes Treatment Notes Treatment Clinical Notes Section Notes 10/31/2023 Chronic migraine without aura, intractable, without status migrainosus (ICD-10 - G43.719) Plan Of Treatment No Information Progress Notes * Samuel SPARKSDOB:1954 (70 yo M)Acc No.[id number]:10/31/2023 Progress Notes Patient: Glenn WANMICHELSamuel Provider: Dorcas Archer MD :1955 A ge:68 Y S ex:Male Date:10/31/2023 Address:[address] [place] [address], [facility] [id number] Subjective: * Chief Complaints: * * Medical History: * Medications: T aking Cialis 10 MG Tablet 1 tablet Orally Once a day , Taking traZODone HCl 100 MG Tablet 1 tablet at bedtime Orally Once a day , Taking DEXILANT DR [address] BP 0 1 qam , Taking GLUCOSAMINE-CHONDROITIN LIQ 1,500-1,200 MG/30 ML LIQUID 0 1 qhs , Taking ring relief 0 1 qhs for tinnitus , Taking VITAMIN D3 1,000 UNIT SOFTGEL 25 MCG (1,000 UNIT) CAPSULE 0 1 qam , Taking Eletriptan Hydrobromide 40 MG Tablet 1 tablet Orally at onset of migraine. May repeat dose after 2 hours if migraine recurs. , Taking Ubrelvy 100 MG Tablet TAKE 1 TABLET BY MOUTH ALONG WITH 2 IBUPROFEN AT ONSET OF MIGRAINE. MAY REPEAT 1 TIME AFTER 2 HOURS IF HEADACHE RETURNS , Taking Nortriptyline HCl 10 MG Capsule TAKE 2 CAPSULES BY MOUTH AT BEDTIME , Not-Taking DULOXETINE HCL DR 30 MG CAP 60 1 qam , Not-Taking Nurtec 75 MG Tablet Disintegrating 1 tablet on the tongue and allow to dissolve Orally Objective: * Vitals: B P:135/85mm Hg, HR:65/min, Wt:166.5lbs, Wt-k.52 kg, Ht: 69 in, BMI:24.59Index, Body Surface Area: 1.92. Assessment: * Assessment: 1. C hronic migraine without aura, intractable, without status migrainosus - G43.719 (Primary)? Plan: * Treatment: * Billing Information: * Visit Code: 08174 OFFICE VISIT,EST PT,LEVEL 4. * Procedure Codes: * Electronic signature [place], [id number] on 04/09/2025 at 11:46 AM EST Sign off status: Pending * Provider: Dorcas Archer MD Date: 0 10/31/2023 Generated for Rachelle guzman/Yannick/eTalexismitting on: 1 06/09/2024 11:46 AM EST
--- OUTSIDE RECORDS SUMMARY | 2024-12-02 04:40 | XMS_ITS ---
Author Organization [facility] Address [address] [place] [address] Care Team Providers Care Surgical Attendant Name Role Phone Nawaf Willams MD Primary Care Provider Meghan Underwood Jr, Fredis Weber REASON FOR VISIT Patient presents today for a colon screening Encounters Encounter Location Date Provider Diagnosis [facility] [address] [facility] [address] [place] [address] 12/02/2024 Fredis Underwood Jr Plan Of Treatment Next Appt Details Provider Name:Rosendo Garner , 04/27/2025 09:50:00 AM, [address] [place] [address], [address], [place], [address], Progress Notes * REGULO SPARKSDOB:1954 (70 yo M)Acc No.[id number]:12/02/2024 Progress Notes Patient: Glenn AURORAREGULO Provider: Blair Underwood MD :1955 A ge:69 Y S ex:Male Date:12/02/2024 [address] [id number] Pcp:Nawaf Willams MD Subjective: * Chief Complaints: [...] 0 12/02/2024 Generated for Rachelle guzman/Yannick/Ortega on: 1 06/09/2024 11:45 AM EST
--- NOTE | 2025-04-09 11:46 | A.OFFPSYCH_ITS ---
Intake Intake Visit Reasons: depression Allergies No Known Allergies Allergy (Verified 12/25/24 10:23) HPI- Psychiatric Chief Complaint: depression HPI Narrative: , 11:09 AM (37m) PATIENT SUMMARY The patient presented for a follow-up appointment to address ongoing issues with chronic dysphoria anxiety and migraines and to discuss possible medication side effects. HPI The patient reported experiencing chronic tension headaches, describing them as pretty much unbearable over the last two weeks. The patient believed the headaches were exacerbated by stress at work, where five colleagues were recently laid off, increasing the patient's workload. The patient had been using uBrevli for migraines with mixed results. The patient also mentioned taking Topamax for weight control and to aid in migraine prevention, although unsure if it was effective. The patient reported a significant increase in appetite, potentially linked to duloxetine, and issues with impotence for which the patient was taking tadalafil. Despite the medication, the patient noted ongoing problems with erectile dysfunction, specifically an erection problem, but no issues with desire. MENTAL STATUS The patient stated their mood as unbearable due to the chronic tension headaches. PAIN The patient reported a pain level of 8 out of 10 due to headaches. BACKGROUND The patient did not report any new allergies or medications. The patient mentioned a past liver function test indicating abnormal results, possibly related to overuse of Excedrin, which contains Tylenol. The patient was using testosterone cream and taking atorvastatin. The patient was also taking nortriptyline, trazodone, and Topamax. The patient had not experienced any notable physical symptoms related to these medications. Past Psychiatric History: hyx chronic anxiety and depression Mental Status Exam Mental Status Exam Narrative: Narrative: Mental Status Exam Narrative: Appearance: Casually dressed Behavior: Cooperative appropriate psychomotor: Within normal limits Speech: Normal volume and prosody Thought proccess logical and goal-directed Thought content: Focused on treatment issues overtaking [id number] pain medication Can not stand the constant pain discussed issues with the weight gain erectile dysfunction Assessment and Plan Assessment & Plan (1) Dysthymia (or depressive neurosis): Status: Acute Code(s): F34.1 - Dysthymic disorder (2) Generalized anxiety disorder: Status: Acute Code(s): F41.1 - Generalized anxiety disorder (3) Transaminitis: Status: Acute Code(s): R74.01 - Elevation of levels of liver transaminase levels (4) History of GI bleed: Status: Acute Code(s): Z87.19 - Personal history of other diseases of the digestive system Plan Lower Cymbalta 30 mg every other day patient has pills at home reviewed withdraw al symptoms discussed issues regarding to weight gain sexual dysfunction on antidepressants although there can certainly be other reasons. Check CBC liver panel question of overuse of Tylenol Medications: Discontinued duloxetine Discontinued Reason: Doctor's Order 60 mg PO DAILY 90 caps 1RF Orders: Orders Liver Panel Today G89.29 - Other chronic pain, R51.9 - Headache, unspecified, R74.01 - Elevation of levels of liver transaminase levels Complete Blood Count Auto Diff Today G44.40 - Drug-induced headache, not elsewhere classified, not intractable, R74.01 - Elevation of levels of liver transaminase levels, T39.95XA - Adverse effect of unspecified nonopioid analgesic, antipyretic and antirheumatic, initial encounter Counseling and coordination of Care Details: I spent [] minutes reviewing the record, seeing the patient and documenting in the medical record. Counseling provided to the patient/caregiver as outlined below. Addressed patient/caregiver concerns regarding current medication regime including effective adherence. Addressed patient/caregiver concerns regarding diagnosis and prognosis including accuracy of diagnosis, prognosis over time, impact of diagnosis. Addressed patient/caregiver concerns regarding impact of recent stressors. 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
--- OUTSIDE RECORDS SUMMARY | 2025-04-09 11:49 | XMS_ITS | Clinical Summary ---
Author Organization [facility] Address [address] [place] [address] Phone Care Team Providers Care Pluck Trimmer Name Role Phone Nawaf Willams MD Unavailable [phone] Nawaf Willams MD Primary Care Provider [phone] Allergies No known active allergies Medications topiramate [...] TIMES A DAY 45 g 023 Active atorvastatin (LIPITOR) 10 MG tabletIndications:Pure hypercholesterolemia Take 1 tablet (10 mg total) by mouth daily. 90 tablet 3 023 Active ubrogepant (UBRELVY) 100 mg tablet Take 100 mg by mouth 2 (two) times a day as needed. Name brand Active sildenafiL (VIAGRA) 100 mg tabletIndications:Impot ence TAKE 1 TABLET BY MOUTH DAILY NEEDED 18 tablet 3 023 Active tacrolimus (PROTOPIC) 0.1 % ointment Apply 1 Application topically 2 (two) times a day. 024 Active testosterone (ANDROGEL) 1 % (50 [...] for diarrhea. 40 tablet 1 025 Active DULoxetine (CYMBALTA) 60 MG capsule Take 60 mg by mouth daily. 025 Active dexlansoprazole delayed release (DEXILANT) 60 mg capsuleIndications:Delmy roesophageal reflux disease TAKE 1 CAPSULE BY MOUTH DAILY 90 capsule 3 025 Active Active Problems Problem Noted Date Diagnosed Date Allergic rhinitis 09/05/2017 Bilateral headaches 09/05/2017 Gastroesophageal reflux disease 09/05/2017 Headache 09/05/2017 Hyperlipidemia 09/05/2017 Irritable bowel 09/05/2017 Irritable bowel syndrome 09/05/2017 Osteoarthritis 09/05/2017 Pure hypercholesterolemia 09/05/2017 Tendonitis 09/05/2017 Migraine Encounters Date Type Department Care Team Description 01/29/2025 Refill [facility] [address] [place] [address] Nawaf Willams MD Medication Refill 01/24/2025 Telephone [facility] [address] [place] [address] Nawaf Willams MD Results 01/22/2025 9:17 AM EDT - 01/22/2025 11:59 PM EDT Hospital Encounter [facility] [address] [place] [address] Nawaf Willams MD Discharge Disposition: Home or Self Care 01/22/2025 8:30 AM EDT [facility] [address] [facility] [address] Nawaf Willams MD Diarrhea, unspecified type (Primary Dx); Chronic nonintractable headache, unspecified headache type; Need for prophylactic vaccination and inoculation against influenza; Pure hypercholesterolemia; Impaired fasting glucose from Last 3 Months Immunizations Immunization Administration Dates Next Due COVID-19 (Pre-03/11) Moderna Vaccine, mRNA, PF 08/15/2020,07/17/2020 INFLUENZA, SPLIT VIRUS, TRIVALENT PF 02/04/2024 Influenza High-Dose Quadriva lent Preservative Free IM 04/17/2023,02/21/2022 Influenza High-Dose Trivalen t Preservative Free IM 01/22/2025 Influenza Quadrivalent Prese rvative Free IM 03/02/2021,04/21/2019,03/11/2018,2015,03/08/2015 Influenza Recombinant Delmy valent Preservative Free IM 03/29/2020 Influenza, Unspecified Formulation 02/02/2010, Pneumococcal conjugate PCV20 05/07/2022 Td (adult) 5 Lf Tetanus Toxo id, PF, Adsorbed 09/17/2006 Tdap 11/12/2022,07/08/2012 Zoster recombinant 04/09/2018,01/02/2018 Family History Medical History Relation Comments Diabetes [...] Sign Reading Time Taken Comments Blood Pressure 116/77 01/22/2025 8:19 AM EDT Pulse 74 01/22/2025 8:19 AM EDT Temperature 36.8 C (98.2 F) 01/22/2025 8:19 AM EDT Respiratory Rate 16 01/22/2025 8:19 AM EDT Oxygen Saturation 96% 01/22/2025 8:19 AM EDT Inhaled Oxygen Concentration - - Weight 78.2 kg (172 lb 6.4 oz) 01/22/2025 8:19 A M EDT Height 173.8 cm (5' 8.43 ) 01/22/2025 8:19 AM ED T Body Mass Index 25.89 01/22/2025 8:19 AM EDT Plan of Treatment Upcoming Encounters Date Type Department Care Team (Late st Contact Info) Description 08/18/2025 8:00 AM EDT Office Visit [facility] [address] [place] [address] Nawaf Willams MD [address] [place] [address] 01/19/2026 8:00 AM EDT Office Visit [facility] [address] [place] [address] Martinez Dailey PA-C [address] [place] [address] Health Maintenance Due Date Last Done Comments COLOGUARD 2002 FOBT 2002 SIGMOIDOSCOPY 2002 VIRTUAL COLONOSCOPY 2002 FIT TEST 08/09/2017 08/09/2016 COLONOSCOPY 11/26/2024 11/26/2014, 11/26/2014 COLORECTAL CANCER SCREENING 11/26/2024 COVID-19 VACCINE ( season) 2025 04/17/2021, 08/15/2020, 07/17/2020 DEPRESSION SCREENING 07/27/2025 07/27/2024 SCREENING FOR DIABETES 01/23/2028 01/22/2025, 2024 LIPID PANEL 01/22/2030 01/22/2025, 07/18, 02/04/2024, Additional history exists RSV VACCINE (1 - 1-dose 75+ series) 01/13/2032 Adult Td,Tdap Booster 11/12/2032 11/12/2022 , 07/08/2012, 09/17/2006 ZOSTER VACCINES Completed 04/09/2018, 01/02/2018 HEPATITIS C SCREENING Completed 10/10/2018 PNEUMOCOCCAL VACCINES (50+ years) Completed 05/07/2022 INFLUENZA VACCINE Completed 01/22/2025, , 04/17/2023, Additional history exists SMOKING STATUS SCREENING (Once After 26 Yrs) Completed 01/22/2025 HEPATITIS A VACCINES Aged Out No long [...] Procedure Name Priority Date/Time Associated Diagnosis Comments COMPREHENSIVE METABOLIC PANEL (CMP) Routine 01/22/2025 9:17 AM EDT Chronic nonintractable headache, unspecified headache type Pure hypercholesterolemia CBC AND DIFFERENTIAL Routine 01/22/2025 9:17 AM EDT Chronic nonintractable headache, unspecified headache type Pure hypercholesterolemia HEMOGLOBIN A1C Routine 01/22/2025 9:17 AM EDT Impaired fasting glucose LIPID PANEL Routine 01/22/2025 9:17 AM EDT Pure hypercholesterolemia TSH WITH REFLEX Routine 01/22/2025 9:17 AM EDT Pure hypercholesterolemia HEPATITIS C ANTIBODY, QUALITATIVE Routine 10/10/2018 9:27 AM EDT Need for hepatitis C screening test HM COLONOSCOPY FOR RESULT ENTRY ONLY Routine 11/26/2014 10:35 AM EDT from Last 3 Months or Most Recently Relevant to Health Maintenance Results * (ABNORMAL) Comprehensive metabolic panel (01/22/2025 9:17 AM EDT) SODIUM 138 133 - 146 mmol/L [facility] POTASSIUM 4.6 3.3 - 5.1 mmol/L [facility] CHLORIDE 102 96 - 108 mmol/L [facility] CO2 26 21 - 35 mmol/L [facility] BUN 23(H) 6 - 19 mg/dL [facility] CREATININE 1.00 0.5 - 1.5 mg/dL [facility] GLUCOSE 100(H) 70 - 99 mg/dL [facility] ALBUMIN 4.3 3.9 - 4.8 g/dL [facility] TOTAL PROTEIN 7.2 6.5 - 8.0 g/dL [facility] CALCIUM 9.6 8.4 - 10.3 mg/dL [facility] ALKALINE PHOSPHATASE 112 39 - 117 U/L [facility] TOTAL BILIRUBIN <0.2 0.0 - 1.2 mg/dL [facility] AST 50(H) 0 - 37 U/L [facility] ALT 45(H) 0 - 40 U/L [facility] GLOBULIN 2.9 1 - 4.8 g/dL [facility] EGFR 82 >59 mL/min/1.7 3m2 [facility] Comment:Estimated glomerular filtration rate calculated using the CKD-EPI refit equation. ANION GAP 15 10 - 20 mmol/L [facility] Blood 01/22/2025 9:17 AM EDT 01/22/2025 9:22 AM EDT us Nawaf Willams MD LAB BLOOD BKR ORDERABLES Marlen benites Result [facility] [address] [place] [address] * TSH with reflex (01/22/2025 9:17 AM EDT) TSH 1.32 0.27 - 4.20 uIU/mL [facility] Blood 01/22/2025 9:17 AM EDT 01/22/2025 9:22 AM EDT us Nawaf Willams MD LAB BLOOD BKR ORDERABLES Marlen kamari Result [facility] [address] [place] [address] * (ABNORMAL) CBC and differential (01/22/2025 9:17 AM EDT) WBC 5.13 4.00 - 11.00 K/uL [facility] RBC 4.92 4.50 - 5.90 M/uL [facility] HGB 14.5 13.5 - 17.5 g/dL [facility] HCT 45.5 41.0 - 53.0 % [facility] PLT 338 150 - 450 K/uL [facility] MCV 92.5 80.0 - 100.0 fL [facility] MCH 29.5 27.0 - 31.0 pg [facility] MCHC 31.9(L) 32.0 - 36.0 g/dL [facility] RDW 13.2 11.5 - 14.5 % [facility] MPV 9.1 8.4 - 12.0 fL [facility] NRBC 0.00 0.00 /100 WBCs [facility] ABSOLUTE NRBC 0.00 0.00 K/uL [facility] DIFF METHOD Auto [facility] NEUTS 53.1 48.0 - 76.0 % [facility] LYMPHS 28.7 18.0 - 41.0 % [facility] MONOS 12.3(H) 4.0 - 11.0 % [facility] EOS 4.7 0.0 - 5.0 % [facility] BASOS 0.6 0.0 - 1.5 % [facility] Granulocytes, immature (%) 0.6 0.0 - 0.9 % [facility] ABSOLUTE NEUTS 2.73 1.92 - 7.60 K/uL [facility] ABSOLUTE LYMPHS 1.47 0.72 - 4.10 K/uL [facility] ABSOLUTE MONOS 0.63 0.16 - 1.10 K/uL [facility] ABSOLUTE EOS 0.24 0.00 - 0.50 K/uL [facility] ABSOLUTE BASOS 0.03 0.00 - 0.15 K/uL [facility] Granulocytes, immature 0.03 0.00 - 0.09 K/uL [facility] Blood 01/22/2025 9:17 AM EDT 01/22/2025 9:22 AM EDT Nawaf Willams MD LAB BLOOD BKR ORDERABLES Marlen l Result Performing Organization Address City/[facility]/ZIP Co de Phone Number [address] [address] * Hemoglobin A1c (01/22/2025 9:17 AM EDT) HEMOGLOBIN A1C 5.3 4.3 - 5.8 % [facility] Blood 01/22/2025 9:17 AM EDT 01/22/2025 9:22 AM EDT Nawaf Willams MD LAB BLOOD BKR ORDERABLES Marlen l Result Performing Organization Address [facility] Co de Phone Number [address] [address] * (ABNORMAL) Lipid panel (01/22/2025 9:17 AM EDT) HDL 74 mg/dL [facility] Comment: Interpretation <40 mg/dL: Low HDL cholesterol (major risk factor for CHD) Greater than or equal to 60 mg/dL: High HDL cholesterol ( negative risk factor for CHD) HDL - cholesterol is affected by a number of factors, e.g. smoking, excerise, hormones, sex and age. CHOLESTEROL 202 0 - 240 mg/dL [facility] TRIGLYCERIDES 72 30 - 160 mg/dL [facility] LDL 114 50 - 129 mg/dL [facility] Comment: LDL levels in terms of risk for coronary heart disease: <100 mg/dL: Optimal 100-129 mg/dL: Near or above optimal 130-159 mg/dL: Borderline high 160-189 mg/dL: High >190 mg/dL: Very High CARDIAC RISK RATIO 2.7(L) 3.4 - 5.0 C [facility] Blood 01/22/2025 9:17 AM EDT 01/22/2025 9:22 AM EDT Nawaf Willams MD LAB BLOOD BKR ORDERABLES Marlen l Result Performing Organization Address City/[facility]/ZIP Co de Phone Number [address] [address] * Hepatitis C antibody, qualitative (10/10/2018 9:27 AM EDT) HCV Negative Negative [facility] Comment: This is a screening test and should be confirmed with molecular testing Blood 10/10/2018 9:27 AM EDT 10/10/2018 9:32 AM EDT Nawaf Willams MD LAB BLOOD BKR ORDERABLES Marlen l Result Performing Organization Address [facility]/ZIP Co de Phone Number [address] [address] * COLONOSCOPY FOR RESULT ENTRY ONLY (11/26/2014 10:35 AM EDT) Impressions Adeola Feliciano [place] - 11/26/2014 10:35 AM EDT Hyperplastic polyp Historical Provider HEALTH MAINTENANCE Edited Result - Final from Last 3 Months or Most Recently Relevant [place] [id number] [employer] POS PPO REPLACEMENT [employer] [place] [employer] POS PPO REPLACEMENT [employer] [place] POS PPO [place] [address] MEDICARE POS PPO REPLACEMENT [facility] [place] [place] [employer] [place] PPO REPLACEMENT [facility] [place] [employer] [place] POS [facility]PO RE[facility] [place] Care Teams Pluck Trimmer Relationship Specialty Start Date End Date Nawaf Willams MD [address] [place] [address] [email or web address] PCP - General 04/18/17 Nawaf Willams MD [address] [place] [address] [email or web address] Historical LMR Provider 03/09/17 Additional Source Comments The information contained in this document represents components of the legal health record. It is not the complete legal health record.[facility]
--- OUTSIDE RECORDS SUMMARY | 2025-04-09 11:49 | XMS_ITS | Patient Health Record ---
Author Organization [facility] Address [address] [place] [address] Care Team Providers Care Band Splitter Name Role Phone Nawaf Willams MD Primary Care Provider Claudia Griffin Unavailable [phone] Allergies No Known Allergies Reason For Referral [...] 07/31/2024 Encounters Encounter Location Date Provider Diagnosis [address] [address] 07/31/2024 Claudia Osei Ingrown nail L60.0 ; Fungal infection of nail B35.1 ; Pain in toe of left foot M79.675 and Pain in toe of right foot M79.[facility] [address] 07/31/2024 Claudia Osei Assessments Encounter Date Diagnosis [...] Insured Coverage Start Date Coverage End Date [facility] [address] [place] [address] [id number] Samuel Mcdonnell Self - patient is the insured 3 Medical (General) History Medical History History ICD Code Anxiety CAD (Cholesterol) covid-19 Headaches Stomach ulcer Joint implants/screws Surgical History Surgery Date(Month/Year) tendon 2012 & 2022
--- OUTSIDE RECORDS SUMMARY | 2025-04-09 11:49 | XMS_ITS | Patient Health Record ---
Author Organization [facility] Address [address] [place] [address] Care Team Providers Care Production Supervisor Trainee Name Role Phone Nawaf Willams MD Primary Care Provider UnavailFredis Antunez Jr [phone] Reason For Referral No Information Medications Medication SIG (Take, Route, Frequency, Duration) Notes Start Date End Date Status Lomotil Active traZODone HCl 100 MG Tablet Orally Active Cymbalta 30 MG Capsule Delayed Release Particles 1 capsule Orally Twice a day Active Topamax 100 MG Tablet 1 tablet Orally On ce a day Active Dexilant 60 MG Capsule Delayed Release 1 capsule Orally Once a day Active Glucosamine Chondr 1500 Complx 1500 mg Capsule 1 Orally QD Activ e Relpax 40 MG Tablet 1 tablet as needed o ne time Orally Once a day Active Social History Social History Additional Details Category Social Info Options Details Miscellaneous: Marital status: 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 [address] [place] [address] 12/02/2024 Fredis Underwood Jr Plan Of Treatment Future Test Test Name Order Date COLONOSCOPY 08/25/2014 Next Appt Details Provider Name:Rosendo Garner , 04/27/2025 09:50:00 AM, [address], [address], [place], [address], Insurance Providers Payer Name Payer Address Payer Phone Subscriber Number Group Number Insured Name Patient Relationship to Insured Coverage Start Date Coverage End Date [facility] [address] [place] [address] [id number] REGULO ESTRADA Self - patient is the insured Medical (General) History Medical History History ICD Code Colonoscopy, 2007, diverticulosis IBS Headaches Depression Stress Peptic disease Denies [place],DM,CVA,Lung disease,renal dise ase Surgical History Surgery Date(Month/Year) Appendectomy
--- OUTSIDE RECORDS SUMMARY | 2025-04-09 11:49 | XMS_ITS | Encounter Summary ---
Author Organization [facility] Address [address] [place] [address] Care Team Providers Care Tank Builder Helper Name Role Phone Unavailable Primary Care Provider Unavailabl e Reason for Referral * Consultation (Routine) - Closed Specialty Diagnoses / Procedures Referred By Contac t Referred To Contact Neurology Diagnoses Intractable chronic migraine without aura and with status migrainosus Mckenzie Gooden MD [address] [place] [address] [place] [address] Phone: tel: fax: Neurology at [address] [address] Phone: tel: fax: Referral ID Status Reason Start Date Expiration Date V isits Requested Visits Authorized [id number] Closed Specialty Services Required 03/03/2020 03/03/2021 1 1 Encounter Details Date Type Department Care Team (Late st Contact Info) Description 03/03/2020 Transcribed Orders [facility] [address] [place], [place] [id number] Mckenzie Gooden MD [address] [place] [address] [place] [address] Intractable chronic migraine [...]
--- OUTSIDE RECORDS SUMMARY | 2025-04-09 11:49 | XMS_ITS | Patient Health Record ---
Author Organization [facility] Address [address] [place] [address] Care Team Providers Care Boil Off Machine Operator Cloth Name Role Phone Arnaldo Archer Primary Care [...] AFTER 2 HOURS IF HEADACHE RETURNS; Duration: 90 days 05/29/2025 Active Topiramate 50 MG TAKE 1 TABLET BY MOUTH ONCE DAILY; Duration: 90 Active VITAMIN D3 1,000 UNIT SOFTGEL 25 MCG (1,000 UNIT) 0 1 qam; Duration: 30 04/28/2020 Active Eletriptan Hydrobromide 40 MG 1 tablet Orally at onset of migraine. May repeat dose after 2 hours if migraine recurs.; Duration: 30 days Active GLUCOSAMINE-CHONDROITIN LIQ 1,500-1,200 MG/30 ML 0 1 qhs; Duration: 30 04/28/2020 Active ring relief 0 1 qhs for tinnitus ; Duration: 30 04/28/2020 Active Nortriptyline HCl 10 MG TAKE 2 CAPSULES BY MOUTH AT BEDTIME; Duration: 90 days Active traZODone HCl 100 MG 1 tablet at bedtime Orally Once a day Active DEXILANT DR 60 MG CAPSULE 0 1 qam; Duration: 30 Active Problems Problem Type SNOMED Code ICD Code Onset Dates Problem Status W/U Status Risk Notes Problem Chronic migraine without aura, non-intractable (100245528492856 ) Chronic migraine without aura, not intractable, without status migrainosus (G43.709) Active confirmed Problem Chronic intractable migraine without aura (533764376368152 ) Chronic migraine without aura, intractable, with status migrainosus (G43.711) Active confirmed Problem Chronic intractable migraine without aura (065274647194212 ) Chronic migraine without aura, intractable, without status migrainosus (G43.719) Active confirmed Encounters Encounter Location Date Provider [facility] [address] [place] [address] 06/03/2024 Arnaldo Archer Chronic migraine wit h [...] Insured Coverage Start Date Coverage End Date [facility] [address] [facility] [place] [id number] Samuel Mcdonnell Self - patient is the insured 4 Medical (General) History Medical History History ICD Code Headaches Anxiety GERD GI bleed Erectile Dysfunction Sleep disturbance HLD Tinnitus Surgical History Surgery Date(Month/Year) left elbow surgery appendectomy Bilat elbow surgery 12/11/22 Hospitalization History Reason Date(Month/Year) Stitches L hand Broken left hand 09/2022
--- OUTSIDE RECORDS SUMMARY | 2025-04-09 11:49 | XMS_ITS | Clinical Summary ---
Author Organization [address] [address] Phone Care Team Providers Care Applique Sewer Name Role Phone Unavailable Primary Care Provider [...] Shingrix (RZV) 2 Dose Standard Series) 2007 Influenza vaccine 12/18/2024 Covid-19 vaccine series (1 - season) 2025 RSV Immunization (1 - 1-dose 75+ series) 01/13/2032 Meningococcal B Vaccine Aged Out No l onger eligible based on patient's age to complete this topic Meningococcal Vaccine Aged Out No yaneli jesica eligible based on patient's age to complete this topic
== END 2025-04-09 13:46 | disposition home or self-care (01) ==
LOC: HO.HOP 10:56
PROVIDERS: PCP Internal Medicine; Visit Provider Psychiatry & Neurology Psychiatry
DX: F34.1 Dysthymic disorder (principal); F41.1 Generalized anxiety disorder; R74.01 Elevation of levels of liver transaminase levels; Z87.19 Personal history of other diseases of the digestive system
CPT/HCPCS: 90833; 99213

== ENCOUNTER → 2025-04-09 10:55 | Outpatient (BNVA) | payer MEDICARE, SELFPAY | PROVIDERS: PCP Internal Medicine; Visit Provider Psychiatry & Neurology Psychiatry | DX: F34.1 Dysthymic disorder (principal); F41.1 Generalized anxiety disorder; R74.01 Elevation of levels of liver transaminase levels; Z87.19 Personal history of other diseases of the digestive system | CPT/HCPCS: 99212 ==

== ENCOUNTER 2025-04-12 15:06 | Outpatient (REF) | payer MEDICARE, SELFPAY ==
--- OUTSIDE RECORDS SUMMARY | 2023-10-31 04:00 | XMS_ITS ---
Author Organization [facility] Address [address] [place] [address] Care Team Providers Care Crop Duster Name Role Phone Arnaldo Archer Primary Care [...] 10/31/2023 Encounters Encounter Location Date [facility] [address] [place] [address] 10/31/2023 Arnaldo Archer Chronic migraine wit hout aura, intractable, without status migrainosus G43.719 Assessments Encounter Date Diagnosis (ICD Code) Assessment Notes Treatment Notes Treatment Clinical Notes Section Notes 10/31/2023 Chronic migraine without aura, intractable, without status migrainosus (ICD-10 - G43.719) Plan Of Treatment No Information Progress Notes * Samuel SPARKSDOB:1954 (70 yo M)Acc No.[id number]:10/31/2023 Progress Notes Patient: Glenn WANMICHELSamuel Provider: Dorcas Archer MD :1955 A ge:68 Y S ex:Male Date:10/31/2023 Address:[address] [place] [address], [facility] [id number] Subjective: * Chief Complaints: * * Medical [...] Treatment: * Billing Information: * Visit Code: 52436 OFFICE VISIT,EST PT,LEVEL 4. * Procedure Codes: * Electronic signature [place], [id number] on 04/12/2025 at 07:51 PM EST Sign off status: Pending * Provider: Dorcas Archer MD Date: 0 10/31/2023 Generated for Rachelle guzman/Yannick/eTalexismitting on: 06/12/2024 07:51 PM EST
--- OUTSIDE RECORDS SUMMARY | 2024-12-02 04:40 | XMS_ITS ---
Author Organization [facility] Address [address] [place] [address] Care Team Providers Care Driver License Examiner Name Role Phone Nawaf Willams MD Primary Care Provider Meghan Underwood Jr, Fredis Weber REASON FOR VISIT Patient presents today for a colon screening Encounters Encounter Location Date Provider Diagnosis [facility] [address] [facility] [address] [place] [address] 12/02/2024 Fredis Underwood Jr Plan Of Treatment Next Appt Details Provider Name:Rosendo Garner , 04/27/2025 09:50:00 AM, [address] [place] [address], [address], [place], [address], Progress Notes * REGULO SPARKSDOB:1954 (70 yo M)Acc No.[id number]:12/02/2024 Progress Notes Patient: Glenn AURORAREGULO Provider: Blair Underwood MD :1955 A ge:69 Y S ex:Male Date:12/02/2024 [address] [facility] [id number] Pcp:Nawaf Willams MD Subjective: * Chief Complaints: * P atient presents today for a colon screening Billing Information: * Procedure Codes: * The named appointment provid er may or may not be the originator of this progress note, and it is not deemed complete until electronically signed by the appointment provider. Sign off status: Pending * Provider: Blair Underwood MD Date: 0 12/02/2024 Generated for Rachelle guzman/Yannick/Ortega on: 06/12/2024 07:51 PM EST
[2025-04-12 16:06] LABS: MANUAL DIFF FLAG NO
[2025-04-12 16:11] LABS: Hematocrit 45.3 % (42.0-52.0); Hemoglobin 14.7 g/dl (14.0-18.0); Imm Gran Abs Auto 0.02 X10*3/uL (0.00-0.03); Imm Gran Pct Auto 0.4 % (0.0-0.4); Lymphocytes Absolute Auto 1.2 X10*3/uL (1.2-4.9); Mean Corpuscular HGB Conc 32.5 g/dl (31.0-36.0); Mean Corpuscular Hemoglobin 30.1 pg (27.0-33.0); Mean Corpuscular Volume 92.8 fL (80.0-98.0); NRBC Abs Auto 0.000 X10*3/uL (0.0-0.012); NRBC Pct Auto 0.0 /100WBC (0.0-0.2); Platelet Count 287 X10*3/uL (160-400); Red Blood Count 4.88 X10*6/uL (4.60-5.80); White Blood Count 5.1 X10*3/uL (4.8-10.8)
[2025-04-12 17:14] LABS: Alanine Aminotransferase 22 U/L (0-40); Albumin Level 4.4 g/dL (3.5-5.0); Alkaline Phosphatase 75 U/L (39-117); Aspartate Amino Transferase 25 U/L (5-37); Total Protein 7.0 g/dL (6.5-8.0)
--- OUTSIDE RECORDS SUMMARY | 2025-04-12 19:51 | XMS_ITS | Clinical Summary ---
Author Organization [facility] Address [address] [place] [address] Phone Care Team Providers Care Head Mechanic Name Role Phone Nawaf Willams MD Unavailable [phone] Nawaf Willams MD Primary Care Provider [phone] Allergies No known active allergies Medications topiramate [...] Type Department Care Team Description 01/29/2025 Refill [facility] Internal Medicine [address] [place] [address] Nawaf Willams MD Medication Refill 01/24/2025 Telephone [facility] Internal Medicine [address] [place] [address] Nawaf Willams MD Results 01/22/2025 9:17 AM EDT - 01/22/2025 11:59 PM EDT Hospital Encounter [facility] [address] [place] [address] Nawaf Willams MD Discharge Disposition: Home or Self Care 01/22/2025 8:30 AM EDT [facility] [address] [facility] [place] [address] Nawaf Willams MD Diarrhea, unspecified type (Primary [...] Description 08/18/2025 8:00 AM EDT Office Visit [facility] Internal Medicine [address] [place] [address] Nawaf Willams MD [address] [place] [address] [email or web address] 01/19/2026 8:00 AM EDT Office Visit [facility] Internal Medicine [address] [place] [address] Martinez Dailey PA-C [address] [place] [address] Health Maintenance Due Date Last Done Comments [...] EDT) SODIUM 138 133 - 146 mmol/L [facility] POTASSIUM 4.6 3.3 - 5.1 mmol/L [facility] CHLORIDE 102 96 - 108 mmol/L [facility] CO2 26 21 - 35 mmol/L [facility] BUN 23(H) 6 - 19 mg/dL [facility] CREATININE 1.00 0.5 - 1.5 mg/dL [facility] GLUCOSE 100(H) 70 - 99 mg/dL [facility] ALBUMIN 4.3 3.9 - 4.8 g/dL [facility] TOTAL PROTEIN 7.2 6.5 - 8.0 g/dL [facility] CALCIUM 9.6 8.4 - 10.3 mg/dL [facility] ALKALINE PHOSPHATASE 112 39 - 117 U/L [facility] TOTAL BILIRUBIN <0.2 0.0 - 1.2 mg/dL [facility] AST 50(H) 0 - 37 U/L [facility] ALT 45(H) 0 - 40 U/L [facility] GLOBULIN 2.9 1 - 4.8 g/dL [facility] EGFR 82 >59 mL/min/1.7 3m2 [facility] Comment:Estimated glomerular filtration rate calculated using the CKD-EPI refit equation. ANION GAP 15 10 - 20 mmol/L [facility] Blood 01/22/2025 9:17 AM EDT 01/22/2025 9:22 AM EDT us Nawaf Willams MD LAB BLOOD BKR ORDERABLES Mareln benites Result [facility] [address] [place] [address] * TSH with reflex (01/22/2025 9:17 AM EDT) TSH 1.32 0.27 - 4.20 uIU/mL [facility] Blood 01/22/2025 9:17 AM EDT 01/22/2025 9:22 AM EDT us Nawaf Willams MD LAB BLOOD BKR ORDERABLES Marlen kamari Result [facility] [address] [place] [address] * (ABNORMAL) CBC and differential (01/22/2025 9:17 AM EDT) WBC 5.13 4.00 - 11.00 K/uL [facility] RBC 4.92 4.50 - 5.90 M/uL [facility] HGB 14.5 13.5 - 17.5 g/dL [facility] HCT 45.5 41.0 - 53.0 % [facility] PLT 338 150 - 450 K/uL [facility] MCV 92.5 80.0 - 100.0 fL [facility] MCH 29.5 27.0 - 31.0 pg [facility] MCHC 31.9(L) 32.0 - 36.0 g/dL [facility] RDW 13.2 11.5 - 14.5 % [facility] MPV 9.1 8.4 - 12.0 fL [facility] NRBC 0.00 0.00 /100 WBCs [facility] ABSOLUTE NRBC 0.00 0.00 K/uL [facility] DIFF METHOD Auto [facility] NEUTS 53.1 48.0 - 76.0 % [facility] LYMPHS 28.7 18.0 - 41.0 % [facility] MONOS 12.3(H) 4.0 - 11.0 % [facility] EOS 4.7 0.0 - 5.0 % [facility] BASOS 0.6 0.0 - 1.5 % [facility] Granulocytes, immature (%) 0.6 0.0 - 0.9 % [facility] ABSOLUTE NEUTS 2.73 1.92 - 7.60 K/uL [facility] ABSOLUTE LYMPHS 1.47 0.72 - 4.10 K/uL [facility] ABSOLUTE MONOS 0.63 0.16 - 1.10 K/uL [facility] ABSOLUTE EOS 0.24 0.00 - 0.50 K/uL [facility] ABSOLUTE BASOS 0.03 0.00 - 0.15 K/uL [facility] Granulocytes, immature 0.03 0.00 - 0.09 K/uL [facility] Blood 01/22/2025 9:17 AM EDT 01/22/2025 9:22 AM EDT Nawaf Willams MD LAB BLOOD BKR ORDERABLES Marlen l Result Performing Organization Address City/[facility]/ZIP Co de Phone Number [address] [address] * Hemoglobin A1c (01/22/2025 9:17 AM EDT) HEMOGLOBIN A1C 5.3 4.3 - 5.8 % [facility] Blood 01/22/2025 9:17 AM EDT 01/22/2025 9:22 AM EDT Nawaf Willams MD LAB BLOOD BKR ORDERABLES Marlen l Result Performing Organization Address [facility] Co de Phone Number [address] [address] * (ABNORMAL) Lipid panel (01/22/2025 9:17 AM EDT) HDL 74 mg/dL [facility] Comment: Interpretation <40 mg/dL: Low HDL cholesterol (major risk factor for CHD) Greater than or equal to 60 mg/dL: High HDL cholesterol ( negative risk factor for CHD) HDL - cholesterol is affected by a number of factors, e.g. smoking, excerise, hormones, sex and age. CHOLESTEROL 202 0 - 240 mg/dL [facility] TRIGLYCERIDES 72 30 - 160 mg/dL [facility] LDL 114 50 - 129 mg/dL [facility] Comment: LDL levels in terms of risk for coronary heart disease: <100 mg/dL: Optimal 100-129 mg/dL: Near or above optimal 130-159 mg/dL: Borderline high 160-189 mg/dL: High >190 mg/dL: Very High CARDIAC RISK RATIO 2.7(L) 3.4 - 5.0 [facility] Blood 01/22/2025 9:17 AM EDT 01/22/2025 9:22 AM EDT Nawaf Willams MD LAB BLOOD BKR ORDERABLES Marlen l Result Performing Organization Address City/[facility]/ZIP Co de Phone Number [address] [address] * Hepatitis C antibody, qualitative (10/10/2018 9:27 AM EDT) HCV Negative Negative [facility] Comment: This is a screening test and should be confirmed with molecular testing Blood 10/10/2018 9:27 AM EDT 10/10/2018 9:32 AM EDT Nawaf Willams MD LAB BLOOD BKR ORDERABLES Marlen l Result Performing Organization Address [facility]/ZIP Co de Phone Number [address] [address] * COLONOSCOPY FOR RESULT ENTRY ONLY (11/26/2014 10:35 AM EDT) Impressions Adeola Feliciano MA - 11/26/2014 10:35 AM EDT Hyperplastic polyp Historical Provider HEALTH MAINTENANCE Edited Result - Final from Last 3 Months or Most Recently [id number] [employer] POS PPO REPLACEMENT [employer] [place] [employer] PPO REPLACEMENT [employer] [place] [employer] POS [place] [address] [place] [address] MEDICARE POS PPO REPLACEMENT [facility] [place] [employer] [place] RE[place]AC[place] [facility] [place] [employer] [place] [facility] [place] Care Teams Head Mechanic Relationship Specialty Start Date End Date Nawaf Willams MD [address] [place] [address] [email or web address] PCP - General 04/18/17 Nawaf Willams MD [address] [place] [address] [email or web address] Historical LMR Provider 03/09/17 Additional Source Comments The information contained in this document represents components of the legal health record. It is not the complete legal health record.[facility]
--- OUTSIDE RECORDS SUMMARY | 2025-04-12 19:51 | XMS_ITS | Patient Health Record ---
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 Apprentice Name Role Phone Nawaf Willams MD Primary Care Provider Claudia Griffin Unavailable [phone] Allergies No Known Allergies Reason For Referral [...] 07/31/2024 Encounters Encounter Location Date Provider Diagnosis [address] [address] 07/31/2024 Claudia Osei Ingrown nail L60.0 ; Fungal infection of nail B35.1 ; Pain in toe of left foot M79.675 and Pain in toe of right foot [facility] [address] 07/31/2024 Claudia Osei Assessments Encounter Date Diagnosis [...] Insured Coverage Start Date Coverage End Date [facility] [address] [facility] [place] [address] [phone] [id number] Samuel Mcdonnell Self - patient is the insured 3 Medical (General) History Medical History History ICD Code Anxiety CAD (Cholesterol) covid-19 Headaches Stomach ulcer Joint implants/screws Surgical History Surgery Date(Month/Year) tendon 2012 & 2022
--- OUTSIDE RECORDS SUMMARY | 2025-04-12 19:52 | XMS_ITS | Encounter Summary ---
Author Organization [facility] Address [address] [place] [address] Care Team Providers Care Crew Car Driver Name Role Phone Unavailable Primary Care Provider Unavailabl e Reason for Referral * Consultation (Routine) - Closed Specialty Diagnoses / Procedures Referred By Contac t Referred To Contact Neurology Diagnoses Intractable chronic migraine without aura and with status migrainosus Mckenzie Gooden MD [address] [place] [address] [place] [address] Phone: tel: fax: Neurology at [address] [address] Phone: tel: fax: Referral ID Status Reason Start Date Expiration Date V isits Requested Visits Authorized [id number] Closed Specialty Services Required 03/03/2020 03/03/2021 1 1 Encounter Details Date Type Department Care Team (Late st Contact Info) Description 03/03/2020 Transcribed Orders [facility]UL[facility] [address] [place], [place] [id number] Mckenzie Gooden MD [address] [place] [address] [place] [address] Intractable chronic migraine [...]
--- OUTSIDE RECORDS SUMMARY | 2025-04-12 19:52 | XMS_ITS | Clinical Summary ---
Author Organization [address] [address] Phone Care Team Providers Care Project Admin Name Role Phone Unavailable Primary Care Provider [...]
--- OUTSIDE RECORDS SUMMARY | 2025-04-12 19:52 | XMS_ITS | Patient Health Record ---
Author Organization [facility] Address [address] [place] [address] Care Team Providers Care Wharf Tender Helper Name Role Phone Arnaldo Archer Primary [...] Notes Problem Chronic migraine without aura, non-intractable (911091334428210 ) Chronic migraine without aura, not intractable, without status migrainosus (G43.709) Active confirmed Problem Chronic intractable migraine without aura (116169262655082 ) Chronic migraine without aura, intractable, with status migrainosus (G43.711) Active confirmed Problem Chronic intractable migraine without aura (111542338705184 ) Chronic migraine without aura, intractable, without status migrainosus (G43.719) Active confirmed Encounters Encounter [facility] Date [facility] [address] [place] [address] [facility] Arnaldo Archer Chronic migraine wit h [...] Coverage Start Date Coverage End Date [facility] [address] [facility] [place] [id number] Samuel Mcdonnell Self - patient is the insured 4 Medical (General) History Medical History History ICD Code Headaches Anxiety GERD GI bleed Erectile Dysfunction Sleep disturbance HLD Tinnitus Surgical History Surgery Date(Month/Year) left elbow surgery appendectomy Bilat elbow surgery 12/11/22 Hospitalization History Reason Date(Month/Year) Stitches L hand Broken left hand 09/2022
--- OUTSIDE RECORDS SUMMARY | 2025-04-12 19:52 | XMS_ITS | Patient Health Record ---
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 [address] [place] [address] 12/02/2024 Fredis Underwood Jr Plan Of Treatment Future Test Test Name Order Date COLONOSCOPY 08/25/2014 Next Appt Details Provider Name:Rosendo Garner , 04/27/2025 09:50:00 AM, [address], [address], [place], [address], Insurance Providers Payer Name Payer Address Payer Phone Subscriber Number Group Number Insured Name Patient Relationship to Insured Coverage Start Date Coverage End Date [facility] [address] [place] [address] [id number] REGULO ESTRADA Self - patient is the insured Medical (General) History Medical History History ICD Code Colonoscopy, 2007, diverticulosis IBS Headaches Depression Stress Peptic disease Denies AR,DM,CVA,Lung disease,renal dise ase Surgical History Surgery Date(Month/Year) Appendectomy
== END 2025-04-12 15:07 | disposition home or self-care (01) ==
LOC: HO.HMGCLDS 15:06
PROVIDERS: PCP Internal Medicine; Visit Provider Psychiatry & Neurology Psychiatry
DX: G89.29 Other chronic pain (principal); R74.01 Elevation of levels of liver transaminase levels; G44.40 Drug-induced headache, not elsewhere classified, not intractable; T39.95XA Adverse effect of unspecified nonopioid analgesic, antipyretic and antirheumatic, initial encounter
CPT/HCPCS: 36415; 80076; 85025